=== PATIENT | female | born 1955 | race American Indian/Alaskan Native ===

== ENCOUNTER 2019-10-25 08:40 | Inpatient (IN) | payer OTHER ==
[2019-10-25] MEDS ORDERED: SODIUM CHLORIDE 0.9% 500 ML 500 ML IV ONE (09:06)
[2019-10-25] MEDS ORDERED: CEFEPIME/NS 1 GM/100 ML 1 GM/100 ML BAG IV ONE (09:08)
[2019-10-25 09:40] LABS: Bilirubin,Urine NEG (Negative); Blood,Urine NEG (Negative); Color,Urine Amber (Yellow); Mucus,Urine FEW /HPF; Protein,Urine <15 mg/dL mg/dL (Negative); Urobilinogen,Urine < 2.0 mg/dL (<2.0)
--- NOTE | 2019-10-25 09:47 | XRay Report ---
CHEST 1 VIEW 0924 INDICATION / CLINICAL INFORMATION: possible Sepsis. COMPARISON: 08/28/2015 FINDINGS: SUPPORT DEVICES: None HEART / MEDIASTINUM: No significant abnormality LUNGS / PLEURA: Lung yeh are clear of infiltrates. No pneumothorax. ADDITIONAL FINDINGS: No significant additional findings. IMPRESSION: No significant acute abnormality Signer Name: Quinten Anand MD Signed: 10/25/2019 9:43 AM Workstation Name: [id number]
[2019-10-25] MEDS ORDERED: VANCOMYCIN PHARMACY TO DOSE IV SCH (10:00)
[2019-10-25] MEDS ORDERED: VANCOMYCIN 1,500 MG in SODIUM CHLORIDE 0.9% 500 ML 500 ML IV ONE (10:00)
[2019-10-25 10:14] LABS: Hematocrit 41.7 % (30.3-42.9); Hemoglobin 13.4 gm/dl (10.1-14.3); Mean Corpuscular HGB Conc 32 % (30-34); Mean Corpuscular Volume 103 fl (79-97); Platelet Count 136 K/mm3 (140-440); Red Blood Count 4.03 M/mm3 (3.65-5.03); Red Cell Distribution Width 19.4 % (13.2-15.2)
[2019-10-25 10:28] LABS: INR 1.07 (0.87-1.13); Partial Thromboplastin Time 30.4 Sec. (24.2-36.6)
[2019-10-25 10:30] LABS: Creatine Kinase MB 5.5 ng/mL (0.0-4.0)
[2019-10-25 10:31] LABS: Albumin 3.2 g/dL (3.9-5); BUN/Creatinine Ratio 37; Blood Urea Nitrogen 88 mg/dL (7-17); Calcium 9.4 mg/dL (8.4-10.2); Hemolysis Index 110
[2019-10-25 10:32] LABS: Bilirubin,Direct < 0.2 mg/dL (0-0.2)
--- NOTE | 2019-10-25 10:59 | Emergency Department Report ---
ED General Adult HPI - General Chief complaint: Altered Mental Status Stated complaint: POSS STROKE Time Seen by Provider: 10/25/19 09:05 Source: EMS Mode of arrival: Stretcher Limitations: Other - History of Present Illness Initial comments: This is a 64-year-old female who arrives in the emergency department stuporous. She was found in a hotel room. No further information is available regarding her present illness. Upon review of her 2016 discharge summary. Apparently she was here for sepsis at that time. The source was urinary. Apparently she had an obstructive uropathy requiring nephrostomy. She was treated for E. coli sepsis successfull y.: 08/28/15 05:53 PICC Line Placement [Consult to PICC Line RN] [CONS] Urgent Reason For Exam: septic shock Type Line:: PICC 08/28/15 10:18 Consult to Physician [CONS] Routine Consulting Provider: DIONNA COOPER Reason For Exam: urosepsis, worsening leukocytosis Place consult to:: [facility] Notified:: Phone number called:: [phone] Was contact made?: Yes If yes, spoke with:: YOLANDA Time called:: 10:59 08/29/15 12:40 Consult to Physician [CONS] Routine Consulting Provider: BOBBY MUELLER Reason For Exam: left obstructing stone Place consult to:: Dr. Mueller Notified:: OFFICE Phone number called:: [phone] Was contact made?: Yes If yes, spoke with:: JULIA Time called:: 15:34 09/01/15 09:59 Physical Therapy Evaluation and Treat [CONS] Routine Comment: Reason For Exam: debility Primary care physician: DRY CHAIN PULLER Hospitalization Reason for admission: septic shock Condition: Serious Pertinent studies: Chest x-ray on admission-no acute abnormalities CT abdomen and pelvis-3 mm stone in the left mid left ureter causing mild left hydronephrosis Procedures: 08/27-left sided nephrostomy tube placement 09/07/15-cystoscopy and ureteroscopy with laser of the stone and removal of the nephrostomy tube and placement of double J stent Hospital course: This is a 60 yr old female with PMH sx for hypertension admitted on 08/27 for septic shock due to Escherichia coli pyelonephritis with obstructive uropathy and had Escherichia coli bacteremia. CT abdomen pelvis revealed 3 mm stone in the left ureter with mild left-sided hydronephrosis Patient was initially admitted to the intensive care unit and was placed on pressors. Patient was seen in consultation by interventional radiology and had left-sided percutaneous nephrostomy tube placed on 08/27 with findings of gross pus at the time of placement. Urine and blood cultures grew Escherichia coli. Patient was seen in consultation by urology and once the bacteremia was cleared patient had cystoscopy and ureteroscopy with double-J stent placement. Patient was also seen in consultation by ID. She completed treatment with ceftriaxone. Also during hospital stay patient developed acute renal failure and thrombocytopenia which resolved. I have seen and examined the patient today. No complaints verbalized Vitals reviewed and stable Patient is stable at this time to be discharged from the hospital. Patient was evaluated by physical therapy and will request reevaluation prior to discharge for home needs. Patient will be discharged home and she has completed her antibiotics Final diagnoses 1. Septic shock secondary to Escherichia coli pyelonephritis with obstructive uropathy and Escherichia coli bacteremia 2. Acute renal failure resolving 3. Thrombocytopenia resolved 4. Anemia of chronic disease 5. ETOH abuse Total time spent on discharge is about 32 minutes Disposition: DISCHARGED TO HOME OR SELFCARE Severity scale (0 -10): 0 - Related Data Home Medications Medication Instructions Recorded Confirmed Last Taken Citalopram [celeXA] 10 mg PO QDAY 08/27/15 08/27/15 08/24/15 Previous Rx's Medication Instructions Recorded Last Taken Type Folic Acid [Folvite] 1 mg PO QDAY #30 tablet 09/08/15 Unknown Rx Thiamine [Vitamin B-1] 100 mg PO QDAY #30 tablet 09/08/15 Unknown Rx Triamter/Hctz 37.5-25 mg 1 tab PO QDAY #30 tablet 09/08/15 Unknown Rx [Maxzide-25] Cyclobenzaprine [Flexeril] 10 mg PO TID PRN #14 tablet 08/22/16 Unknown Rx HYDROcodone/APAP 5-325 [[place] 1 - 2 each PO Q6HR PRN #14 tablet 08/22/16 Unknown Rx 5/325] Ibuprofen [Motrin 800 MG tab] 800 mg PO Q8HR PRN #20 tablet 08/22/16 Unknown Rx Allergies Allergy/AdvReac Type Severity Reaction Status Date / Time No Known Allergies Allergy Verified 10/25/19 09:17 ED Review of Systems ROS: Stated complaint: POSS STROKE Other details as noted in HPI Comment: Unobtainable due to pts medical conditions ED Past Medical Hx - Past Medical History Hx Hypertension: Yes Hx Heart Attack/AMI: No Hx Congestive Heart Failure: No Hx Diabetes: No Hx Liver Disease: No Hx Renal Disease: No Hx Sickle Cell Disease: No Hx Seizures: No Hx Kidney Stones: Yes Hx Asthma: No Hx COPD: No Additional medical history: JOIE - Surgical History Hx Pacemaker: No Hx Internal Defibrillator: No Additional Surgical History: JOIE - Social History Smoking Status: Unknown if ever smoked - Medications Home Medications: Home Medications Medication Instructions Recorded Confirmed Last Taken Type Citalopram [celeXA] 10 mg PO QDAY 08/27/15 08/27/15 08/24/15 History Folic Acid [Folvite] 1 mg PO QDAY #30 tablet 09/08/15 Unknown Rx Thiamine [Vitamin B-1] 100 mg PO QDAY #30 tablet 09/08/15 Unknown Rx Triamter/Hctz 37.5-25 mg 1 tab PO QDAY #30 tablet 09/08/15 Unknown Rx [Maxzide-25] Cyclobenzaprine [Flexeril] 10 mg PO TID PRN #14 tablet 08/22/16 Unknown Rx HYDROcodone/APAP 5-325 [[place] 1 - 2 each PO Q6HR PRN #14 tablet 08/22/16 Unknown Rx 5/325] Ibuprofen [Motrin 800 MG tab] 800 mg PO Q8HR PRN #20 tablet 08/22/16 Unknown Rx ED Physical Exam - General Limitations: Altered Mental Status, Other (Patient is able to protect her airway) General appearance: lethargic (/Stuporous) - Head Head exam: Present: atraumatic - Eye Eye exam: Present: normal appearance. Absent: scleral icterus - ENT ENT exam: Present: mucous membranes dry - Neck Neck exam: Absent: tenderness, meningismus - Respiratory Respiratory exam: Present: normal lung sounds bilaterally. Absent: respiratory distress - Cardiovascular Cardiovascular Exam: Present: regular rate, normal rhythm. Absent: systolic murmur, diastolic murmur, rubs, gallop - GI/Abdominal GI/Abdominal exam: Present: soft. Absent: distended, tenderness, guarding, rebound - Extremities Exam Extremities exam: Present: normal inspection. Absent: calf tenderness - Back Exam Back exam: Present: other (Limited inspection nothing abnormal seen yet) - Neurological Exam Neurological exam: Present: altered (No gross focality generalized weakness. Minimally verbal.), other (No gross focality generalized weakness. Minimally verbal. Minimal ability to follow command.) - Psychiatric Psychiatric exam: Present: flat affect (And altered) ED Course Vital Signs 10/25/19 10/25/19 09:09 09:11 Temperature 94.3 F L 94.3 F L Pulse Rate 92 H 76 Respiratory 16 13 Rate Blood Pressure 123/72 Blood Pressure 123/72 [Left] O2 Sat by Pulse 100 100 Oximetry - Reevaluation(s) Reevaluation #1: Patient was placed on hypothermia blanket. She was given a fluid bolus. She was presumptively treated for sepsis. Chest x-ray showed nothing acute. CT shows diffuse cerebral calcifications which I think are chronic. Radiologist interpretation is pending. I have ordered a CT of the patient's abdomen and pelvis. I would like to exclude obstructive nephropathy as the patient has experienced this and an E. coli sepsis in the past. I spoke to the hospitalist service. They have accepted this patient further care and evaluation. 10/25/19 11:04 ED Medical Decision Making - Lab Data Result diagrams: 10/25/19 09:15 10/25/19 09:15 Laboratory Results - last 24 hr 10/25/19 10/25/19 10/25/19 09:03 09:15 09:15 WBC 27.7 H RBC 4.03 Hgb 13.4 Hct 41.7 MCV 103 H MCH 33 H MCHC 32 RDW 19.4 H Plt Count 136 L Seg Neutrophils % Back Up Scan Coordinator PT 14.0 INR 1.07 APTT 30.4 VBG pH Sodium Chloride Carbon Dioxide BUN Creatinine Estimated GFR BUN/Creatinine Ratio Glucose Lactic Acid Calcium Magnesium Total Bilirubin Direct Bilirubin Alkaline Phosphatase Ammonia CK-MB (CK-2) Troponin T NT-Pro-B Natriuret Pep Total Protein Albumin Albumin/Globulin Ratio Lipase Urine Color [place] Urine Turbidity Clear Urine pH 5.0 Ur Specific [place] 1.017 Urine Protein <15 mg/dl Urine Glucose (UA) Neg Urine Ketones Neg Urine Blood Neg Urine Nitrite Neg Urine Bilirubin Neg Urine Urobilinogen < 2.0 Ur Leukocyte Esterase Neg Urine WBC (Auto) 3.0 Urine RBC (Auto) 1.0 Urine Mucus Few 10/25/19 10/25/19 10/25/19 09:15 09:15 09:15 WBC RBC Hgb Hct MCV MCH MCHC RDW Plt Count Seg Neutrophils % PT INR APTT VBG pH 7.370 Sodium 143 Chloride 103.5 Carbon Dioxide 13 L BUN 88 H Creatinine 2.4 H Estimated GFR 25 BUN/Creatinine Ratio 37 Glucose 140 H Lactic Acid 3.40 H* Calcium 9.4 Magnesium 3.00 H Total Bilirubin 0.40 Direct Bilirubin < 0.2 Alkaline Phosphatase 121 Ammonia CK-MB (CK-2) 5.5 H Troponin T < 0.010 NT-Pro-B Natriuret Pep 806.3 Total Protein 6.9 Albumin 3.2 L Albumin/Globulin Ratio 0.9 Lipase 194 H Urine Color Urine Turbidity Urine pH Ur Specific [place] Urine Protein Urine Glucose (UA) Urine Ketones Urine Blood Urine Nitrite Urine Bilirubin Urine Urobilinogen Ur Leukocyte Esterase Urine WBC (Auto) Urine RBC (Auto) Urine Mucus 10/25/19 09:15 WBC RBC Hgb Hct MCV MCH MCHC RDW Plt Count Seg Neutrophils % PT INR APTT VBG pH Sodium Chloride Carbon Dioxide BUN Creatinine Estimated GFR BUN/Creatinine Ratio Glucose Lactic Acid Calcium Magnesium Total Bilirubin Direct Bilirubin Alkaline Phosphatase Ammonia 48.0 CK-MB (CK-2) Troponin T NT-Pro-B Natriuret Pep Total Protein Albumin Albumin/Globulin Ratio Lipase Urine Color Urine Turbidity Urine pH Ur Specific [place] Urine Protein Urine Glucose (UA) Urine Ketones Urine Blood Urine Nitrite Urine Bilirubin Urine Urobilinogen Ur Leukocyte Esterase Urine WBC (Auto) Urine RBC (Auto) Urine Mucus Laboratory Results - last 24 hr 10/25/19 10/25/19 10/25/19 09:03 09:15 09:15 WBC 27.7 H RBC 4.03 Hgb 13.4 Hct 41.7 MCV 103 H MCH 33 H MCHC 32 RDW 19.4 H Plt Count 136 L Seg Neutrophils % Back Up Scan Coordinator PT 14.0 INR 1.07 APTT 30.4 VBG pH Sodium Chloride Carbon Dioxide BUN Creatinine Estimated GFR BUN/Creatinine Ratio Glucose Lactic Acid Calcium Magnesium Total Bilirubin Direct Bilirubin Alkaline Phosphatase Ammonia CK-MB (CK-2) Troponin T NT-Pro-B Natriuret Pep Total Protein Albumin Albumin/Globulin Ratio Lipase Urine Color [place] Urine Turbidity Clear Urine pH 5.0 Ur Specific [place] 1.017 Urine Protein <15 mg/dl Urine Glucose (UA) Neg Urine Ketones Neg Urine Blood Neg Urine Nitrite Neg Urine Bilirubin Neg Urine Urobilinogen < 2.0 Ur Leukocyte Esterase Neg Urine WBC (Auto) 3.0 Urine RBC (Auto) 1.0 Urine Mucus Few 10/25/19 10/25/19 10/25/19 09:15 09:15 09:15 WBC RBC Hgb Hct MCV MCH MCHC RDW Plt Count Seg Neutrophils % PT INR APTT VBG pH 7.370 Sodium 143 Chloride 103.5 Carbon Dioxide 13 L BUN 88 H Creatinine 2.4 H Estimated GFR 25 BUN/Creatinine Ratio 37 Glucose 140 H Lactic Acid 3.40 H* Calcium 9.4 Magnesium 3.00 H Total Bilirubin 0.40 Direct Bilirubin < 0.2 Alkaline Phosphatase 121 Ammonia CK-MB (CK-2) 5.5 H Troponin T < 0.010 NT-Pro-B Natriuret Pep 806.3 Total Protein 6.9 Albumin 3.2 L Albumin/Globulin Ratio 0.9 Lipase 194 H Urine Color Urine Turbidity Urine pH Ur Specific [place] Urine Protein Urine Glucose (UA) Urine Ketones Urine Blood Urine Nitrite Urine Bilirubin Urine Urobilinogen Ur Leukocyte Esterase Urine WBC (Auto) Urine RBC (Auto) Urine Mucus 10/25/19 09:15 WBC RBC Hgb Hct MCV MCH MCHC RDW Plt Count Seg Neutrophils % PT INR APTT VBG pH Sodium Chloride Carbon Dioxide BUN Creatinine Estimated GFR BUN/Creatinine Ratio Glucose Lactic Acid Calcium Magnesium Total Bilirubin Direct Bilirubin Alkaline Phosphatase Ammonia 48.0 CK-MB (CK-2) Troponin T NT-Pro-B Natriuret Pep Total Protein Albumin Albumin/Globulin Ratio Lipase Urine Color Urine Turbidity Urine pH Ur Specific [place] Urine Protein Urine Glucose (UA) Urine Ketones Urine Blood Urine Nitrite Urine Bilirubin Urine Urobilinogen Ur Leukocyte Esterase Urine WBC (Auto) Urine RBC (Auto) Urine Mucus K is 4.64 sl ("very very slight") hemolysis per lab. - EKG Data -: EKG Interpreted by Me EKG shows normal: sinus rhythm, axis, intervals, QRS complexes, ST-T waves Rate: normal - EKG Data Interpretation: LVH (LVH likely with associated repolarization abnormality cannot exclude ischemia anteriorly) - Radiology Data Radiology results: report reviewed (CT head yet pending radiologist report), image reviewed Critical Care Time: Yes Critical care time in (mins) excluding proc time.: 60 Critical care attestation.: If time is entered above; I have spent that time in minutes in the direct care of this critically ill patient, excluding procedure time. ED Disposition Clinical Impression: Prerenal azotemia Hypothermia Qualifiers: Encounter type: initial encounter Qualified Code(s): T68.XXXA - Hypothermia, initial encounter Sepsis Qualifiers: Sepsis type: sepsis due to unspecified organism Sepsis acute organ dysfunction status: with acute organ dysfunction Severe sepsis acute organ dysfunction type: acute renal failure Acute renal failure type: unspecified Severe sepsis shock status: without septic shock Qualified Code(s): A41.9 - Sepsis, unspecified organism; R65.20 - Severe sepsis without septic shock; N17.9 - Acute kidney failure, unspecified Acute renal failure Qualifiers: Acute renal failure type: unspecified Qualified Code(s): N17.9 - Acute kidney failure, unspecified Disposition: 09 OP ADMIT IP TO THIS HOSP Is pt being admited?: Yes Does the pt Need Aspirin: Yes Condition: Stable Time of Disposition: 11:13
[2019-10-25] MEDS ORDERED: SODIUM CHLORIDE 0.9% 1000 ML 1,000 ML IV ONE (11:00)
[2019-10-25 11:11] LABS: Alanine Aminotransferase 85 units/L (7-56)
[2019-10-25] MEDS ORDERED: ASPIRIN 300 MG RECT SUPP PR ONE (11:13)
--- NOTE | 2019-10-25 11:16 | Cat Scan Report ---
CT HEAD WITHOUT CONTRAST INDICATION / CLINICAL INFORMATION: AMS. TECHNIQUE: All CT scans at this location are performed using CT dose reduction for ALARA by means of automated e xposure control. COMPARISON: Head CT 08/18/2016. FINDINGS: HEMORRHAGE: No evidence of intracranial hemorrhage or extra-axial fluid collection. EXTRA-AXIAL SPACES: Cortical sulci, sylvian fissures and basilar cisterns have an unremarkable appear ance. VENTRICULAR SYSTEM: The ventricular system is of normal size and configuration. CEREBRAL PARENCHYMA: Dense bilateral calcifications are noted laterally symmetrical basal ganglia dis tribution. Similar findings are seen in the dentate nuclei of the cerebellum bilaterally. In addition there is evidence of mineralization along the medial aspect of both temporal lobes and in the engineering drafter ior aspect of the thalamic bilaterally. Calcifications are also demonstrated in the fontanez radiata an d centrum semiovale bilaterally. These findings are all stable in comparison to 08/18/2016. Possibili ty of endocrinopathy such as hyperthyroidism, hypothyroidism, pseudohyperparathyroidism and its varia tions should be considered. Fahr disease and [place] Spatz disease could be considered. Similar findings can be seen in patients status post radiation therapy and chemotherapy. Correlation with juany atment history is advised. In any event these findings are stable. MIDLINE SHIFT OR HERNIATION: There is no mass effect. CEREBELLUM / BRAINSTEM: Brainstem and cerebellum have an unremarkable appearance. INTRACRANIAL VESSELS:No abnormalities are identified on this noncontrast head CT. ORBITS: visualized portions of the orbits have an unremarkable appearance. SOFT TISSUES of HEAD: No significant abnormality. CALVARIUM: Evaluation of bone windows reveals no abnormalities. PARANASAL SINUSES / MASTOID AIR CELLS: Paranasal sinuses are free from inflammatory mucosal disease. Mastoid air cells are normally pneumatized. ADDITIONAL FINDINGS: None. IMPRESSION: 1. Fairly extensive bilaterally symmetrical intracranial calcifications are stable since 08/18/2016. These findings likely reflect the result of intercranial but the. Differential diagnosis is considere d above. 2. No acute intracranial abnormalities are identified. Signer Name: Bhavesh Zapien MD Signed: 10/25/2019 11:12 AM Workstation Name: [id number]
[2019-10-25] MEDS ORDERED: ACETAMINOPHEN 325 MG TAB PO PRN (11:55)
[2019-10-25] MEDS ORDERED: ONDANSETRON 4 MG/2 ML INJ IV PRN (11:55)
[2019-10-25 11:58] LABS: Basophils % (Manual) 0 % (0.0-1.8); Eosinophils % (Manual) 0 % (0.0-4.3); Total Cells Counted 100
[2019-10-25 11:59] LABS: Target Cells Few
[2019-10-25 12:00] LABS: Platelet Estimate Consistent w Auto
[2019-10-25] MEDS ORDERED: SODIUM CHLORIDE 0.45% 1000 ML 1,000 ML IV SCH (12:00)
[2019-10-25] MEDS ORDERED: SODIUM CHLORIDE 0.9% 1000 ML 1,000 ML ONE (12:05)
[2019-10-25] MEDS ORDERED: SODIUM BICARBONATE 150 MEQ in DEXTROSE 5% IN WATER 1,000 ML IV SCH (12:30)
--- NOTE | 2019-10-25 13:18 | Cat Scan Report ---
CT ABDOMEN AND PELVIS WITHOUT CONTRAST INDICATION: Sepsis, history of kidney stone CONTRAST: Without IV COMPARISON: 08/27/2015, report unavailable All CT scans at this location are performed using CT dose reduction for ALARA by means of automated e xposure control. FINDINGS: Chronic changes are seen in the lung bases. In the anterior aspect of the lateral segment o f the right middle lobe peripherally a small solid appearing nodule is seen measuring just under 4 mm which is an area not well seen on prior study. No pneumoperitoneum is seen. No significant abdominal wall herniation is noted. No free fluid is seen . No lymphadenopathy is noted. Gallbladder is mildly distended and diffusely shows moderate increase in density though I do not definitely see wall thickening or calculi. No biliary dilatation is seen. I see no significant abnormalities of the adrenals, pancreas, kidneys, liver, or spleen. Mild colonic diverticulosis is seen without evidence of diverticulitis. Appendix appears within normal limits. Po rtions of the right and transverse colon possibly the descending colon show possible wall thickening suggesting colitis. No small bowel abnormalities are seen. I do not see evidence of bowel obstruction . No evidence of perforation or abscess is seen. Multiple uterine leiomyomata are noted, some calcifi ed. No other pelvic masses are seen. No urinary tract calculi or evidence of obstruction are noted. U rinary bladder is mildly distended. IMPRESSION: 1. Possible mild colonic wall thickening suggesting colitis without obvious complication 2. Distended gallbladder with general increased density no definite acute abnormality and no definite calculi seen 3. Tiny right middle lobe nodule. See below. Signer Name: Quinten Anand MD Signed: 10/25/2019 1:14 PM Workstation Name: [id number]
[2019-10-25] MEDS ORDERED: ASPIRIN 600 MG RECT SUPP PR ONE (13:28)
--- NOTE | 2019-10-25 14:57 | History and Physical Report ---
History of Present Illness Date of admission: 10/25/19 11:14 Chief complaint: Brought by friend when she was found stuporous and confused History of present illness: 64-year-old woman who was found stuporous in her hotel room. Apparently her friend could not reach her by phone and then she went to check on her in a hotel room and found her to be stuporous and confused, then they checked on her in the hotelpatient is altered and unable to provide any history. In the ER patient was hypothermic, confused and appeared very dehydrated. Past medical history; history of nephrolithiasis, history of previous nephrostomy tube in the past, hypertension Past surgical history; , nephrostomy Social history; unknown, the patient was brought from a hotel room, questionable history of alcohol abuse, unclear Family history; hypertension Medications and Allergies Allergies Allergy/AdvReac Type Severity Reaction Status Date / Time No Known Allergies Allergy Verified 10/25/19 09:17 Home Medications Medication Instructions Recorded Confirmed Last Taken Type Citalopram [celeXA] 10 mg PO QDAY 08/27/15 08/27/15 08/24/15 History Folic Acid [Folvite] 1 mg PO QDAY #30 tablet 09/08/15 Unknown Rx Thiamine [Vitamin B-1] 100 mg PO QDAY #30 tablet 09/08/15 Unknown Rx Triamter/Hctz 37.5-25 mg 1 tab PO QDAY #30 tablet 09/08/15 Unknown Rx [Maxzide-25] Cyclobenzaprine [Flexeril] 10 mg PO TID PRN #14 tablet 08/22/16 Unknown Rx HYDROcodone/APAP 5-325 [[place] 1 - 2 each PO Q6HR PRN #14 tablet 08/22/16 Unknown Rx 5/325] Ibuprofen [Motrin 800 MG tab] 800 mg PO Q8HR PRN #20 tablet 08/22/16 Unknown Rx Active Meds: Active Medications Acetaminophen (Tylenol) 650 mg PO Q4H PRN PRN Reason: Pain MILD(1-3)/Fever >100.5/SANTANA Citalopram Hydrobromide (Celexa) 10 mg PO QDAY [facility] Folic Acid (Folvite) 1 mg PO QDAY [facility] Sodium Chloride (Nacl 0.45% 1000 Ml) 1,000 mls @ 150 mls/hr IV DIRECT [facility] Sodium Bicarbonate 150 meq/ (Dextrose) 1,150 mls @ 75 mls/hr IV DIRECT [facility] Vancomycin HCl (Vancomycin/Ns 1 Gm/250 Ml) 1 gm in 250 mls @ 166.667 mls/hr IV Q24H [facility] Ondansetron HCl (Zofran) 4 mg IV Q8H PRN PRN Reason: Nausea And Vomiting Thiamine HCl (Vitamin B-1) 100 mg PO QDAY [facility] Review of Systems ROS unobtainable: due to mental status Exam - Constitutional Vitals: Temp Pulse Resp BP Pulse Ox 93.4 F L 78 21 133/82 100 10/25/19 13:42 10/25/19 13:42 10/25/19 13:42 10/25/19 13:42 10/25/19 13:42 General appearance: Present: mild distress - EENT Eyes: Present: PERRL ENT: hearing intact, clear oral mucosa (Dry mucous membranes) - Neck Neck: Present: supple, normal ROM - Respiratory Respiratory effort: normal Respiratory: bilateral: CTA - Cardiovascular Heart Sounds: Present: S1 & S2. Absent: rub, click - Extremities Extremities: pulses symmetrical, No edema Peripheral Pulses: within normal limits - Abdominal General gastrointestinal: Present: soft, non-tender, non-distended, normal bowel sounds Female genitourinary: Present: normal - Integumentary Integumentary: Present: clear, warm, dry - Musculoskeletal Musculoskeletal: gait normal, strength equal bilaterally - Psychiatric Psychiatric: no appropriate mood/affect, no intact judgment & insight, no memory intact (Patient is extremely confused, only oriented to person, is not answering questions appropriately, appears stuporous) - Neurologic Neurologic: CNII-XII intact, moves all extremities Results - Labs CBC & Chem 7: 10/26/19 05:21 10/26/19 05:21 Labs: Laboratory Last Values WBC 27.7 K/mm3 (4.5-11.0) H 10/25/19 09:15 RBC 4.03 M/mm3 (3.65-5.03) 10/25/19 09:15 Hgb 13.4 gm/dl (10.1-14.3) 10/25/19 09:15 Hct 41.7 % (30.3-42.9) 10/25/19 09:15 MCV 103 fl (79-97) H 10/25/19 09:15 MCH 33 pg (28-32) H 10/25/19 09:15 MCHC 32 % (30-34) 10/25/19 09:15 RDW 19.4 % (13.2-15.2) H 10/25/19 09:15 Plt Count 136 K/mm3 (140-440) L 10/25/19 09:15 Add Manual Diff Complete 10/25/19 09:15 Total Counted 100 10/25/19 09:15 Seg Neutrophils % Size Painter 10/25/19 09:15 Seg Neuts % (Manual) 98.0 % (40.0-70.0) H 10/25/19 09:15 Band Neutrophils % 0 % 10/25/19 09:15 Lymphocytes % (Manual) 0 % (13.4-35.0) L 10/25/19 09:15 Reactive Lymphs % (Man) 0 % 10/25/19 09:15 Monocytes % (Manual) 2.0 % (0.0-7.3) 10/25/19 09:15 Eosinophils % (Manual) 0 % (0.0-4.3) 10/25/19 09:15 Basophils % (Manual) 0 % (0.0-1.8) 10/25/19 09:15 Metamyelocytes % 0 % 10/25/19 09:15 Myelocytes % 0 % 10/25/19 09:15 Promyelocytes % 0 % 10/25/19 09:15 Blast Cells % 0 % 10/25/19 09:15 Nucleated RBC % Not Reportable 10/25/19 09:15 Seg Neutrophils # Man 27.1 K/mm3 (1.8-7.7) H 10/25/19 09:15 Band Neutrophils # 0.0 K/mm3 10/25/19 09:15 Lymphocytes # (Manual) 0.0 K/mm3 (1.2-5.4) L 10/25/19 09:15 Abs React Lymphs (Man) 0.0 K/mm3 10/25/19 09:15 Monocytes # (Manual) 0.6 K/mm3 (0.0-0.8) 10/25/19 09:15 Eosinophils # (Manual) 0.0 K/mm3 (0.0-0.4) 10/25/19 09:15 Basophils # (Manual) 0.0 K/mm3 (0.0-0.1) 10/25/19 09:15 Metamyelocytes # 0.0 K/mm3 10/25/19 09:15 Myelocytes # 0.0 K/mm3 10/25/19 09:15 Promyelocytes # 0.0 K/mm3 10/25/19 09:15 Blast Cells # 0.0 K/mm3 10/25/19 09:15 WBC Morphology Not Reportable 10/25/19 09:15 Hypersegmented Neuts Not Reportable 10/25/19 09:15 Hyposegmented Neuts Not Reportable 10/25/19 09:15 Hypogranular Neuts Not Reportable 10/25/19 09:15 Smudge Cells Not Reportable 10/25/19 09:15 Toxic Granulation Not Reportable 10/25/19 09:15 Toxic Vacuolation Not Reportable 10/25/19 09:15 Dohle Bodies Not Reportable 10/25/19 09:15 Pelger-Huet Anomaly Not Reportable 10/25/19 09:15 Boogie Rods Not Reportable 10/25/19 09:15 Platelet Estimate Consistent w auto 10/25/19 09:15 Clumped Platelets Not Reportable 10/25/19 09:15 Plt Clumps, EDTA Not Reportable 10/25/19 09:15 Large Platelets Not Reportable 10/25/19 09:15 Giant Platelets Not Reportable 10/25/19 09:15 Platelet Satelliting Not Reportable 10/25/19 09:15 Plt Morphology Comment Not Reportable 10/25/19 09:15 RBC Morphology Not Reportable 10/25/19 09:15 Dimorphic RBCs Not Reportable 10/25/19 09:15 Polychromasia Not Reportable 10/25/19 09:15 Hypochromasia Not Reportable 10/25/19 09:15 Poikilocytosis Not Reportable 10/25/19 09:15 Anisocytosis Not Reportable 10/25/19 09:15 Microcytosis Not Reportable 10/25/19 09:15 Macrocytosis Not Reportable 10/25/19 09:15 Spherocytes Not Reportable 10/25/19 09:15 Pappenheimer Bodies Not Reportable 10/25/19 09:15 Sickle Cells Not Reportable 10/25/19 09:15 Target Cells Few 10/25/19 09:15 Tear Drop Cells Not Reportable 10/25/19 09:15 Ovalocytes Not Reportable 10/25/19 09:15 Helmet Cells Not Reportable 10/25/19 09:15 [place] Bodies Not Reportable 10/25/19 09:15 [place] Rings Not Reportable 10/25/19 09:15 [place] Cells Not Reportable 10/25/19 09:15 Bite Cells Not Reportable 10/25/19 09:15 Crenated Cell Not Reportable 10/25/19 09:15 Elliptocytes Not Reportable 10/25/19 09:15 Acanthocytes (Spur) Not Reportable 10/25/19 09:15 Rouleaux Not Reportable 10/25/19 09:15 Hemoglobin C Crystals Not Reportable 10/25/19 09:15 Schistocytes Not Reportable 10/25/19 09:15 Malaria parasites Not Reportable 10/25/19 09:15 Albert Bodies Not Reportable 10/25/19 09:15 Hem Pathologist Commnt No 10/25/19 09:15 PT 14.0 Sec. (12.2-14.9) 10/25/19 09:15 INR 1.07 (0.87-1.13) 10/25/19 09:15 APTT 30.4 Sec. (24.2-36.6) 10/25/19 09:15 VBG pH 7.370 (7.320-7.420) 10/25/19 09:15 Sodium 143 mmol/L (137-145) 10/25/19 09:15 Potassium 4.6 mmol/L (3.6-5.0) 10/25/19 09:15 Chloride 103.5 mmol/L (98-107) 10/25/19 09:15 Carbon Dioxide 13 mmol/L (22-30) L 10/25/19 09:15 Anion Gap 31 mmol/L 10/25/19 09:15 BUN 88 mg/dL (7-17) H 10/25/19 09:15 Creatinine 2.4 mg/dL (0.7-1.2) H 10/25/19 09:15 Estimated GFR 25 ml/min 10/25/19 09:15 BUN/Creatinine Ratio 37 % 10/25/19 09:15 Glucose 140 mg/dL (65-100) H 10/25/19 09:15 Lactic Acid 2.00 mmol/L (0.7-2.0) 10/25/19 13:30 Calcium 9.4 mg/dL (8.4-10.2) 10/25/19 09:15 Magnesium 3.00 mg/dL (1.7-2.3) H 10/25/19 09:15 Total Bilirubin 0.40 mg/dL (0.1-1.2) 10/25/19 09:15 Direct Bilirubin < 0.2 mg/dL (0-0.2) 10/25/19 09:15 AST 98 units/L (5-40) H 10/25/19 09:15 ALT 85 units/L (7-56) H 10/25/19 09:15 Alkaline Phosphatase 121 units/L (35-129) 10/25/19 09:15 Ammonia 48.0 umol/L (25-60) 10/25/19 09:15 Total Creatine Kinase 297 units/L (30-135) H 10/25/19 09:15 CK-MB (CK-2) 5.5 ng/mL (0.0-4.0) H 10/25/19 09:15 CK-MB (CK-2) Rel Index 1.8 (0-4) 10/25/19 09:15 Troponin T < 0.010 ng/mL (0.00-0.029) 10/25/19 09:15 NT-Pro-B Natriuret Pep 806.3 pg/mL (0-900) 10/25/19 09:15 Total Protein 6.9 g/dL (6.3-8.2) 10/25/19 09:15 Albumin 3.2 g/dL (3.9-5) L 10/25/19 09:15 Albumin/Globulin Ratio 0.9 % 10/25/19 09:15 Lipase 194 units/L (13-60) H 10/25/19 09:15 TSH 3.640 mlU/mL (0.270-4.200) 10/25/19 13:30 Free T4 0.98 ng/dL (0.76-1.46) 10/25/19 13:30 Thyroxine (T4) 5.8 ug/dL (4.0-12.0) 10/25/19 13:30 Urine Color [place] (Yellow) 10/25/19 09:03 Urine Turbidity Clear (Clear) 10/25/19 09:03 Urine pH 5.0 (5.0-7.0) 10/25/19 09:03 Ur Specific [place] 1.017 (1.003-1.030) 10/25/19 09:03 Urine Protein <15 mg/dl mg/dL (Negative) 10/25/19 09:03 Urine Glucose (UA) Neg mg/dL (Negative) 10/25/19 09:03 Urine Ketones Neg mg/dL (Negative) 10/25/19 09:03 Urine Blood Neg (Negative) 10/25/19 09:03 Urine Nitrite Neg (Negative) 10/25/19 09:03 Urine Bilirubin Neg (Negative) 10/25/19 09:03 Urine Urobilinogen < 2.0 mg/dL (<2.0) 10/25/19 09:03 Ur Leukocyte Esterase Neg (Negative) 10/25/19 09:03 Urine WBC (Auto) 3.0 /HPF (0.0-6.0) 10/25/19 09:03 Urine RBC (Auto) 1.0 /HPF (0.0-6.0) 10/25/19 09:03 Urine Mucus Few /HPF 10/25/19 09:03 Assessment and Plan Assessment and plan: 64f w hx of etoh abuse found stuporous and confused Imaging reviewed, chest x-ray and CT head no acute findings. Labs show severe metabolic acidosis and acute kidney failure with a BUN of 88 and creatinine of 2.4. SIRS; received empiric abx in ER, IVF, UA, Cxr neg, fup blood cx Hypothermia; jason roxannegger, tsh wnl Metabolic acidosis and lactic acidosis; bicarb drip Acute metabolic encephalopathy; likely due to kidney failure ISMAEL, uremia due to vasomotor nephropathy ; IVF, bicarb drip, CT abdomen pelvis does not show any obstruction hx of etoh?, monitor for signs of withdrawal, thiamine and folate, thrombocytopenia is likely due to alcohol abuse, platelet counts 136 Moderate malnutrition, albumin of 3.2., CK 297 Critical care time 35 minutes
--- NOTE | 2019-10-25 15:34 | Consultation ---
History of Present Illness - Reason for Consult Consult date: 10/25/19 acute renal failure Requesting physician: JAMEEL MEADE - History of Present Illness 64-year-old lady brought from the hotel room where she was found stuporous she has a history of alcohol abuse. Patient not able to give a history. She has a prior admission in 2016 with obstructive uropathy and E. coli sepsis. Patient hypothermic on presentation. BUN/creatinine found to be elevated at 88/2.4 mg/dL. Lactic acid high at 2.4 mg/dL. She has been admitted to the intensive care unit for further management. I am consulted to assist in managing renal failure. Past History Past Medical History: hypertension, other (History of nephrolithiasis, history of obstructive uropathy with E. coli sepsis) Past Surgical History: , Other (Nephrostomy tube placement ) Social history: other (Unable to obtain due to mental status) Family history: other (Unable to obtain due to mental status) Medications and Allergies Allergies Allergy/AdvReac Type Severity Reaction Status Date / Time No Known Allergies Allergy Verified 10/25/19 09:17 Home Medications Medication Instructions Recorded Confirmed Last Taken Type Citalopram [celeXA] 10 mg PO QDAY 08/27/15 08/27/15 08/24/15 History Folic Acid [Folvite] 1 mg PO QDAY #30 tablet 09/08/15 Unknown Rx Thiamine [Vitamin B-1] 100 mg PO QDAY #30 tablet 09/08/15 Unknown Rx Triamter/Hctz 37.5-25 mg 1 tab PO QDAY #30 tablet 09/08/15 Unknown Rx [Maxzide-25] Cyclobenzaprine [Flexeril] 10 mg PO TID PRN #14 tablet 08/22/16 Unknown Rx HYDROcodone/APAP 5-325 [[place] 1 - 2 each PO Q6HR PRN #14 tablet 08/22/16 Unknown Rx 5/325] Ibuprofen [Motrin 800 MG tab] 800 mg PO Q8HR PRN #20 tablet 08/22/16 Unknown Rx Active Meds: Active Medications Acetaminophen (Tylenol) 650 mg PO Q4H PRN PRN Reason: Pain MILD(1-3)/Fever >100.5/SANTANA Citalopram Hydrobromide (Celexa) 10 mg PO QDAY [facility] Folic Acid (Folvite) 1 mg PO QDAY [facility] Sodium Chloride (Nacl 0.45% 1000 Ml) 1,000 mls @ 150 mls/hr IV DIRECT [facility] Sodium Bicarbonate 150 meq/ (Dextrose) 1,150 mls @ 75 mls/hr IV DIRECT [facility] Vancomycin HCl (Vancomycin/Ns 1 Gm/250 Ml) 1 gm in 250 mls @ 166.667 mls/hr IV Q24H [facility] Ondansetron HCl (Zofran) 4 mg IV Q8H PRN PRN Reason: Nausea And Vomiting Thiamine HCl (Vitamin B-1) 100 mg PO QDAY [facility] Review of Systems ROS unobtainable: due to mental status Exam - Vital Signs Vital signs: Vital Signs Pulse Resp BP Pulse Ox 79 20 123/72 100 10/25/19 09:00 10/25/19 09:00 10/25/19 09:00 10/25/19 09:00 - Physical Exam Narrative exam: Middle-aged -[place] female lying in bed in no acute distress HEENT: NCAT, missing lower teeth, [place] oral mucous membrane Neck: Supple, no venous distention CVS: S1S2 RRR with no murmur, rub or gallop Chest: Clear to auscultation Abdomen: Protuberant, soft, nontender, no organomegaly, bowel sounds are present Extremities: No edema Genitourinary deferred, Skin warm and dry, dry and scaly skin Neuro: Lethargic, nonverbal, opens eyes to stimulus, not following commands Results - Lab Results 10/25/19 09:15 10/25/19 09:15 Most recent lab results Calcium 9.4 mg/dL (8.4-10.2) 10/25/19 09:15 Magnesium 3.00 mg/dL (1.7-2.3) H 10/25/19 09:15 Assessment and Plan - Patient Problems (1) Acute kidney injury Current Visit: Yes Status: Acute Plan to address problem: Prerenal azotemia versus acute tubular necrosis secondary to sepsis. Elevated BUN/creatinine ratio suggests prerenal azotemia. Urinalysis was bland. Get fractional excretion of sodium. Continue volume resuscitation. Continue empiric antibiotics. Follow-up electrolytes and renal function. Avoid potential nephrotoxins. (2) Systemic inflammatory response syndrome Current Visit: Yes Status: Acute Plan to address problem: Patient with hypothermia, leukocytosis and lactic acidosis. Presumed sepsis source unclear. Cultures obtained. Continue empiric antibiotics. (3) Encephalopathy Current Visit: Yes Status: Acute Plan to address problem: Toxic/metabolic encephalopathy. Continue antibiotics. Follow-up electrolytes and renal function. Monitor mental status closely in the ICU (4) Hypertension Current Visit: Yes Status: Acute Plan to address problem: Blood pressure is normal. Continue to monitor (5) High anion gap metabolic acidosis Current Visit: No Status: Acute Plan to address problem: Lactic acidosis and uremic acidosis. Unclear if patient was also having diarrhea given the colitis on CT scan. Unable to obtain history from the patient. Follow-up lactic acid level (6) History of nephrolithiasis Current Visit: Yes Status: Acute Plan to address problem: No stones on CT scan. (7) History of alcohol abuse Current Visit: Yes Status: Acute
[2019-10-26 06:23] LABS: Hematocrit 34.6 % (30.3-42.9); Hemoglobin 11.4 gm/dl (10.1-14.3); Mean Corpuscular HGB Conc 33 % (30-34); Mean Corpuscular Volume 102 fl (79-97); Platelet Count 131 K/mm3 (140-440); Red Cell Distribution Width 19.4 % (13.2-15.2)
[2019-10-26 06:33] LABS: Calcium 8.3 mg/dL (8.4-10.2)
[2019-10-26 07:04] LABS: Basophils % (Manual) 0 % (0.0-1.8); Eosinophils % (Manual) 0 % (0.0-4.3); Total Cells Counted 100
[2019-10-26 07:06] LABS: Anisocytosis Few
[2019-10-26 07:08] LABS: Platelet Estimate Consistent w Auto
[2019-10-26] MEDS: DEXTROSE 5% IN WATER 1,000 ML IV SCH ×2 (09:19→23:46)
[2019-10-26] MEDS ORDERED: POTASSIUM CHLORIDE 40 MEQ in SODIUM CHLORIDE 0.45% 500 ML IV SCH (10:00)
[2019-10-26] MEDS: THIAMINE 100 MG TAB PO SCH (10:28)
[2019-10-26] MEDS: CITALOPRAM 10 MG TAB PO SCH (10:29)
[2019-10-26] MEDS: FOLIC ACID 1 MG TAB PO SCH (10:30)
--- NOTE | 2019-10-26 10:55 | Progress Note ---
Assessment and Plan - Patient Problems (1) Acute kidney injury Current Visit: Yes Status: Acute Plan to address problem: Elevated BUN/creatinine ratio suggests prerenal azotemia. Urinalysis was bland. Continue volume resuscitation. Continue empiric antibiotics. Follow-up electrolytes and renal function. Avoid potential nephrotoxins. (2) Systemic inflammatory response syndrome Current Visit: Yes Status: Acute Plan to address problem: s/p hypothermia, leukocytosis and lactic acidosis. Presumed sepsis source unclear. Cultures obtained. Continue empiric antibiotics. (3) Hypernatremia Current Visit: Yes Status: Acute Plan to address problem: IVF changed to D5 (4) Encephalopathy Current Visit: Yes Status: Acute Plan to address problem: Toxic/metabolic encephalopathy. Continue antibiotics. Follow-up electrolytes and renal function. (5) Hypertension Current Visit: Yes Status: Acute Plan to address problem: Blood pressure is normal. Continue to monitor (6) History of nephrolithiasis Current Visit: Yes Status: Acute Plan to address problem: No stones on CT scan. (7) History of alcohol abuse Current Visit: Yes Status: Acute Subjective Date of service: 10/26/19 Principal diagnosis: ISMAEL Interval history: Pt awake, but confused, disoriented Objective - Vital Signs Vital signs: Vital Signs - 12hr 10/25/19 10/25/19 10/25/19 23:30 23:40 23:50 Temperature Pulse Rate 101 H 105 H 100 H Pulse Rate [ From Monitor] Respiratory 25 H 25 H 20 Rate Blood Pressure 120/78 120/78 120/78 O2 Sat by Pulse 100 100 100 Oximetry 10/26/19 10/26/19 10/26/19 00:00 00:10 00:20 Temperature 97.8 F Pulse Rate 105 H 102 H 102 H Pulse Rate [ 105 H From Monitor] Respiratory 26 H 28 H 24 Rate Blood Pressure 115/75 115/75 115/75 O2 Sat by Pulse 100 100 100 Oximetry 10/26/19 10/26/19 10/26/19 00:30 00:40 00:50 Temperature Pulse Rate 101 H 105 H 97 H Pulse Rate [ From Monitor] Respiratory 13 19 18 Rate Blood Pressure 115/75 115/75 115/75 O2 Sat by Pulse 100 100 100 Oximetry 10/26/19 10/26/19 10/26/19 01:00 01:10 01:20 Temperature Pulse Rate 100 H 101 H 93 H Pulse Rate [ From Monitor] Respiratory 34 H 23 30 H Rate Blood Pressure 103/67 103/67 103/67 O2 Sat by Pulse 100 100 Oximetry 10/26/19 10/26/19 10/26/19 01:30 01:40 01:50 Temperature Pulse Rate 104 H 107 H 107 H Pulse Rate [ From Monitor] Respiratory 24 42 H 38 H Rate Blood Pressure 103/67 103/67 103/67 O2 Sat by Pulse 100 100 100 Oximetry 10/26/19 10/26/19 10/26/19 02:00 02:10 02:20 Temperature Pulse Rate 107 H 107 H 108 H Pulse Rate [ From Monitor] Respiratory 31 H 25 H 24 Rate Blood Pressure 107/71 107/71 107/71 O2 Sat by Pulse 100 100 100 Oximetry 10/26/19 10/26/19 10/26/19 02:30 02:40 02:50 Temperature Pulse Rate 107 H 110 H 109 H Pulse Rate [ From Monitor] Respiratory 40 H 32 H 20 Rate Blood Pressure 107/71 107/71 107/71 O2 Sat by Pulse 100 100 100 Oximetry 10/26/19 10/26/19 10/26/19 03:00 03:10 03:20 Temperature Pulse Rate 103 H 106 H 110 H Pulse Rate [ From Monitor] Respiratory 25 H 41 H 20 Rate Blood Pressure 102/68 102/68 102/68 O2 Sat by Pulse 100 100 100 Oximetry 10/26/19 10/26/19 10/26/19 03:30 03:40 03:50 Temperature Pulse Rate 110 H 109 H 108 H Pulse Rate [ From Monitor] Respiratory 30 H 26 H 21 Rate Blood Pressure 102/68 102/68 102/68 O2 Sat by Pulse 100 100 100 Oximetry 10/26/19 10/26/19 10/26/19 04:00 04:10 04:20 Temperature 98.0 F Pulse Rate 109 H 94 H 114 H Pulse Rate [ 110 H From Monitor] Respiratory 33 H 31 H 28 H Rate Blood Pressure 94/68 94/68 94/68 O2 Sat by Pulse 100 100 100 Oximetry 10/26/19 10/26/19 10/26/19 04:30 04:40 04:50 Temperature Pulse Rate 114 H 113 H 105 H Pulse Rate [ From Monitor] Respiratory 18 24 39 H Rate Blood Pressure 94/68 94/68 94/68 O2 Sat by Pulse 100 100 100 Oximetry 0210/26/19 10/26/19 05:00 05:10 05:20 Temperature Pulse Rate 103 H 105 H 101 H Pulse Rate [ From Monitor] Respiratory 20 42 H 38 H Rate Blood Pressure 112/82 112/82 112/82 O2 Sat by Pulse 99 100 100 Oximetry 10/26/19 10/26/19 10/26/19 05:30 05:40 05:50 Temperature Pulse Rate 101 H 97 H 104 H Pulse Rate [ From Monitor] Respiratory 39 H 25 H 41 H Rate Blood Pressure 112/82 112/82 112/82 O2 Sat by Pulse 100 100 100 Oximetry 10/26/19 10/26/19 10/26/19 06:00 06:10 06:20 Temperature Pulse Rate 104 H 104 H 107 H Pulse Rate [ From Monitor] Respiratory 39 H 38 H 37 H Rate Blood Pressure 107/69 107/69 107/69 O2 Sat by Pulse 100 100 Oximetry 10/26/19 10/26/19 10/26/19 06:30 06:40 06:50 Temperature Pulse Rate 102 H 106 H 101 H Pulse Rate [ From Monitor] Respiratory 36 H 39 H 33 H Rate Blood Pressure 107/69 107/69 107/69 O2 Sat by Pulse 100 100 100 Oximetry 10/26/19 10/26/19 10/26/19 07:00 07:10 07:20 Temperature Pulse Rate 99 H 92 H 99 H Pulse Rate [ From Monitor] Respiratory 37 H 33 H 31 H Rate Blood Pressure 109/69 109/69 109/69 O2 Sat by Pulse 100 100 100 Oximetry 10/26/19 10/26/19 10/26/19 07:30 07:40 08:00 Temperature 98.8 F Pulse Rate 100 H 96 H Pulse Rate [ From Monitor] Respiratory 37 H 33 H Rate Blood Pressure 109/69 109/69 O2 Sat by Pulse 100 100 Oximetry - General Appearance General appearance: well-developed, well-nourished, appears stated age EENT: ATNC, PERRL, mucous membranes dry Neck: no JVD Respiratory: Present: Clear to Ascultation Cardiology: regular, S1S2 Gastrointestinal: normoactive bowel sounds Integumentary: no rash, other (no edema ) Neurologic: no focal deficit, alert and oriented x3, strength 5/5, CN 3-12 in tact Psychiatric: mood/affect appropriate, cooperative - Lab 10/26/19 05:21 10/26/19 05:21 Most recent lab results Calcium 8.3 mg/dL (8.4-10.2) L 10/26/19 05:21 Phosphorus 3.00 mg/dL (2.5-4.5) 10/26/19 05:21 Magnesium 2.50 mg/dL (1.7-2.3) H 10/26/19 05:21 Medications & Allergies - Medications Allergies/Adverse Reactions: Allergies No Known Allergies Allergy (Verified 10/25/19 09:17) Home Medications: Home Medications Medication Instructions Recorded Confirmed Last Taken Type Citalopram [celeXA] 10 mg PO QDAY 08/27/15 08/27/15 08/24/15 History Folic Acid [Folvite] 1 mg PO QDAY #30 tablet 09/08/15 Unknown Rx Thiamine [Vitamin B-1] 100 mg PO QDAY #30 tablet 09/08/15 Unknown Rx Triamter/Hctz 37.5-25 mg 1 tab PO QDAY #30 tablet 09/08/15 Unknown Rx [Maxzide-25] Cyclobenzaprine [Flexeril] 10 mg PO TID PRN #14 tablet 08/22/16 Unknown Rx HYDROcodone/APAP 5-325 [[place] 1 - 2 each PO Q6HR PRN #14 tablet 08/22/16 Unknown Rx 5/325] Ibuprofen [Motrin 800 MG tab] 800 mg PO Q8HR PRN #20 tablet 08/22/16 Unknown Rx Active Medications: Generic Name Dose Route Start Last Admin Trade Name Freq PRN Reason Stop Dose Admin Acetaminophen 650 mg 10/25/19 11:55 Tylenol PO Q4H PRN Pain MILD(1-3)/Fever >100.5/SANTANA Citalopram Hydrobromide 10 mg 10/26/19 10:00 10/26/19 10:29 Celexa PO Not Given QDAY [facility] Folic Acid 1 mg 10/26/19 10:00 10/26/19 10:30 Folvite PO Not Given QDAY [facility] Sodium Bicarbonate 150 meq/ 1,150 mls @ 75 mls/hr 10/25/19 12:30 10/25/19 21:45 Dextrose IV 75 mls/hr DIRECT [facility] Administration Dextrose 1,000 mls @ 150 mls/hr 10/26/19 10:00 10/26/19 09:19 D5w IV 150 mls/hr DIRECT B[facility] Administration Potassium Chloride 40 meq/ 520 mls @ 125 mls/hr 10/26/19 10:00 10/26/19 10:28 Sodium Chloride IV 10/26/19 14:10 125 mls/hr DIRECT BRAX[facility] Administration Ondansetron HCl 4 mg 10/25/19 11:55 Zofran IV Q8H PRN Nausea And Vomiting Thiamine HCl 100 mg 10/26/19 10:00 10/26/19 10:28 Vitamin B-1 PO Not Given QDAY [facility]
[2019-10-26] MEDS ORDERED: VANCOMYCIN/NS 1 GM/250 ML 1 GM/250 ML BAG IV SCH (13:00)
--- NOTE | 2019-10-26 19:49 | Progress Note ---
Assessment and Plan Assessment and plan: 64f w hx of etoh abuse found stuporous and confused Imaging reviewed, chest x-ray and CT head no acute findings. Labs show severe metabolic acidosis and acute kidney failure with a BUN of 88 and creatinine of 2.4. SIRS; received empiric abx in ER, IVF, UA, Cxr neg, fup blood cx Hypothermia; now resolved, TSH within normal limits Metabolic acidosis and lactic acidosis; bicarb drip Acute metabolic encephalopathy; likely due to kidney failure, MRI brain ordered, ammonia levels within normal limits ISMAEL, uremia due to vasomotor nephropathy ; IVF, bicarb drip, CT abdomen pelvis does not show any obstruction hx of etoh?, monitor for signs of withdrawal, thiamine and folate, thrombocytopenia is likely due to alcohol abuse, platelet counts 136 Moderate malnutrition, albumin of 3.2., CK 297, dietitian consulted -Hypernatremia; hypotonic IV fluid -Dysphasia; speech therapy eval, For some unclear reason even though IV fluids were ordered for the patient namely half-normal saline at 150 cc an hour which was ordered on 10/25/2019 at noon. For some reason the nurses never hung these IV fluids, the patient has worsening dehydration at this time. This was communicated to the medical director of hospice Freida Angel, and to administration, the assured me that the patient's IV fluids to be started promptly. Fluids now changed to D5 [facility] Critical care time 35 minutes History Interval history: No fevers No vomiting No diarrhea No agitation No seizures No evidence of discomfort or pain Hospitalist Physical - Physical exam Narrative exam: General.: Appears ill HEENT: Dry mucous membranes Neck: supple Cardiac: S1-S2 heard Lungs: clear to auscultation bilaterally Abdomen: soft , nontender, nondistended, bowel sounds positive Extremities: no edema clubbing or cyanosis Skin: no rash or lesions Neurologic: Oriented to person only, confused, does not answer questions appropriately, moves all extremities. Psych: calm, and cooperative - Constitutional Vitals: Temp Pulse Resp BP Pulse Ox 97.3 F L 68 22 114/73 100 10/26/19 16:00 10/26/19 17:50 10/26/19 17:50 10/26/19 17:50 10/26/19 17:50 General appearance: Present: mild distress Results - Labs CBC & Chem 7: 10/26/19 05:21 10/26/19 05:21 Labs: Laboratory Last Values WBC 19.7 K/mm3 (4.5-11.0) H 10/26/19 05:21 RBC 3.40 M/mm3 (3.65-5.03) L 10/26/19 05:21 Hgb 11.4 gm/dl (10.1-14.3) 10/26/19 05:21 Hct 34.6 % (30.3-42.9) D 10/26/19 05:21 MCV 102 fl (79-97) H 10/26/19 05:21 MCH 34 pg (28-32) H 10/26/19 05:21 MCHC 33 % (30-34) 10/26/19 05:21 RDW 19.4 % (13.2-15.2) H 10/26/19 05:21 Plt Count 131 K/mm3 (140-440) L 10/26/19 05:21 Add Manual Diff Complete 10/26/19 05:21 Total Counted 100 10/26/19 05:21 Seg Neutrophils % Pipe Fitter 10/26/19 05:21 Seg Neuts % (Manual) 92.0 % (40.0-70.0) H 10/26/19 05:21 Band Neutrophils % 0 % 10/26/19 05:21 Lymphocytes % (Manual) 3.0 % (13.4-35.0) L 10/26/19 05:21 Reactive Lymphs % (Man) 0 % 10/26/19 05:21 Monocytes % (Manual) 4.0 % (0.0-7.3) 10/26/19 05:21 Eosinophils % (Manual) 0 % (0.0-4.3) 10/26/19 05:21 Basophils % (Manual) 0 % (0.0-1.8) 10/26/19 05:21 Metamyelocytes % 1.0 % 10/26/19 05:21 Myelocytes % 0 % 10/26/19 05:21 Promyelocytes % 0 % 10/26/19 05:21 Blast Cells % 0 % 10/26/19 05:21 Nucleated RBC % Not Reportable 10/26/19 05:21 Seg Neutrophils # Man 18.1 K/mm3 (1.8-7.7) H 10/26/19 05:21 Band Neutrophils # 0.0 K/mm3 10/26/19 05:21 Lymphocytes # (Manual) 0.6 K/mm3 (1.2-5.4) L 10/26/19 05:21 Abs React Lymphs (Man) 0.0 K/mm3 10/26/19 05:21 Monocytes # (Manual) 0.8 K/mm3 (0.0-0.8) 10/26/19 05:21 Eosinophils # (Manual) 0.0 K/mm3 (0.0-0.4) 10/26/19 05:21 Basophils # (Manual) 0.0 K/mm3 (0.0-0.1) 10/26/19 05:21 Metamyelocytes # 0.2 K/mm3 10/26/19 05:21 Myelocytes # 0.0 K/mm3 10/26/19 05:21 Promyelocytes # 0.0 K/mm3 10/26/19 05:21 Blast Cells # 0.0 K/mm3 10/26/19 05:21 WBC Morphology Not Reportable 10/26/19 05:21 Hypersegmented Neuts Not Reportable 10/26/19 05:21 Hyposegmented Neuts Not Reportable 10/26/19 05:21 Hypogranular Neuts Not Reportable 10/26/19 05:21 Smudge Cells Not Reportable 10/26/19 05:21 Toxic Granulation Not Reportable 10/26/19 05:21 Toxic Vacuolation Not Reportable 10/26/19 05:21 Dohle Bodies Not Reportable 10/26/19 05:21 Pelger-Huet Anomaly Not Reportable 10/26/19 05:21 Boogie Rods Not Reportable 10/26/19 05:21 Platelet Estimate Consistent w auto 10/26/19 05:21 Clumped Platelets Not Reportable 10/26/19 05:21 Plt Clumps, EDTA Not Reportable 10/26/19 05:21 Large Platelets Not Reportable 10/26/19 05:21 Giant Platelets Not Reportable 10/26/19 05:21 Platelet Satelliting Not Reportable 10/26/19 05:21 Plt Morphology Comment Not Reportable 10/26/19 05:21 RBC Morphology Not Reportable 10/26/19 05:21 Dimorphic RBCs Not Reportable 10/26/19 05:21 Polychromasia Not Reportable 10/26/19 05:21 Hypochromasia Not Reportable 10/26/19 05:21 Poikilocytosis Not Reportable 10/26/19 05:21 Anisocytosis Few 10/26/19 05:21 Microcytosis Rare 10/26/19 05:21 Macrocytosis Not Reportable 10/26/19 05:21 Spherocytes Not Reportable 10/26/19 05:21 Pappenheimer Bodies Not Reportable 10/26/19 05:21 Sickle Cells Not Reportable 10/26/19 05:21 Target Cells Not Reportable 10/26/19 05:21 Tear Drop Cells Not Reportable 10/26/19 05:21 Ovalocytes Not Reportable 10/26/19 05:21 Helmet Cells Not Reportable 10/26/19 05:21 Walker-Blackgum Bodies Not Reportable 10/26/19 05:21 [place] Rings Not Reportable 10/26/19 05:21 [place] Cells Not Reportable 10/26/19 05:21 Bite Cells Not Reportable 10/26/19 05:21 Crenated Cell Not Reportable 10/26/19 05:21 Elliptocytes Rare 10/26/19 05:21 Acanthocytes (Spur) Not Reportable 10/26/19 05:21 Rouleaux Not Reportable 10/26/19 05:21 Hemoglobin C Crystals Not Reportable 10/26/19 05:21 Schistocytes Not Reportable 10/26/19 05:21 Malaria parasites Not Reportable 10/26/19 05:21 Albert Bodies Not Reportable 10/26/19 05:21 Hem Pathologist Commnt No 10/26/19 05:21 PT 14.0 Sec. (12.2-14.9) 10/25/19 09:15 INR 1.07 (0.87-1.13) 10/25/19 09:15 APTT 30.4 Sec. (24.2-36.6) 10/25/19 09:15 VBG pH 7.370 (7.320-7.420) 10/25/19 09:15 Sodium 150 mmol/L (137-145) H 10/26/19 05:21 Potassium 3.1 mmol/L (3.6-5.0) L D 10/26/19 05:21 Chloride 113.2 mmol/L (98-107) H 10/26/19 05:21 Carbon Dioxide 17 mmol/L (22-30) L 10/26/19 05:21 Anion Gap 23 mmol/L 10/26/19 05:21 BUN 82 mg/dL (7-17) H 10/26/19 05:21 Creatinine 2.0 mg/dL (0.7-1.2) H 10/26/19 05:21 Estimated GFR 30 ml/min 10/26/19 05:21 BUN/Creatinine Ratio 41 % 10/26/19 05:21 Glucose 133 mg/dL (65-100) H 10/26/19 05:21 Lactic Acid 1.60 mmol/L (0.7-2.0) 10/25/19 16:02 Calcium 8.3 mg/dL (8.4-10.2) L 10/26/19 05:21 Phosphorus 3.00 mg/dL (2.5-4.5) 10/26/19 05:21 Magnesium 2.50 mg/dL (1.7-2.3) H 10/26/19 05:21 Total Bilirubin 0.40 mg/dL (0.1-1.2) 10/25/19 09:15 Direct Bilirubin < 0.2 mg/dL (0-0.2) 10/25/19 09:15 AST 98 units/L (5-40) H 10/25/19 09:15 ALT 85 units/L (7-56) H 10/25/19 09:15 Alkaline Phosphatase 121 units/L (35-129) 10/25/19 09:15 Ammonia 33.0 umol/L (25-60) 10/26/19 11:20 Total Creatine Kinase 297 units/L (30-135) H 10/25/19 09:15 CK-MB (CK-2) 5.5 ng/mL (0.0-4.0) H 10/25/19 09:15 CK-MB (CK-2) Rel Index 1.8 (0-4) 10/25/19 09:15 Troponin T < 0.010 ng/mL (0.00-0.029) 10/25/19 09:15 NT-Pro-B Natriuret Pep 806.3 pg/mL (0-900) 10/25/19 09:15 Total Protein 6.9 g/dL (6.3-8.2) 10/25/19 09:15 Albumin 3.2 g/dL (3.9-5) L 10/25/19 09:15 Albumin/Globulin Ratio 0.9 % 10/25/19 09:15 Lipase 194 units/L (13-60) H 10/25/19 09:15 TSH 3.640 mlU/mL (0.270-4.200) 10/25/19 13:30 Free T4 0.98 ng/dL (0.76-1.46) 10/25/19 13:30 Thyroxine (T4) 5.8 ug/dL (4.0-12.0) 10/25/19 13:30 Urine Color Meagan (Yellow) 10/25/19 09:03 Urine Turbidity Clear (Clear) 10/25/19 09:03 Urine pH 5.0 (5.0-7.0) 10/25/19 09:03 Ur Specific [place] 1.017 (1.003-1.030) 10/25/19 09:03 Urine Protein <15 mg/dl mg/dL (Negative) 10/25/19 09:03 Urine Glucose (UA) Neg mg/dL (Negative) 10/25/19 09:03 Urine Ketones Neg mg/dL (Negative) 10/25/19 09:03 Urine Blood Neg (Negative) 10/25/19 09:03 Urine Nitrite Neg (Negative) 10/25/19 09:03 Urine Bilirubin Neg (Negative) 10/25/19 09:03 Urine Urobilinogen < 2.0 mg/dL (<2.0) 10/25/19 09:03 Ur Leukocyte Esterase Neg (Negative) 10/25/19 09:03 Urine WBC (Auto) 3.0 /HPF (0.0-6.0) 10/25/19 09:03 Urine RBC (Auto) 1.0 /HPF (0.0-6.0) 10/25/19 09:03 Urine Mucus Few /HPF 10/25/19 09:03 Active Medications - Current Medications Current Medications: Generic Name Dose Route Start Last Admin Trade Name Freq PRN Reason Stop Dose Admin Acetaminophen 650 mg 10/25/19 11:55 Tylenol PO Q4H PRN Pain MILD(1-3)/Fever >100.5/SANTANA Citalopram Hydrobromide 10 mg 10/26/19 10:00 10/26/19 10:29 Celexa PO Not Given QDAY [facility] Enoxaparin Sodium 40 mg 10/26/19 22:00 Enoxaparin SUB-Q QDAY@2200 B[facility] Folic Acid 1 mg 10/26/19 10:00 10/26/19 10:30 Folvite PO Not Given QDAY [facility] Sodium Bicarbonate 150 meq/ 1,150 mls @ 75 mls/hr 10/25/19 12:30 10/25/19 21:45 Dextrose IV 75 mls/hr DIRECT BRAXTON Administration Dextrose 1,000 mls @ 150 mls/hr 10/26/19 10:00 10/26/19 09:19 D5w IV 150 mls/hr DIRECT BRAXTON Administration Folic Acid 1 mg/ Sodium 50.2 mls @ 200.8 mls/hr 10/26/19 14:00 Chloride IV QDAY [facility] Thiamine HCl 100 mg/ Sodium 51 mls @ 100 mls/hr 10/26/19 14:00 Chloride IV QDAY [facility] Ondansetron HCl 4 mg 10/25/19 11:55 Zofran IV Q8H PRN Nausea And Vomiting Thiamine HCl 100 mg 10/26/19 10:00 10/26/19 10:28 Vitamin B-1 PO Not Given QDAY [facility] Nutrition/Malnutrition Assess - Dietary Evaluation Nutrition/Malnutrition Findings: Nutrition Notes Start: 10/26/19 13:22 Freq: Status: Active Protocol: Document 10/26/19 13:23 LM (Rec: 10/26/19 13:48 LM [id number]) Nutrition Notes Need for Assessment generated from: MD Order,MST Initial or Follow up Assessment Current Diagnosis Acute Kidney Injury,Sepsis, Hypertension Other Pertinent Diagnosis SIRS, hypothermia, encephalopathy, ETOH dependence Current Diet Regular diet Labs/Tests K 3.1 Na 150 BUN 82 Cr 2.0 Mg 2.5 Pertinent Medications KCl at 125 ml/hr D5w at 150 ml/hr Height 5 ft 6 in Weight 74.843 kg [place] Body Weight (kg) 59.09 BMI 26.6 Weight change and time frame 17% wt loss in 3 years ( per chart from 2016) Weight Status Appropriate Subjective/Other Information MD consult for malnutrition. Pt lethargic and difficult to understand at time of visit. Unable to get accurate diet and weight history from pt. Per chart from 2105, pt weighed 89.7 kg. Lunch tray untouched at time of visit. Noticed pt to be missing teeth . Pt denied difficulty chewing or swallowing. Burn Absent Trauma Absent Current % PO Negligible Minimum of two criteria No Reduced Real Estate Assistant Strength Measurably Reduced (severe) #1 Nutrition Diagnosis Inadequate oral intake Etiology encephalopathy As Evidenced by Signs and Symptoms pt not eating lunch Is patient on ventilator? No Is Patient Ambulatory and/or Out of Bed No REE-([facility]-confined to bed) [phone] Calculation Used for Recommendations [facility] Additional Notes Protein: 75-90g (1-1.2g/kg) Fluid: 1 ml/kcal Nutrition Intervention Change Diet Order: Continue current Goal #1 Meet at least 75% of energy and protein needs Anticipated Discharge Needs: Cardiac Follow-Up By: 10/28/19 Additional Comments F/U for intakes, full assessment
[2019-10-26] MEDS: THIAMINE 100 MG in SODIUM CHLORIDE 0.9% 50 ML IV SCH (20:48)
[2019-10-26] MEDS: FOLIC ACID 1 MG in SODIUM CHLORIDE 0.9% 50 ML IV SCH (20:55)
[2019-10-26] MEDS ORDERED: ENOXAPARIN 40 MG/0.4 ML INJ SUB-Q SCH (22:00)
[2019-10-26] MEDS ORDERED: ENOXAPARIN 30 MG/0.3 ML INJ SUB-Q SCH (22:00)
[2019-10-27 05:52] LABS: BUN/Creatinine Ratio 48; Blood Urea Nitrogen 53 mg/dL (7-17); Calcium 8.2 mg/dL (8.4-10.2); Hemolysis Index 10
[2019-10-27] MEDS: DEXTROSE 5% IN WATER 1,000 ML IV SCH (06:03)
[2019-10-27] MEDS ORDERED: ENOXAPARIN 30 MG/0.3 ML INJ SUB-Q SCH (07:50)
[2019-10-27 08:29] LABS: Hematocrit 32.1 % (30.3-42.9); Hemoglobin 10.6 gm/dl (10.1-14.3); Mean Corpuscular HGB Conc 33 % (30-34); Mean Corpuscular Volume 103 fl (79-97); Platelet Count 105 K/mm3 (140-440); Red Blood Count 3.13 M/mm3 (3.65-5.03); Red Cell Distribution Width 19.3 % (13.2-15.2)
[2019-10-27] MEDS ORDERED: DEXTROSE 5% IN WATER 1,000 ML with POTASSIUM CHLORIDE 40 MEQ IV SCH (09:00)
[2019-10-27 09:22] LABS: Basophils % (Manual) 0 % (0.0-1.8); Eosinophils % (Manual) 0 % (0.0-4.3); Total Cells Counted 100
[2019-10-27 09:23] LABS: Anisocytosis Few; Platelet Estimate Consistent w Auto
[2019-10-27] MEDS: FOLIC ACID 1 MG in SODIUM CHLORIDE 0.9% 50 ML IV SCH (10:05)
[2019-10-27] MEDS: THIAMINE 100 MG TAB PO SCH (10:05)
[2019-10-27] MEDS: CITALOPRAM 10 MG TAB PO SCH (10:06)
[2019-10-27] MEDS: FOLIC ACID 1 MG TAB PO SCH (10:06)
[2019-10-27] MEDS: THIAMINE 100 MG in SODIUM CHLORIDE 0.9% 50 ML IV SCH (10:34)
--- NOTE | 2019-10-27 12:14 | Progress Note ---
Assessment and Plan - Patient Problems (1) Acute kidney injury Current Visit: Yes Status: Acute Plan to address problem: Elevated BUN/creatinine ratio suggests prerenal azotemia, improving with IVF. Continue empiric antibiotics. Follow-up electrolytes and renal function. Avoid potential nephrotoxins. (2) Systemic inflammatory response syndrome Current Visit: Yes Status: Acute Plan to address problem: s/p hypothermia, leukocytosis and lactic acidosis. Presumed sepsis source unclear. Cultures obtained. Continue empiric antibiotics. (3) Hypernatremia Current Visit: Yes Status: Acute Plan to address problem: Improving on D5 (4) Encephalopathy Current Visit: Yes Status: Acute Plan to address problem: Toxic/metabolic encephalopathy. Continue antibiotics. Follow-up electrolytes and renal function. (5) Hypertension Current Visit: Yes Status: Acute Plan to address problem: Blood pressure is normal. Continue to monitor (6) History of nephrolithiasis Current Visit: Yes Status: Acute Plan to address problem: No stones on CT scan. (7) History of alcohol abuse Current Visit: Yes Status: Acute Subjective Date of service: 10/27/19 Principal diagnosis: ISMAEL Interval history: Pt awake, more alert, oriented to person, place, but not time. Objective - Vital Signs Vital signs: Vital Signs - 12hr 10/27/19 10/27/19 10/27/19 00:20 00:30 00:40 Temperature Pulse Rate 65 63 61 Pulse Rate [ From Monitor] Respiratory 16 16 16 Rate Blood Pressure 109/69 109/69 109/69 O2 Sat by Pulse 99 99 99 Oximetry 10/27/19 10/27/19 10/27/19 00:50 01:00 01:10 Temperature Pulse Rate 59 L 63 70 Pulse Rate [ From Monitor] Respiratory 17 17 13 Rate Blood Pressure 109/69 109/69 97/55 O2 Sat by Pulse 100 100 100 Oximetry 10/27/19 10/27/19 10/27/19 01:20 01:30 01:40 Temperature Pulse Rate 76 77 69 Pulse Rate [ From Monitor] Respiratory 19 14 14 Rate Blood Pressure 97/55 97/55 O2 Sat by Pulse 100 100 100 Oximetry 10/27/19 10/27/19 10/27/19 01:50 02:00 02:10 Temperature Pulse Rate 68 68 67 Pulse Rate [ From Monitor] Respiratory 14 11 L 15 Rate Blood Pressure 97/55 97/55 109/58 O2 Sat by Pulse 100 100 99 Oximetry 10/27/19 10/27/19 10/27/19 02:20 02:30 02:40 Temperature Pulse Rate 65 57 L 65 Pulse Rate [ From Monitor] Respiratory 14 13 10 L Rate Blood Pressure 109/58 109/58 109/58 O2 Sat by Pulse 100 100 100 Oximetry 10/27/19 10/27/19 10/27/19 02:50 03:00 03:10 Temperature Pulse Rate 66 65 69 Pulse Rate [ From Monitor] Respiratory 12 16 14 Rate Blood Pressure 109/58 105/61 105/61 O2 Sat by Pulse 100 100 100 Oximetry 10/27/19 10/27/19 10/27/19 03:20 03:30 03:40 Temperature Pulse Rate 72 59 L 67 Pulse Rate [ From Monitor] Respiratory 10 L 14 12 Rate Blood Pressure 105/61 105/61 105/61 O2 Sat by Pulse 100 100 100 Oximetry 10/27/19 10/27/19 10/27/19 03:50 04:00 04:10 Temperature 97.5 F L Pulse Rate 70 67 69 Pulse Rate [ 68 From Monitor] Respiratory 12 12 14 Rate Blood Pressure 105/61 110/63 110/63 O2 Sat by Pulse 100 100 100 Oximetry 10/27/19 10/27/19 10/27/19 04:20 04:30 04:40 Temperature Pulse Rate 70 67 70 Pulse Rate [ From Monitor] Respiratory 13 9 L 11 L Rate Blood Pressure 110/63 110/63 110/63 O2 Sat by Pulse 100 100 100 Oximetry 10/27/19 10/27/19 10/27/19 04:50 05:00 05:10 Temperature Pulse Rate 67 63 69 Pulse Rate [ From Monitor] Respiratory 11 L 12 9 L Rate Blood Pressure 110/63 105/63 105/63 O2 Sat by Pulse 100 100 100 Oximetry 10/27/19 10/27/19 10/27/19 05:20 05:30 05:40 Temperature Pulse Rate 67 66 71 Pulse Rate [ From Monitor] Respiratory 14 12 8 L Rate Blood Pressure 105/63 105/63 105/63 O2 Sat by Pulse 100 100 100 Oximetry 10/27/19 10/27/19 10/27/19 05:50 06:00 06:10 Temperature Pulse Rate 68 64 70 Pulse Rate [ From Monitor] Respiratory 11 L 10 L 13 Rate Blood Pressure 105/63 105/63 112/58 O2 Sat by Pulse 100 100 100 Oximetry 10/27/19 10/27/19 10/27/19 06:20 06:30 06:40 Temperature Pulse Rate 71 74 70 Pulse Rate [ From Monitor] Respiratory 11 L 11 L 15 Rate Blood Pressure 112/58 112/58 112/58 O2 Sat by Pulse 100 100 100 Oximetry 10/27/19 10/27/19 10/27/19 06:50 07:00 07:10 Temperature Pulse Rate 65 65 68 Pulse Rate [ From Monitor] Respiratory 11 L 12 8 L Rate Blood Pressure 112/58 109/56 109/56 O2 Sat by Pulse 100 99 100 Oximetry 10/27/19 10/27/19 10/27/19 07:20 07:30 07:40 Temperature Pulse Rate 68 64 73 Pulse Rate [ From Monitor] Respiratory 8 L 13 16 Rate Blood Pressure 109/56 109/56 109/56 O2 Sat by Pulse 100 100 100 Oximetry 10/27/19 08:00 Temperature 97.7 F Pulse Rate Pulse Rate [ From Monitor] Respiratory Rate Blood Pressure O2 Sat by Pulse Oximetry - General Appearance General appearance: well-developed, appears stated age EENT: ATNC, PERRL, mucous membranes dry Neck: no JVD Respiratory: Present: Clear to Ascultation Cardiology: regular, S1S2 Gastrointestinal: normoactive bowel sounds Integumentary: no rash, other (no edema ) Neurologic: no focal deficit, alert and oriented x3, strength 5/5, CN 3-12 intact Psychiatric: mood/affect appropriate, cooperative - Lab 10/27/19 07:59 10/27/19 04:27 Most recent lab results Calcium 8.2 mg/dL (8.4-10.2) L 10/27/19 04:27 Phosphorus 2.20 mg/dL (2.5-4.5) L D 10/27/19 07:59 Magnesium 2.30 mg/dL (1.7-2.3) 10/27/19 07:59 Medications & Allergies - Medications Allergies/Adverse Reactions: Allergies No Known Allergies Allergy (Verified 10/25/19 09:17) Home Medications: Home Medications Medication Instructions Recorded Confirmed Last Taken Type Citalopram [celeXA] 10 mg PO QDAY 08/27/15 08/27/15 08/24/15 History Folic Acid [Folvite] 1 mg PO QDAY #30 tablet 09/08/15 Unknown Rx Thiamine [Vitamin B-1] 100 mg PO QDAY #30 tablet 09/08/15 Unknown Rx Triamter/Hctz 37.5-25 mg 1 tab PO QDAY #30 tablet 09/08/15 Unknown Rx [Maxzide-25] Cyclobenzaprine [Flexeril] 10 mg PO TID PRN #14 tablet 08/22/16 Unknown Rx HYDROcodone/APAP 5-325 [[place] 1 - 2 each PO Q6HR PRN #14 tablet 08/22/16 Unk nown Rx 5/325] Ibuprofen [Motrin 800 MG tab] 800 mg PO Q8HR PRN #20 tablet 08/22/16 Unknown Rx Active Medications: Generic Name Dose Route Start Last Admin Trade Name Freq PRN Reason Stop Dose Admin Acetaminophen 650 mg 10/25/19 11:55 Tylenol PO Q4H PRN Pain MILD(1-3)/Fever >100.5/SANTANA Citalopram Hydrobromide 10 mg 10/26/19 10:00 10/27/19 10:06 Celexa PO 10 mg QDAY [facility] Administration Enoxaparin Sodium 40 mg 10/27/19 07:50 Enoxaparin SUB-Q QHS [facility] Sodium Bicarbonate 150 meq/ 1,150 mls @ 75 mls/hr 10/25/19 12:30 10/25/19 21:45 Dextrose IV 75 mls/hr DIRECT BRAXTON Administration Folic Acid 1 mg/ Sodium 50.2 mls @ 200.8 mls/hr 10/26/19 14:00 10/27/19 10:05 Chloride IV 200.8 mls/hr QDAY [facility] Administration Thiamine HCl 100 mg/ Sodium 51 mls @ 100 mls/hr 10/26/19 14:00 10/27/19 10:34 Chloride IV 100 mls/hr QDAY [facility] Administration Potassium Chloride 40 meq/ 1,020 mls @ 150 mls/hr 10/27/19 09:00 Dextrose IV DIRECT B[facility]XTON Potassium Phosphate 15 mmol/ 255 mls @ 63 mls/hr 10/27/19 11:43 Sodium Chloride IV 10/27/19 15:45 ONCE ONE Ondansetron HCl 4 mg 10/25/19 11:55 Zofran IV Q8H PRN Nausea And Vomiting
--- NOTE | 2019-10-27 13:57 | Magnetic Resonance Report ---
MRI BRAIN 10/27/2019 INDICATION / CLINICAL INFORMATION: aphasia, dysphagia. TECHNIQUE: Multiplanar, multisequence MR images of the brain were obtained. COMPARISON: CT brain 10/25/2019 FINDINGS: BRAIN / INTRACRANIAL CONTENTS: Unenhanced MR images of the brain demonstrate no evidence of acute int racranial abnormality. Ventricles and sulci are normal in size and shape for a patient of this age. A few scattered periventricular white matter T2 weighted hyperintensities are present bilaterally, wi th additional foci of T2 weighted signal change present in the cerebellar hemispheres. CT demonstrated prominent basal ganglia calcifications. The correlate for this finding is noted on th is MR, with decreased T2-weighted signal and slightly increased T1 weighted signal present in the renee bus pallidus right and dorsal thalamus. This corresponds to the area of dystrophic calcification. EXTRACRANIAL: Unremarkable CRANIOCERVICAL JUNCTION: No significant abnormality. VASCULAR FLOW-VOIDS: No significant abnormality. IMPRESSION: No acute abnormality. Chronic white matter signal change. Correlate of basal ganglia and thalamic calcifications noted. Signer Name: Jose R Black MD Signed: 10/27/2019 1:53 PM Workstation Name: [id number]
[2019-10-27] MEDS ORDERED: POTASSIUM PHOSPHATE 15 MMOL in SODIUM CHLORIDE 0.9% 250ML 250 ML IV ONE (14:00)
--- NOTE | 2019-10-27 16:53 | Progress Note ---
Assessment and Plan Assessment and plan: Patient is a 64 yo woman with a history of ETOH abuse, Nephrolithiasis and hypertension who presented to [facility] ED for AMS. She was found stuporous in her hotel room by a friend. In the ER patient was hypothermic, confused and appeared very dehydrated. Temp 93.4F, WBC 19.7, plt 131, Na 150, K 3.1, BUN 82, Cr 2.0 Imaging reviewed, chest x-ray and CT head no acute findings. Labs show severe metabolic acidosis and acute kidney failure with a BUN of 88 and creatinine of 2.4. Brain MRI IMPRESSION: No acute abnormality. Chronic white matter signal change. Correlate of basal ganglia and thalamic calcifications noted. SIRS; received empiric abx in ER, IVF, UA, Cxr neg, fup blood cx Hypothermia; now resolved, TSH within normal limits Hypokalemia: replete, monitor closely Metabolic acidosis and lactic acidosis; bicarb drip Acute metabolic encephalopathy; likely due to kidney failure, MRI brain ordered, ammonia levels within normal limits ISMAEL, uremia due to vasomotor nephropathy ; IVF, bicarb drip, CT abdomen pelvis does not show any obstruction hx of etoh?, monitor for signs of withdrawal, thiamine and folate, thrombocytopenia is likely due to alcohol abuse, platelet counts 136 Moderate malnutrition, albumin of 3.2., CK 297, dietitian consulted Hypernatremia; hypotonic IV fluid Dysphasia; speech therapy eval, History Interval history: Patient was seen and examined. Follow-up on current diagnosis. Overnight uneventful as no events directly reported to me. Patient denies any chest pain, shortness breath, nausea/vomiting or severe headaches. Imaging, nursing note, chart, labs and old chart reviewed. Discussed with patient. Hospitalist Physical - Physical exam Narrative exam: Gen: unkempt, WDWN, NAD, Awake, Alert, Orientated HEENT: NCAT, alopecia, EOMI, PERRL, OP Clear Neck: supple, no adenopathy, no thyromegaly, no JVD CVS/Heart: RRR, normal S1S2, pulses present bilaterally Chest/Lungs: CTA B, Symmetrical chest expansion, good air entry bilaterally GI/Abdomen: soft, NTND, good bowel sounds, no guarding or rebound /Bladder: no suprapubic tenderness, no CVA or paraspinal tenderness Extermity/Skin: no c/c/e, no obvious rash MSK: FROM x 4 Neuro: CN 2-12 grossly intact, no new focal deficits Psych: calm - Constitutional Vitals: Temp Pulse Resp BP Pulse Ox 97.7 F 73 16 109/56 100 10/27/19 08:00 10/27/19 07:40 10/27/19 07:40 10/27/19 07:40 10/27/19 07:40 General appearance: Absent: mild distress Results - Labs CBC & Chem 7: 10/27/19 07:59 10/27/19 04:27 Labs: Laboratory Last Values WBC 20.6 K/mm3 (4.5-11.0) H 10/27/19 07:59 RBC 3.13 M/mm3 (3.65-5.03) L 10/27/19 07:59 Hgb 10.6 gm/dl (10.1-14.3) 10/27/19 07:59 Hct 32.1 % (30.3-42.9) 10/27/19 07:59 MCV 103 fl (79-97) H 10/27/19 07:59 MCH 34 pg (28-32) H 10/27/19 07:59 MCHC 33 % (30-34) 10/27/19 07:59 RDW 19.3 % (13.2-15.2) H 10/27/19 07:59 Plt Count 105 K/mm3 (140-440) L 10/27/19 07:59 Add Manual Diff Complete 10/27/19 07:59 Total Counted 100 10/27/19 07:59 Seg Neutrophils % Shrimper 10/26/19 05:21 Seg Neuts % (Manual) 89.0 % (40.0-70.0) H 10/27/19 07:59 Band Neutrophils % 0 % 10/27/19 07:59 Lymphocytes % (Manual) 6.0 % (13.4-35.0) L 10/27/19 07:59 Reactive Lymphs % (Man) 0 % 10/27/19 07:59 Monocytes % (Manual) 5.0 % (0.0-7.3) 10/27/19 07:59 Eosinophils % (Manual) 0 % (0.0-4.3) 10/27/19 07:59 Basophils % (Manual) 0 % (0.0-1.8) 10/27/19 07:59 Metamyelocytes % 0 % 10/27/19 07:59 Myelocytes % 0 % 10/27/19 07:59 Promyelocytes % 0 % 10/27/19 07:59 Blast Cells % 0 % 10/27/19 07:59 Nucleated RBC % Not Reportable 10/27/19 07:59 Seg Neutrophils # Man 18.3 K/mm3 (1.8-7.7) H 10/27/19 07:59 Band Neutrophils # 0.0 K/mm3 10/27/19 07:59 Lymphocytes # (Manual) 1.2 K/mm3 (1.2-5.4) 10/27/19 07:59 Abs React Lymphs (Man) 0.0 K/mm3 10/27/19 07:59 Monocytes # (Manual) 1.0 K/mm3 (0.0-0.8) H 10/27/19 07:59 Eosinophils # (Manual) 0.0 K/mm3 (0.0-0.4) 10/27/19 07:59 Basophils # (Manual) 0.0 K/mm3 (0.0-0.1) 10/27/19 07:59 Metamyelocytes # 0.0 K/mm3 10/27/19 07:59 Myelocytes # 0.0 K/mm3 10/27/19 07:59 Promyelocytes # 0.0 K/mm3 10/27/19 07:59 Blast Cells # 0.0 K/mm3 10/27/19 07:59 WBC Morphology Not Reportable 10/27/19 07:59 Hypersegmented Neuts Not Reportable 10/27/19 07:59 Hyposegmented Neuts Not Reportable 10/27/19 07:59 Hypogranular Neuts Not Reportable 10/27/19 07:59 Smudge Cells Not Reportable 10/27/19 07:59 Toxic Granulation Not Reportable 10/27/19 07:59 Toxic Vacuolation Not Reportable 10/27/19 07:59 Dohle Bodies Not Reportable 10/27/19 07:59 Pelger-Huet Anomaly Not Reportable 10/27/19 07:59 Boogie Rods Not Reportable 10/27/19 07:59 Platelet Estimate Consistent w auto 10/27/19 07:59 Clumped Platelets Not Reportable 10/27/19 07:59 Plt Clumps, EDTA Not Reportable 10/27/19 07:59 Large Platelets Not Reportable 10/27/19 07:59 Giant Platelets Not Reportable 10/27/19 07:59 Platelet Satelliting Not Reportable 10/27/19 07:59 Plt Morphology Comment Not Reportable 10/27/19 07:59 RBC Morphology Not Reportable 10/27/19 07:59 Dimorphic RBCs Not Reportable 10/27/19 07:59 Polychromasia Not Reportable 10/27/19 07:59 Hypochromasia Not Reportable 10/27/19 07:59 Poikilocytosis Not Reportable 10/27/19 07:59 Anisocytosis Few 10/27/19 07:59 Microcytosis Rare 10/27/19 07:59 Macrocytosis Not Reportable 10/27/19 07:59 Spherocytes Not Reportable 10/27/19 07:59 Pappenheimer Bodies Not Reportable 10/27/19 07:59 Sickle Cells Not Reportable 10/27/19 07:59 Target Cells Not Reportable 10/27/19 07:59 Tear Drop Cells Not Reportable 10/27/19 07:59 Ovalocytes Not Reportable 10/27/19 07:59 Helmet Cells Not Reportable 10/27/19 07:59 Walker-Reno Bodies Not Reportable 10/27/19 07:59 Concord Rings Not Reportable 10/27/19 07:59 Atlantic Cells Not Reportable 10/27/19 07:59 Bite Cells Not Reportable 10/27/19 07:59 Crenated Cell Not Reportable 10/27/19 07:59 Elliptocytes Rare 10/27/19 07:59 Acanthocytes (Spur) Not Reportable 10/27/19 07:59 Rouleaux Not Reportable 10/27/19 07:59 Hemoglobin C Crystals Not Reportable 10/27/19 07:59 Schistocytes Not Reportable 10/27/19 07:59 Malaria parasites Not Reportable 10/27/19 07:59 Albert Bodies Not Reportable 10/27/19 07:59 Hem Pathologist Commnt No 10/27/19 07:59 PT 14.0 Sec. (12.2-14.9) 10/25/19 09:15 INR 1.07 (0.87-1.13) 10/25/19 09:15 APTT 30.4 Sec. (24.2-36.6) 10/25/19 09:15 VBG pH 7.370 (7.320-7.420) 10/25/19 09:15 Sodium 148 mmol/L (137-145) H 10/27/19 04:27 Potassium 3.1 mmol/L (3.6-5.0) L 10/27/19 04:27 Chloride 111.1 mmol/L (98-107) H 10/27/19 04:27 Carbon Dioxide 22 mmol/L (22-30) 10/27/19 04:27 Anion Gap 18 mmol/L 10/27/19 04:27 BUN 53 mg/dL (7-17) H 10/27/19 04:27 Creatinine 1.1 mg/dL (0.7-1.2) 10/27/19 04:27 Estimated GFR > 60 ml/min 10/27/19 04:27 BUN/Creatinine Ratio 48 % 10/27/19 04:27 Glucose 112 mg/dL (65-100) H 10/27/19 04:27 Lactic Acid 1.60 mmol/L (0.7-2.0) 10/25/19 16:02 Calcium 8.2 mg/dL (8.4-10.2) L 10/27/19 04:27 Phosphorus 2.20 mg/dL (2.5-4.5) L D 10/27/19 07:59 Magnesium 2.30 mg/dL (1.7-2.3) 10/27/19 07:59 Total Bilirubin 0.40 mg/dL (0.1-1.2) 10/25/19 09:15 Direct Bilirubin < 0.2 mg/dL (0-0.2) 10/25/19 09:15 AST 98 units/L (5-40) H 10/25/19 09:15 ALT 85 units/L (7-56) H 10/25/19 09:15 Alkaline Phosphatase 121 units/L (35-129) 10/25/19 09:15 Ammonia 33.0 umol/L (25-60) 10/26/19 11:20 Total Creatine Kinase 297 units/L (30-135) H 10/25/19 09:15 CK-MB (CK-2) 5.5 ng/mL (0.0-4.0) H 10/25/19 09:15 CK-MB (CK-2) Rel Index 1.8 (0-4) 10/25/19 09:15 Troponin T < 0.010 ng/mL (0.00-0.029) 10/25/19 09:15 NT-Pro-B Natriuret Pep 806.3 pg/mL (0-900) 10/25/19 09:15 Total Protein 6.9 g/dL (6.3-8.2) 10/25/19 09:15 Albumin 3.2 g/dL (3.9-5) L 10/25/19 09:15 Albumin/Globulin Ratio 0.9 % 10/25/19 09:15 Lipase 194 units/L (13-60) H 10/25/19 09:15 TSH 3.640 mlU/mL (0.270-4.200) 10/25/19 13:30 Free T4 0.98 ng/dL (0.76-1.46) 10/25/19 13:30 Thyroxine (T4) 5.8 ug/dL (4.0-12.0) 10/25/19 13:30 Urine Color Meagan (Yellow) 10/25/19 09:03 Urine Turbidity Clear (Clear) 10/25/19 09:03 Urine pH 5.0 (5.0-7.0) 10/25/19 09:03 Ur Specific Williams 1.017 (1.003-1.030) 10/25/19 09:03 Urine Protein <15 mg/dl mg/dL (Negative) 10/25/19 09:03 Urine Glucose (UA) Neg mg/dL (Negative) 10/25/19 09:03 Urine Ketones Neg mg/dL (Negative) 10/25/19 09:03 Urine Blood Neg (Negative) 10/25/19 09:03 Urine Nitrite Neg (Negative) 10/25/19 09:03 Urine Bilirubin Neg (Negative) 10/25/19 09:03 Urine Urobilinogen < 2.0 mg/dL (<2.0) 10/25/19 09:03 Ur Leukocyte Esterase Neg (Negative) 10/25/19 09:03 Urine WBC (Auto) 3.0 /HPF (0.0-6.0) 10/25/19 09:03 Urine RBC (Auto) 1.0 /HPF (0.0-6.0) 10/25/19 09:03 Urine Mucus Few /HPF 10/25/19 09:03 Active Medications - Current Medications Current Medications: Generic Name Dose Route Start Last Admin Trade Name Freq PRN Reason Stop Dose Admin Acetaminophen 650 mg 10/25/19 11:55 Tylenol PO Q4H PRN Pain MILD(1-3)/Fever >100.5/SANTANA Citalopram Hydrobromide 10 mg 10/26/19 10:00 10/27/19 10:06 Celexa PO 10 mg QDAY BRAXTON Administration Enoxaparin Sodium 40 mg 10/27/19 07:50 Enoxaparin SUB-Q QHS BRAXTON Sodium Bicarbonate 150 meq/ 1,150 mls @ 75 mls/hr 10/25/19 12:30 10/25/19 21:45 Dextrose IV 75 mls/hr DIRECT BRAXTON Administration Folic Acid 1 mg/ Sodium 50.2 mls @ 200.8 mls/hr 10/26/19 14:00 10/27/19 10:05 Chloride IV 200.8 mls/hr QDAY BRAXTON Administration Thiamine HCl 100 mg/ Sodium 51 mls @ 100 mls/hr 10/26/19 14:00 10/27/19 10:34 Chloride IV 100 mls/hr QDAY BRAXTON Administration Potassium Chloride 40 meq/ 1,020 mls @ 150 mls/hr 10/27/19 09:00 Dextrose IV DIRECT BRAXTON Potassium Phosphate 15 mmol/ 255 mls @ 63 mls/hr 10/27/19 14:00 10/27/19 14:13 Sodium Chloride IV 10/27/19 18:02 63 mls/hr ONCE ONE Administration Ondansetron HCl 4 mg 10/25/19 11:55 Zofran IV Q8H PRN Nausea And Vomiting Nutrition/Malnutrition Assess - Dietary Evaluation Nutrition/Malnutrition Findings: Nutrition Notes Start: 10/26/19 13:22 Freq: Status: Active Protocol: Document 10/26/19 13:23 LM (Rec: 10/26/19 13:48 LM [id number]) Nutrition Notes Need for Assessment generated from: MD Order,MST Initial or Follow up Assessment Current Diagnosis Acute Kidney Injury,Sepsis, Hypertension Other Pertinent Diagnosis SIRS, hypothermia, encephalopathy, ETOH dependence Current Diet Regular diet Labs/Tests K 3.1 Na 150 BUN 82 Cr 2.0 Mg 2.5 Pertinent Medications KCl at 125 ml/hr D5w at 150 ml/hr Height 5 ft 6 in Weight 74.843 kg [place] Body Weight (kg) 59.09 BMI 26.6 Weight change and time frame 17% wt loss in 3 years ( per chart from 2015) Weight Status Appropriate Subjective/Other Information MD consult for malnutrition. Pt lethargic and difficult to understand at time of visit. Unable to get accurate diet and weight history from pt. Per chart from 2105, pt weighed 89.7 kg. Lunch tray untouched at time of visit. Noticed pt to be missing teeth . Pt denied difficulty chewing or swallowing. Burn Absent Trauma Absent Current % PO Negligible Minimum of two criteria No Reduced [employer]ing [employer] Strength Measurably Reduced (severe) #1 Nutrition Diagnosis Inadequate oral intake Etiology encephalopathy As Evidenced by Signs and Symptoms pt not eating lunch Is patient on ventilator? No Is Patient Ambulatory and/or Out of Bed No REE-([facility]-confined to bed) 3773.964 Calculation Used for Recommendations [facility] Additional Notes Protein: 75-90g (1-1.2g/kg) Fluid: 1 ml/kcal Nutrition Intervention Change Diet Order: Continue current Add Supplement/Snack (indicate name/kcal Ensure Enlive Vanilla /protein ) Provides kCal: 350 Provides Protein (gm) 20 Goal #1 Meet at least 75% of energy and protein needs Anticipated Discharge Needs: Cardiac Follow-Up By: 10/28/19 Additional Comments F/U for intakes, full assessment
[2019-10-27] MEDS ORDERED: POTASSIUM CHLORIDE 40 MEQ in DEXTROSE 5% IN WATER 1,000 ML IV SCH (23:45)
[2019-10-28 06:27] LABS: BUN/Creatinine Ratio 35; Blood Urea Nitrogen 28 mg/dL (7-17); Calcium 8.2 mg/dL (8.4-10.2); Hemolysis Index 3
[2019-10-28] MEDS ORDERED: POTASSIUM CHLORIDE ER 20 MEQ TAB PO NR (09:20)
--- NOTE | 2019-10-28 09:32 | Progress Note ---
Assessment and Plan Assessment and plan: Patient is a 64 yo woman with a history of ETOH abuse, Nephrolithiasis and hypertension who presented to [facility] ED for AMS. She was found stuporous in her hotel room by a friend. In the ER patient was hypothermic, confused and appeared very dehydrated. Temp 93.4F, WBC 19.7, plt 131, Na 150, K 3.1, BUN 82, Cr 2.0 * Imaging reviewed, chest x-ray and CT head no acute findings. Labs show severe metabolic acidosis and acute kidney failure with a BUN of 88 and creatinine of 2.4. * Brain MRI IMPRESSION: No acute abnormality. Chronic white matter signal change. Correlate of basal ganglia and thalamic calcifications noted. * 10/25/2019 CT abd/pelvis without contrast IMPRESSION: 1. Possible mild colonic wall thickening suggesting colitis without obvious complication 2. Distended gallbladder with general increased density no definite acute abnormality and no definite calculi seen 3. Tiny (just under 4mm) right middle lobe nodule. See below==> (Solid Nodule size* <6 mm -- Single or Multiple - Low Risk Pa tient: No routine follow-up - High Risk Patient: Optional CT at 12 months) Sepsis due to Infectious Colitis, poa; received empiric abx in ER, will continue, Hypothermia; now resolved, TSH within normal limits Hypokalemia: replete, monitor closely Metabolic acidosis and lactic acidosis; bicarb drip Acute metabolic encephalopathy; likely due to kidney failure, MRI brain ordered, ammonia levels within normal limits ISMAEL, uremia due to vasomotor nephropathy; resolved, treated with IVF, bicarb drip, hx of etoh?, monitor for signs of withdrawal, thiamine and folate, thrombocytopenia is likely due to alcohol abuse, platelet counts 136 Moderate malnutrition, albumin of 3.2, CK 297, dietitian consulted Hypernatremia; resolved Dysphasia; speech therapy consulted, input noted to modify diet to mechanical soft with thin liquids Incidental very small Lung nodule Anemia, drop in H/H with +FOBT most likely acute anemia from GIB/colitis: Consulted GI 10/28/19: Looking back at Night Nurse's note from yesterday @ 0822, She doc umented one episode of black tarry foul smelling stool and unable to reach physician on Saturday night at 2200. The covering daytime nurse did not notified me yesterday as I started following patient. Will order stat CBC and stop Lovenox. Case management still trying to reach next of KIN. If H/H stable and no signs of bleeding then possible d/c tomorrow. Also ordered FOBT. Review of CT ab/pelvis shows colitis and with the knowledge of black tarry foul smelling stool with WBC 20.6, will start abx for infectious colitis. I met with daughter Tootie at bedside. Patient stopped living with daughter around July and moved in with a boyfriend. Disposition: Personal mcfp tomorrow. Consulted GI for ?GIB, colitis History Interval history: Patient was seen and examined. Follow-up on current diagnosis. Overnight uneventful as no events directly reported to me. Patient denies any chest pain, shortness breath, nausea/vomiting or severe headaches. Imaging, nursing note, chart, labs and old chart reviewed. Discussed with patient. Hospitalist Physical - Physical exam Narrative exam: Gen: unkempt, WDWN, NAD, Awake, Alert, Orientated HEENT: NCAT, alopecia, EOMI, PERRL, OP Clear Neck: supple, no adenopathy, no thyromegaly, no JVD CVS/Heart: RRR, normal S1S2, pulses present bilaterally Chest/Lungs: CTA B, Symmetrical chest expansion, good air entry bilaterally GI/Abdomen: soft, NTND, good bowel sounds, no guarding or rebound /Bladder: no suprapubic tenderness, no CVA or paraspinal tenderness Extermity/Skin: no c/c/e, no obvious rash MSK: FROM x 4 Neuro: CN 2-12 grossly intact, no new focal deficits Psych: calm - Constitutional Vitals: Temp Pulse Resp BP Pulse Ox 97.6 F 64 18 109/64 100 10/28/19 02:45 10/28/19 02:45 10/28/19 02:45 10/28/19 02:45 10/28/19 02:45 General appearance: Absent: mild distress Results - Labs CBC & Chem 7: 10/28/19 09:33 10/28/19 05:39 Labs: Laboratory Last Values WBC 20.6 K/mm3 (4.5-11.0) H 10/27/19 07:59 RBC 3.13 M/mm3 (3.65-5.03) L 10/27/19 07:59 Hgb 10.6 gm/dl (10.1-14.3) 10/27/19 07:59 Hct 32.1 % (30.3-42.9) 10/27/19 07:59 MCV 103 fl (79-97) H 10/27/19 07:59 MCH 34 pg (28-32) H 10/27/19 07:59 MCHC 33 % (30-34) 10/27/19 07:59 RDW 19.3 % (13.2-15.2) H 10/27/19 07:59 Plt Count 105 K/mm3 (140-440) L 10/27/19 07:59 Add Manual Diff Complete 10/27/19 07:59 Total Counted 100 10/27/19 07:59 Seg Neutrophils % Research Editor 10/26/19 05:21 Seg Neuts % (Manual) 89.0 % (40.0-70.0) H 10/27/19 07:59 Band Neutrophils % 0 % 10/27/19 07:59 Lymphocytes % (Manual) 6.0 % (13.4-35.0) L 10/27/19 07:59 Reactive Lymphs % (Man) 0 % 10/27/19 07:59 Monocytes % (Manual) 5.0 % (0.0-7.3) 10/27/19 07:59 Eosinophils % (Manual) 0 % (0.0-4.3) 10/27/19 07:59 Basophils % (Manual) 0 % (0.0-1.8) 10/27/19 07:59 Metamyelocytes % 0 % 10/27/19 07:59 Myelocytes % 0 % 10/27/19 07:59 Promyelocytes % 0 % 10/27/19 07:59 Blast Cells % 0 % 10/27/19 07:59 Nucleated RBC % Not Reportable 10/27/19 07:59 Seg Neutrophils # Man 18.3 K/mm3 (1.8-7.7) H 10/27/19 07:59 Band Neutrophils # 0.0 K/mm3 10/27/19 07:59 Lymphocytes # (Manual) 1.2 K/mm3 (1.2-5.4) 10/27/19 07:59 Abs React Lymphs (Man) 0.0 K/mm3 10/27/19 07:59 Monocytes # (Manual) 1.0 K/mm3 (0.0-0.8) H 10/27/19 07:59 Eosinophils # (Manual) 0.0 K/mm3 (0.0-0.4) 10/27/19 07:59 Basophils # (Manual) 0.0 K/mm3 (0.0-0.1) 10/27/19 07:59 Metamyelocytes # 0.0 K/mm3 10/27/19 07:59 Myelocytes # 0.0 K/mm3 10/27/19 07:59 Promyelocytes # 0.0 K/mm3 10/27/19 07:59 Blast Cells # 0.0 K/mm3 10/27/19 07:59 WBC Morphology Not Reportable 10/27/19 07:59 Hypersegmented Neuts Not Reportable 10/27/19 07:59 Hyposegmented Neuts Not Reportable 10/27/19 07:59 Hypogranular Neuts Not Reportable 10/27/19 07:59 Smudge Cells Not Reportable 10/27/19 07:59 Toxic Granulation Not Reportable 10/27/19 07:59 Toxic Vacuolation Not Reportable 10/27/19 07:59 Dohle Bodies Not Reportable 10/27/19 07:59 Pelger-Huet Anomaly Not Reportable 10/27/19 07:59 Boogie Rods Not Reportable 10/27/19 07:59 Platelet Estimate Consistent w auto 10/27/19 07:59 Clumped Platelets Not Reportable 10/27/19 07:59 Plt Clumps, EDTA Not Reportable 10/27/19 07:59 Large Platelets Not Reportable 10/27/19 07:59 Giant Platelets Not Reportable 10/27/19 07:59 Platelet Satelliting Not Reportable 10/27/19 07:59 Plt Morphology Comment Not Reportable 10/27/19 07:59 RBC Morphology Not Reportable 10/27/19 07:59 Dimorphic RBCs Not Reportable 10/27/19 07:59 Polychromasia Not Reportable 10/27/19 07:59 Hypochromasia Not Reportable 10/27/19 07:59 Poikilocytosis Not Reportable 10/27/19 07:59 Anisocytosis Few 10/27/19 07:59 Microcytosis Rare 10/27/19 07:59 Macrocytosis Not Reportable 10/27/19 07:59 Spherocytes Not Reportable 10/27/19 07:59 Pappenheimer Bodies Not Reportable 10/27/19 07:59 Sickle Cells Not Reportable 10/27/19 07:59 Target Cells Not Reportable 10/27/19 07:59 Tear Drop Cells Not Reportable 10/27/19 07:59 Ovalocytes Not Reportable 10/27/19 07:59 Helmet Cells Not Reportable 10/27/19 07:59 Walker-Ephrata Bodies Not Reportable 10/27/19 07:59 [place] Rings Not Reportable 10/27/19 07:59 Teddy Cells Not Reportable 10/27/19 07:59 Bite Cells Not Reportable 10/27/19 07:59 Crenated Cell Not Reportable 10/27/19 07:59 Elliptocytes Rare 10/27/19 07:59 Acanthocytes (Spur) Not Reportable 10/27/19 07:59 Rouleaux Not Reportable 10/27/19 07:59 Hemoglobin C Crystals Not Reportable 10/27/19 07:59 Schistocytes Not Reportable 10/27/19 07:59 Malaria parasites Not Reportable 10/27/19 07:59 Albert Bodies Not Reportable 10/27/19 07:59 Hem Pathologist Commnt No 10/27/19 07:59 PT 14.0 Sec. (12.2-14.9) 10/25/19 09:15 INR 1.07 (0.87-1.13) 10/25/19 09:15 APTT 30.4 Sec. (24.2-36.6) 10/25/19 09:15 VBG pH 7.370 (7.320-7.420) 10/25/19 09:15 Sodium 144 mmol/L (137-145) 10/28/19 05:39 Potassium 3.3 mmol/L (3.6-5.0) L 10/28/19 05:39 Chloride 108.9 mmol/L (98-107) H 10/28/19 05:39 Carbon Dioxide 23 mmol/L (22-30) 10/28/19 05:39 Anion Gap 15 mmol/L 10/28/19 05:39 BUN 28 mg/dL (7-17) H 10/28/19 05:39 Creatinine 0.8 mg/dL (0.7-1.2) 10/28/19 05:39 Estimated GFR > 60 ml/min 10/28/19 05:39 BUN/Creatinine Ratio 35 % 10/28/19 05:39 Glucose 117 mg/dL (65-100) H 10/28/19 05:39 POC Glucose 113 (70-105) H 10/27/19 20:59 Lactic Acid 1.60 mmol/L (0.7-2.0) 10/25/19 16:02 Calcium 8.2 mg/dL (8.4-10.2) L 10/28/19 05:39 Phosphorus 2.20 mg/dL (2.5-4.5) L D 10/27/19 07:59 Magnesium 2.30 mg/dL (1.7-2.3) 10/27/19 07:59 Total Bilirubin 0.40 mg/dL (0.1-1.2) 10/25/19 09:15 Direct Bilirubin < 0.2 mg/dL (0-0.2) 10/25/19 09:15 AST 98 units/L (5-40) H 10/25/19 09:15 ALT 85 units/L (7-56) H 10/25/19 09:15 Alkaline Phosphatase 121 units/L (35-129) 10/25/19 09:15 Ammonia 33.0 umol/L (25-60) 10/26/19 11:20 Total Creatine Kinase 297 units/L (30-135) H 10/25/19 09:15 CK-MB (CK-2) 5.5 ng/mL (0.0-4.0) H 10/25/19 09:15 CK-MB (CK-2) Rel Index 1.8 (0-4) 10/25/19 09:15 Troponin T < 0.010 ng/mL (0.00-0.029) 10/25/19 09:15 NT-Pro-B Natriuret Pep 806.3 pg/mL (0-900) 10/25/19 09:15 Total Protein 6.9 g/dL (6.3-8.2) 10/25/19 09:15 Albumin 3.2 g/dL (3.9-5) L 10/25/19 09:15 Albumin/Globulin Ratio 0.9 % 10/25/19 09:15 Lipase 194 units/L (13-60) H 10/25/19 09:15 TSH 3.640 mlU/mL (0.270-4.200) 10/25/19 13:30 Free T4 0.98 ng/dL (0.76-1.46) 10/25/19 13:30 Thyroxine (T4) 5.8 ug/dL (4.0-12.0) 10/25/19 13:30 Urine Color Meagan (Yellow) 10/25/19 09:03 Urine Turbidity Clear (Clear) 10/25/19 09:03 Urine pH 5.0 (5.0-7.0) 10/25/19 09:03 Ur Specific [place] 1.017 (1.003-1.030) 10/25/19 09:03 Urine Protein <15 mg/dl mg/dL (Negative) 10/25/19 09:03 Urine Glucose (UA) Neg mg/dL (Negative) 10/25/19 09:03 Urine Ketones Neg mg/dL (Negative) 10/25/19 09:03 Urine Blood Neg (Negative) 10/25/19 09:03 Urine Nitrite Neg (Negative) 10/25/19 09:03 Urine Bilirubin Neg (Negative) 10/25/19 09:03 Urine Urobilinogen < 2.0 mg/dL (<2.0) 10/25/19 09:03 Ur Leukocyte Esterase Neg (Negative) 10/25/19 09:03 Urine WBC (Auto) 3.0 /HPF (0.0-6.0) 10/25/19 09:03 Urine RBC (Auto) 1.0 /HPF (0.0-6.0) 10/25/19 09:03 Urine Mucus Few /HPF 10/25/19 09:03 Active Medications - Current Medications Current Medications: Generic Name Dose Route Start Last Admin Trade Name Freq PRN Reason Stop Dose Admin Acetaminophen 650 mg 10/25/19 11:55 Tylenol PO Q4H PRN Pain MILD(1-3)/Fever >100.5/SANTANA Citalopram Hydrobromide 10 mg 10/26/19 10:00 10/27/19 10:06 Celexa PO 10 mg QDAY BRAXTON Administration Enoxaparin Sodium 40 mg 10/27/19 07:50 10/27/19 23:12 Enoxaparin SUB-Q 40 mg QHS BRAXTON Administration Folic Acid 1 mg/ Sodium 50.2 mls @ 200.8 mls/hr 10/26/19 14:00 10/27/19 10:05 Chloride IV 200.8 mls/hr QDAY BRAXTON Administration Thiamine HCl 100 mg/ Sodium 51 mls @ 100 mls/hr 10/26/19 14:00 10/27/19 10:34 Chloride IV 100 mls/hr QDAY BRAXTON Administration Potassium Chloride 40 meq/ 1,020 mls @ 150 mls/hr 10/27/19 23:45 10/28/19 00:45 Dextrose IV 150 mls/hr DIRECT BRAXTON Administration Ondansetron HCl 4 mg 10/25/19 11:55 Zofran IV Q8H PRN Nausea And Vomiting Potassium Chloride 40 meq 10/28/19 09:20 K-Dur PO 10/28/19 11:00 ONCE NR Nutrition/Malnutrition Assess - Dietary Evaluation Nutrition/Malnutrition Findings: Nutrition Notes Start: 10/26/19 13:22 Freq: Status: Active Protocol: Document 10/26/19 13:23 LM (Rec: 10/26/19 13:48 LM [id number]) Nutrition Notes Need for Assessment generated from: MD Order,MST Initial or Follow up Assessment Current Diagnosis Acute Kidney Injury,Sepsis, Hypertension Other Pertinent Diagnosis SIRS, hypothermia, encephalopathy, ETOH dependence Current Diet Regular diet Labs/Tests K 3.1 Na 150 BUN 82 Cr 2.0 Mg 2.5 Pertinent Medications KCl at 125 ml/hr D5w at 150 ml/hr Height 5 ft 6 in Weight 74.843 kg [place] Body Weight (kg) 59.09 BMI 26.6 Weight change and time frame 17% wt loss in 3 years ( per chart from 2016) Weight Status Appropriate Subjective/Other Information MD consult for malnutrition. Pt lethargic and difficult to understand at time of visit. Unable to get accurate diet and weight history from pt. Per chart from 2016, pt weighed 89.7 kg. Lunch tray untouched at time of visit. Noticed pt to be missing teeth . Pt denied difficulty chewing or swallowing. Burn Absent Trauma Absent Current % PO Negligible Minimum of two criteria No Reduced Smooth Plater Strength Measurably Reduced (severe) #1 Nutrition Diagnosis Inadequate oral intake Etiology encephalopathy As Evidenced by Signs and Symptoms pt not eating lunch Is patient on ventilator? No Is Patient Ambulatory and/or Out of Bed No REE-([facility] Ruben[facility]-confined to bed) 0060.097 Calculation Used for Recommendations [facility] Additional Notes Protein: 75-90g (1-1.2g/kg) Fluid: 1 ml/kcal Nutrition Intervention Change Diet Order: Continue current Add Supplement/Snack (indicate name/kcal Ensure Enlive Vanilla /protein ) Provides kCal: 350 Provides Protein (gm) 20 Goal #1 Meet at least 75% of energy and protein needs Anticipated Discharge Needs: Cardiac Follow-Up By: 10/28/19 Additional Comments F/U for intakes, full assessment
--- NOTE | 2019-10-28 10:36 | Progress Note ---
Assessment and Plan - Patient Problems (1) Acute kidney injury Current Visit: Yes Status: Acute Plan to address problem: Elevated BUN/creatinine ratio suggests prerenal azotemia, improving with IVF. Continue empiric antibiotics. Follow-up electrolytes and renal function. Avoid potential nephrotoxins. (2) Systemic inflammatory response syndrome Current Visit: Yes Status: Acute Plan to address problem: s/p hypothermia, leukocytosis and lactic acidosis. Presumed sepsis source unclear. Cultures obtained. Continue empiric antibiotics. (3) Hypernatremia Current Visit: Yes Status: Acute Plan to address problem: resolved with D5w (4) Encephalopathy Current Visit: Yes Status: Acute Plan to address problem: Toxic/metabolic encephalopathy. Continue antibiotics. Follow-up electrolytes and renal function. (5) Hypertension Current Visit: Yes Status: Acute Plan to address problem: Blood pressure is normal. Continue to monitor (6) History of nephrolithiasis Current Visit: Yes Status: Acute Plan to address problem: No stones on CT scan. (7) History of alcohol abuse Current Visit: Yes Status: Acute Subjective Date of service: 10/28/19 Principal diagnosis: ISMAEL Interval history: Pt awake, alert, oriented x3, in no acute distress Objective - Vital Signs Vital signs: Vital Signs - 12hr 10/28/19 02:45 Temperature 97.6 F Pulse Rate 64 Respiratory 18 Rate Blood Pressure 109/64 [Left] O2 Sat by Pulse 100 Oximetry - General Appearance General appearance: well-developed, well-nourished, appears stated age EENT: ATNC, PERRL, mucous membranes moist Neck: no JVD Respiratory: Present: Clear to Ascultation Cardiology: regular, S1S2 Gastrointestinal: normoactive bowel sounds Integumentary: no rash, other (no edema ) Neurologic: no focal deficit, alert and oriented x3, strength 5/5, CN 3-12 intact Psychiatric: mood/affect appropriate, cooperative - Lab 10/27/19 07:59 10/28/19 05:39 Most recent lab results Calcium 8.2 mg/dL (8.4-10.2) L 10/28/19 05:39 Phosphorus 2.20 mg/dL (2.5-4.5) L D 10/27/19 07:59 Magnesium 2.30 mg/dL (1.7-2.3) 10/27/19 07:59 Medications & Allergies - Medications Allergies/Adverse Reactions: Allergies No Known Allergies Allergy (Verified 10/25/19 09:17) Home Medications: Home Medications Medication Instructions Recorded Confirmed Last Taken Type Citalopram [celeXA] 10 mg PO QDAY 08/27/15 08/27/15 08/24/15 History Folic Acid [Folvite] 1 mg PO QDAY #30 tablet 09/08/15 Unknown Rx Thiamine [Vitamin B-1] 100 mg PO QDAY #30 tablet 09/08/15 Unknown Rx Triamter/Hctz 37.5-25 mg 1 tab PO QDAY #30 tablet 09/08/15 Unknown Rx [Maxzide-25] Cyclobenzaprine [Flexeril] 10 mg PO TID PRN #14 tablet 08/22/16 Unknown Rx HYDROcodone/APAP 5-325 [[place] 1 - 2 each PO Q6HR PRN #14 tablet 08/22/16 Unknown Rx 5/325] Ibuprofen [Motrin 800 MG tab] 800 mg PO Q8HR PRN #20 tablet 08/22/16 Unknown Rx Active Medications: Generic Name Dose Route Start Last Admin Trade Name Freq PRN Reason Stop Dose Admin Acetaminophen 650 mg 10/25/19 11:55 Tylenol PO Q4H PRN Pain MILD(1-3)/Fever >100.5/SANTANA Citalopram Hydrobromide 10 mg 10/26/19 10:00 10/27/19 10:06 Celexa PO 10 mg QDAY BRAXTON Administration Folic Acid 1 mg 10/29/19 10:00 Folvite PO DAILY BRAXTON Folic Acid 1 mg/ Sodium 50.2 mls @ 200.8 mls/hr 10/26/19 14:00 10/27/19 10:05 Chloride IV 10/28/19 13:59 200.8 mls/hr QDAY BRAXTON Administration Thiamine HCl 100 mg/ Sodium 51 mls @ 100 mls/hr 10/26/19 14:00 10/27/19 10:34 Chloride IV 10/28/19 13:59 100 mls/hr QDAY BRAXTON Administration Potassium Chloride 40 meq/ 1,020 mls @ 150 mls/hr 10/27/19 23:45 10/28/19 00:45 Dextrose IV 150 mls/hr DIRECT BRAXTON Administration Levofloxacin 500 mg 10/28/19 10:00 Levaquin PO Q24HR BRAXTON Metronidazole 500 mg 10/28/19 14:00 Flagyl PO TID [facility] Protocol Ondansetron HCl 4 mg 10/25/19 11:55 Zofran IV Q8H PRN Nausea And Vomiting Potassium Chloride 40 meq 10/28/19 09:20 K-Dur PO 10/28/19 11:00 ONCE NR Thiamine HCl 100 mg 10/29/19 10:00 Vitamin B-1 PO QDAY BRAXTON
[2019-10-28 10:50] LABS: Hematocrit 28.7 % (30.3-42.9); Hemoglobin 9.6 gm/dl (10.1-14.3); Mean Corpuscular HGB Conc 33 % (30-34); Mean Corpuscular Volume 103 fl (79-97); Red Blood Count 2.78 M/mm3 (3.65-5.03)
[2019-10-28 10:54] LABS: Platelet Count 85 K/mm3 (140-440)
[2019-10-28] MEDS: levoFLOXacin 500 MG TAB PO SCH (14:03)
[2019-10-28] MEDS: FOLIC ACID 1 MG in SODIUM CHLORIDE 0.9% 50 ML IV SCH (14:03)
[2019-10-28] MEDS: CITALOPRAM 10 MG TAB PO SCH (14:03)
[2019-10-28] MEDS: THIAMINE 100 MG in SODIUM CHLORIDE 0.9% 50 ML IV SCH (14:03)
[2019-10-28] MEDS: metroNIDAZOLE 500 MG TAB PO SCH ×2 (14:05→21:05)
[2019-10-29 06:48] LABS: Hematocrit 30.2 % (30.3-42.9); Mean Corpuscular HGB Conc 33 % (30-34); Mean Corpuscular Volume 102 fl (79-97); Red Blood Count 2.96 M/mm3 (3.65-5.03)
[2019-10-29 06:54] LABS: Platelet Count 81 K/mm3 (140-440)
[2019-10-29 07:06] LABS: Alanine Aminotransferase 33 units/L (7-56); Albumin 2.6 g/dL (3.9-5); BUN/Creatinine Ratio 23; Blood Urea Nitrogen 16 mg/dL (7-17); Calcium 8.7 mg/dL (8.4-10.2); Hemolysis Index 8
--- NOTE | 2019-10-29 10:05 | Gastroenterology Consultation ---
<YOLANDA ABERNATHY - Last Filed: 10/29/19 10:53> History of Present Illness - Reason for Consult Consult date: 10/29/19 colitis Requesting physician: MIKAYLA NEVAREZ - History of Present Illness Patient is a 64 y/o female with PMH of ETOH abuse, kidney stones, and HTN who was brought to ED for evaluation of AMS after being found stuporous in her hotel room by a friend. Upon admission, she was found to be hypothermic, confused, and dehydrated. She was admitted and currently being treated for ISMAEL, SIRS, toxic/metabolic encephalopathy, hypokalemia/hypernatremia (resolved), hypothermia (resolved), malnutrition, and colitis seen on CT to which GI has been consulted. This morning patient was resting in bed w/o acute distress. Noted to be confused with oriented to person only (unable to provide history and no family at bedside; hx obtained via chart review). No active signs of bleeding per nursing but has had multiple loose stools with last BM greenish/brown in color. No evidence of abd pain or N/V. Tolerating small amounts of PO. Prior GI history or colonoscopy unknown. Past medical history; history of nephrolithiasis, history of previous nephrostomy tube in the past, hypertension Past surgical history; , nephrostomy Social history; unknown, the patient was brought from a hotel room, questionable history of alcohol abuse, unclear Family history; hypertension Past History Past Medical History: hypertension, other (History of nephrolithiasis, history of obstructive uropathy with E. coli sepsis) Past Surgical History: , Other (Nephrostomy tube placement ) Social history: other (alcohol abuse?) Family history: other (unknown) Medications and Allergies Allergies Allergy/AdvReac Type Severity Reaction Status Date / Time No Known Allergies Allergy Verified 10/25/19 09:17 Home Medications Medication Instructions Recorded Confirmed Last Taken Type Citalopram [celeXA] 10 mg PO QDAY 08/27/15 08/27/15 08/24/15 History Folic Acid [Folvite] 1 mg PO QDAY #30 tablet 09/08/15 Unknown Rx Thiamine [Vitamin B-1] 100 mg PO QDAY #30 tablet 09/08/15 Unknown Rx Triamter/Hctz 37.5-25 mg 1 tab PO QDAY #30 tablet 09/08/15 Unknown Rx [Maxzide-25] Cyclobenzaprine [Flexeril] 10 mg PO TID PRN #14 tablet 08/22/16 Unknown Rx HYDROcodone/APAP 5-325 [[place] 1 - 2 each PO Q6HR PRN #14 tablet 08/22/16 Unknown Rx 5/325] Ibuprofen [Motrin 800 MG tab] 800 mg PO Q8HR PRN #20 tablet 08/22/16 Unknown Rx Active Meds: Active Medications Acetaminophen (Tylenol) 650 mg PO Q4H PRN PRN Reason: Pain MILD(1-3)/Fever >100.5/SANTANA Citalopram Hydrobromide (Celexa) 10 mg PO QDAY [facility] Last Admin: 10/28/19 14:03 Dose: 10 mg Documented by: Folic Acid (Folvite) 1 mg PO DAILY [facility] Levofloxacin (Levaquin) 500 mg PO Q24HR [facility] Last Admin: 10/28/19 14:03 Dose: 500 mg Documented by: Metronidazole (Flagyl) 500 mg PO TID [facility]; Protocol Last Admin: 10/28/19 21:05 Dose: 500 mg Documented by: Ondansetron HCl (Zofran) 4 mg IV Q8H PRN PRN Reason: Nausea And Vomiting Thiamine HCl (Vitamin B-1) 100 mg PO QDAY [facility] medications reviewed/updated as required Review of Systems - Review of Systems ROS unobtainable: due to mental status Exam - Constitutional Vital Signs: Temp Pulse Resp BP Pulse Ox 97.9 F 68 20 100/69 100 10/29/19 06:44 10/29/19 06:44 10/29/19 06:44 10/29/19 06:44 10/29/19 06:44 General appearance: no acute distress - EENT Eyes: PERRL, EOM intact ENT: hearing intact - Respiratory Respiratory effort: normal Respiratory: bilateral: diminished - Cardiovascular Rhythm: regular - Gastrointestinal General gastrointestinal: Present: soft, non-distended, normal bowel sounds - Integumentary Integumentary: Present: warm - Neurologic Neurological: oriented to person - Labs CBC & Chem 7: 10/29/19 05:40 10/29/19 05:40 Lab Results: Laboratory Results - last 24 hr 10/28/19 10/29/19 10/29/19 09:33 05:40 05:40 WBC 20.2 H 14.5 H RBC 2.78 L 2.96 L Hgb 9.6 L 10.0 L Hct 28.7 L 30.2 L MCV 103 H 102 H MCH 34 H 34 H MCHC 33 33 RDW 19.0 H 19.0 H Plt Count 85 L 81 L Sodium 141 Potassium 3.6 Chloride 107.1 H Carbon Dioxide 21 L Anion Gap 17 BUN 16 Creatinine 0.7 Estimated GFR > 60 BUN/Creatinine Ratio 23 Glucose 80 Calcium 8.7 Total Bilirubin 0.20 AST 23 ALT 33 Alkaline Phosphatase 86 Total Protein 5.1 L D Albumin 2.6 L Albumin/Globulin Ratio 1.0 Assessment and Plan 1.colitis 2.drop in H/H/+FOBT 3.ETOH abuse? -afebrile -WBC 14.5-trending down -plt 81, LFTs WNL -H/H 10.0/30.2-stable -continue to monitor H/H and transfuse as needed -abd CT showed colitis (liver normal) -etiology unclear-likely infectious vs inflammatory vs other -clinically, patient with multiple loose stools but no active signs of bleeding (Last BM with greening/brown) per nursing. No evidence of abd pain or N/V. -no plan for scope at this time (pt may need colonoscopy as outpatient once acute process has resolved for further evaluation) -stool studies r/o infection -continue empiric antibiotics (flagyl/levaquin) and PPI -continue supportive care -electrolyte management per primary/nephrology -diet as tolerated per HEAVY EQUIPMENT OPERATOR/PAVER recommendations -will follow <RANDALL DORANTES - Last Filed: 10/29/19 19:04> Medications and Allergies Active Meds: Active Medications Acetaminophen (Tylenol) 650 mg PO Q4H PRN PRN Reason: Pain MILD(1-3)/Fever >100.5/SANTANA Citalopram Hydrobromide (Celexa) 10 mg PO QDAY [facility] Last Admin: 10/29/19 13:18 Dose: 10 mg Documented by: Folic Acid (Folvite) 1 mg PO DAILY [facility] Last Admin: 10/29/19 13:18 Dose: 1 mg Documented by: Levofloxacin (Levaquin) 500 mg PO Q24HR [facility] Last Admin: 10/29/19 13:18 Dose: 500 mg Documented by: Metronidazole (Flagyl) 500 mg PO TID [facility]; Protocol Last Admin: 10/29/19 13:18 Dose: 500 mg Documented by: Ondansetron HCl (Zofran) 4 mg IV Q8H PRN PRN Reason: Nausea And Vomiting Thiamine HCl (Vitamin B-1) 100 mg PO QDAY [facility] Last Admin: 10/29/19 13:19 Dose: 100 mg Documented by: Exam - Constitutional Vital Signs: Temp Pulse Resp BP Pulse Ox 97.9 F 75 16 104/62 100 10/29/19 13:16 10/29/19 13:16 10/29/19 13:16 10/29/19 13:16 10/29/19 13:16 - Labs CBC & Chem 7: 10/29/19 05:40 10/29/19 05:40 Lab Results: Laboratory Results - last 24 hr 10/29/19 10/29/19 05:40 05:40 WBC 14.5 H RBC 2.96 L Hgb 10.0 L Hct 30.2 L MCV 102 H MCH 34 H MCHC 33 RDW 19.0 H Plt Count 81 L Sodium 141 Potassium 3.6 Chloride 107.1 H Carbon Dioxide 21 L Anion Gap 17 BUN 16 Creatinine 0.7 Estimated GFR > 60 BUN/Creatinine Ratio 23 Glucose 80 Calcium 8.7 Total Bilirubin 0.20 AST 23 ALT 33 Alkaline Phosphatase 86 Total Protein 5.1 L D Albumin 2.6 L Albumin/Globulin Ratio 1.0 Assessment and Plan Patient seen and examined. I have reviewed the advanced practitioner's evaluation, assessment, and plan, and agree with them. I note the following additions: given improving symptoms and hgb stable, more likely acute self limited etiology rather than chronic colitis which would require colonoscopy at this juncture. If patient continues to improve can discharge with outpatient follow-up with GI Randall Dorantes M.D. - Patient Problems (1) Colitis Current Visit: Yes Status: Acute
[2019-10-29] MEDS: metroNIDAZOLE 500 MG TAB PO SCH ×3 (13:17→19:37)
[2019-10-29] MEDS: CITALOPRAM 10 MG TAB PO SCH (13:18)
[2019-10-29] MEDS: FOLIC ACID 1 MG TAB PO SCH (13:18)
[2019-10-29] MEDS: levoFLOXacin 500 MG TAB PO SCH (13:18)
[2019-10-29] MEDS: THIAMINE 100 MG TAB PO SCH (13:19)
--- NOTE | 2019-10-29 14:58 | Progress Note ---
Assessment and Plan - Patient Problems (1) Acute kidney injury Current Visit: Yes Status: Acute Plan to address problem: Elevated BUN/creatinine ratio suggests prerenal azotemia, improving with IVF. Continue empiric antibiotics. Follow-up electrolytes and renal function. Avoid potential nephrotoxins. will sign off for now, please call with any questions (2) Systemic inflammatory response syndrome Current Visit: Yes Status: Acute Plan to address problem: s/p hypothermia, leukocytosis and lactic acidosis. Presumed sepsis source unclear. Cultures obtained. Continue empiric antibiotics. (3) Hypernatremia Current Visit: Yes Status: Acute Plan to address problem: resolved with D5w (4) Encephalopathy Current Visit: Yes Status: Acute Plan to address problem: Toxic/metabolic encephalopathy. Continue antibiotics. Follow-up electrolytes and renal function. (5) Hypertension Current Visit: Yes Status: Acute Plan to address problem: Blood pressure is normal. Continue to monitor (6) History of nephrolithiasis Current Visit: Yes Status: Acute Plan to address problem: No stones on CT scan. (7) History of alcohol abuse Current Visit: Yes Status: Acute Subjective Date of service: 10/29/19 Principal diagnosis: ISMAEL Interval history: Pt awake, alert, oriented x3, in no acute distress Objective - Vital Signs Vital signs: Vital Signs - 12hr 10/29/19 06:44 Temperature 97.9 F Pulse Rate 68 Respiratory 20 Rate Blood Pressure 100/69 O2 Sat by Pulse 100 Oximetry - General Appearance General appearance: well-developed, well-nourished, appears stated age EENT: ATNC, PERRL, mucous membranes moist Neck: no JVD Respiratory: Present: Clear to Ascultation Cardiology: regular, S1S2 Gastrointestinal: normoactive bowel sounds Integumentary: no rash, other (no edema ) Neurologic: no focal deficit, alert and oriented x3, strength 5/5, CN 3-12 intact Psychiatric: mood/affect appropriate, cooperative - Lab 10/29/19 05:40 10/29/19 05:40 Most recent lab results Calcium 8.7 mg/dL (8.4-10.2) 10/29/19 05:40 Phosphorus 2.20 mg/dL (2.5-4.5) L D 10/27/19 07:59 Magnesium 2.30 mg/dL (1.7-2.3) 10/27/19 07:59 Medications & Allergies - Medications Allergies/Adverse Reactions: Allergies No Known Allergies Allergy (Verified 10/25/19 09:17) Home Medications: Home Medications Medication Instructions Recorded Confirmed Last Taken Type Citalopram [celeXA] 10 mg PO QDAY 08/27/15 08/27/15 08/24/15 History Folic Acid [Folvite] 1 mg PO QDAY #30 tablet 09/08/15 Unknown Rx Thiamine [Vitamin B-1] 100 mg PO QDAY #30 tablet 09/08/15 Unknown Rx Triamter/Hctz 37.5-25 mg 1 tab PO QDAY #30 tablet 09/08/15 Unknown Rx [Maxzide-25] Cyclobenzaprine [Flexeril] 10 mg PO TID PRN #14 tablet 08/22/16 Unknown Rx HYDROcodone/APAP 5-325 [[place] 1 - 2 each PO Q6HR PRN #14 tablet 08/22/16 Unknown Rx 5/325] Ibuprofen [Motrin 800 MG tab] 800 mg PO Q8HR PRN #20 tablet 08/22/16 Unknown Rx Active Medications: Generic Name Dose Route Start Last Admin Trade Name Freq PRN Reason Stop Dose Admin Acetaminophen 650 mg 10/25/19 11:55 Tylenol PO Q4H PRN Pain MILD(1-3)/Fever >100.5/SANTANA Citalopram Hydrobromide 10 mg 10/26/19 10:00 10/29/19 13:18 Celexa PO 10 mg QDAY [facility] Administration Folic Acid 1 mg 10/29/19 10:00 10/29/19 13:18 Folvite PO 1 mg DAILY [facility] Administration Levofloxacin 500 mg 10/28/19 10:00 10/29/19 13:18 Levaquin PO 500 mg Q24HR [facility] Administration Metronidazole 500 mg 10/28/19 14:00 10/29/19 13:18 Flagyl PO 500 mg TID [facility] Administration Protocol Ondansetron HCl 4 mg 10/25/19 11:55 Zofran IV Q8H PRN Nausea And Vomiting Thiamine HCl 100 mg 10/29/19 10:00 10/29/19 13:19 Vitamin B-1 PO 100 mg QDAY [facility] Administration
--- NOTE | 2019-10-29 15:30 | Progress Note ---
Assessment and Plan Assessment and plan: Patient is a 64 yo woman with a history of ETOH abuse, Nephrolithiasis and hypertension who presented to [facility] ED for AMS. She was found stuporous in her hotel room by a friend. In the ER patient was hypothermic, confused and appeared very dehydrated. Temp 93.4F, WBC 19.7, plt 131, Na 150, K 3.1, BUN 82, Cr 2.0 * Imaging reviewed, chest x-ray and CT head no acute findings. Labs show severe metabolic acidosis and acute kidney failure with a BUN of 88 and creatinine of 2.4. * Brain MRI IMPRESSION: No acute abnormality. Chronic white matter signal change. Correlate of basal ganglia and thalamic calcifications noted. * 10/25/2019 CT abd/pelvis without contrast IMPRESSION: 1. Possible mild colonic wall thickening suggesting colitis without obvious complication 2. Distended gallbladder with general increased density no definite acute abnormality and no definite calculi seen 3. Tiny (just under 4mm) right middle lobe nodule. See below==> (Solid Nodule size* <6 mm -- Single or Multiple - Low Risk Pa tient: No routine follow-up - High Risk Patient: Optional CT at 12 months) Sepsis due to Infectious Colitis, poa; received empiric abx in ER, will continue, Hypothermia; now resolved, TSH within normal limits Hypokalemia: replete, monitor closely Metabolic acidosis and lactic acidosis; bicarb drip Acute metabolic encephalopathy; likely due to kidney failure, MRI brain ordered, ammonia levels within normal limits ISMAEL, uremia due to vasomotor nephropathy; resolved, treated with IVF, bicarb drip, hx of etoh?, monitor for signs of withdrawal, thiamine and folate, thrombocytopenia is likely due to alcohol abuse, platelet counts 136 Moderate malnutrition, albumin of 3.2, CK 297, dietitian consulted Hypernatremia; resolved Dysphasia; speech therapy consulted, input noted to modify diet to mechanical soft with thin liquids Incidental very small Lung nodule Anemia, drop in H/H with +FOBT most likely acute anemia from GIB/colitis: Consulted GI 10/28/19: Looking back at Night Nurse's note from yesterday @ 0822, She doc umented one episode of black tarry foul smelling stool and unable to reach physician on Saturday night at 2200. The covering daytime nurse did not notified me yesterday as I started following patient. Will order stat CBC and stop Lovenox. Case management still trying to reach next of KIN. If H/H stable and no signs of bleeding then possible d/c tomorrow. Also ordered FOBT. Review of CT ab/pelvis shows colitis and with the knowledge of black tarry foul smelling stool with WBC 20.6, will start abx for infectious colitis. I met with daughter Tootie at bedside. Patient stopped living with daughter around July and moved in with a boyfriend. Disposition: Personal fdc tomorrow. Consulted GI for ?GIB, colitis 10/29/19: Diarrhea slowing up, continue levaquin/flagyl, GI note reviewed. Main issue is Urinary retention: place [facility], home/SNF with [facility] and outpatient Urology follow-up. Physical Therapy recommends IRU, will see if insurance allows. We could always do [facility]/Transition home with outpatient Rehab, d/w case management History Interval history: Patient was seen and examined. Follow-up on current diagnosis. Overnight uneventful as no events directly reported to me. Patient denies any chest pain, shortness breath, nausea/vomiting or severe headaches. Imaging, nursing note, chart, labs and old chart reviewed. Discussed with patient. Hospitalist Physical - Physical exam Narrative exam: Gen: unkempt, WDWN, NAD, Awake, Alert, Orientated HEENT: NCAT, alopecia, EOMI, PERRL, OP Clear Neck: supple, no adenopathy, no thyromegaly, no JVD CVS/Heart: RRR, normal S1S2, pulses present bilaterally Chest/Lungs: CTA B, Symmetrical chest expansion, good air entry bilaterally GI/Abdomen: soft, NTND, good bowel sounds, no guarding or rebound /Bladder: no suprapubic tenderness, no CVA or paraspinal tenderness Extermity/Skin: no c/c/e, no obvious rash MSK: FROM x 4 Neuro: CN 2-12 grossly intact, no new focal deficits Psych: calm - Constitutional Vitals: Temp Pulse Resp BP Pulse Ox 97.9 F 75 16 104/62 100 10/29/19 13:16 10/29/19 13:16 10/29/19 13:16 10/29/19 13:16 10/29/19 13:16 General appearance: Absent: mild distress Results - Labs CBC & Chem 7: 02/27/20 05:40 10/29/19 05:40 Labs: Laboratory Last Values WBC 14.5 K/mm3 (4.5-11.0) H 10/29/19 05:40 RBC 2.96 M/mm3 (3.65-5.03) L 10/29/19 05:40 Hgb 10.0 gm/dl (10.1-14.3) L 10/29/19 05:40 Hct 30.2 % (30.3-42.9) L 10/29/19 05:40 MCV 102 fl (79-97) H 10/29/19 05:40 MCH 34 pg (28-32) H 10/29/19 05:40 MCHC 33 % (30-34) 10/29/19 05:40 RDW 19.0 % (13.2-15.2) H 10/29/19 05:40 Plt Count 81 K/mm3 (140-440) L 10/29/19 05:40 Add Manual Diff Complete 10/27/19 07:59 Total Counted 100 10/27/19 07:59 Seg Neutrophils % Podopediatrician 10/26/19 05:21 Seg Neuts % (Manual) 89.0 % (40.0-70.0) H 10/27/19 07:59 Band Neutrophils % 0 % 10/27/19 07:59 Lymphocytes % (Manual) 6.0 % (13.4-35.0) L 10/27/19 07:59 Reactive Lymphs % (Man) 0 % 10/27/19 07:59 Monocytes % (Manual) 5.0 % (0.0-7.3) 10/27/19 07:59 Eosinophils % (Manual) 0 % (0.0-4.3) 10/27/19 07:59 Basophils % (Manual) 0 % (0.0-1.8) 10/27/19 07:59 Metamyelocytes % 0 % 10/27/19 07:59 Myelocytes % 0 % 10/27/19 07:59 Promyelocytes % 0 % 10/27/19 07:59 Blast Cells % 0 % 10/27/19 07:59 Nucleated RBC % Not Reportable 10/27/19 07:59 Seg Neutrophils # Man 18.3 K/mm3 (1.8-7.7) H 10/27/19 07:59 Band Neutrophils # 0.0 K/mm3 10/27/19 07:59 Lymphocytes # (Manual) 1.2 K/mm3 (1.2-5.4) 10/27/19 07:59 Abs React Lymphs (Man) 0.0 K/mm3 10/27/19 07:59 Monocytes # (Manual) 1.0 K/mm3 (0.0-0.8) H 10/27/19 07:59 Eosinophils # (Manual) 0.0 K/mm3 (0.0-0.4) 10/27/19 07:59 Basophils # (Manual) 0.0 K/mm3 (0.0-0.1) 10/27/19 07:59 Metamyelocytes # 0.0 K/mm3 10/27/19 07:59 Myelocytes # 0.0 K/mm3 10/27/19 07:59 Promyelocytes # 0.0 K/mm3 10/27/19 07:59 Blast Cells # 0.0 K/mm3 10/27/19 07:59 WBC Morphology Not Reportable 10/27/19 07:59 Hypersegmented Neuts Not Reportable 10/27/19 07:59 Hyposegmented Neuts Not Reportable 10/27/19 07:59 Hypogranular Neuts Not Reportable 10/27/19 07:59 Smudge Cells Not Reportable 10/27/19 07:59 Toxic Granulation Not Reportable 10/27/19 07:59 Toxic Vacuolation Not Reportable 10/27/19 07:59 Dohle Bodies Not Reportable 10/27/19 07:59 Pelger-Huet Anomaly Not Reportable 10/27/19 07:59 Boogie Rods Not Reportable 10/27/19 07:59 Platelet Estimate Consistent w auto 10/27/19 07:59 Clumped Platelets Not Reportable 10/27/19 07:59 Plt Clumps, EDTA Not Reportable 10/27/19 07:59 Large Platelets Not Reportable 10/27/19 07:59 Giant Platelets Not Reportable 10/27/19 07:59 Platelet Satelliting Not Reportable 10/27/19 07:59 Plt Morphology Comment Not Reportable 10/27/19 07:59 RBC Morphology Not Reportable 10/27/19 07:59 Dimorphic RBCs Not Reportable 10/27/19 07:59 Polychromasia Not Reportable 10/27/19 07:59 Hypochromasia Not Reportable 10/27/19 07:59 Poikilocytosis Not Reportable 10/27/19 07:59 Anisocytosis Few 10/27/19 07:59 Microcytosis Rare 10/27/19 07:59 Macrocytosis Not Reportable 10/27/19 07:59 Spherocytes Not Reportable 10/27/19 07:59 Pappenheimer Bodies Not Reportable 10/27/19 07:59 Sickle Cells Not Reportable 10/27/19 07:59 Target Cells Not Reportable 10/27/19 07:59 Tear Drop Cells Not Reportable 10/27/19 07:59 Ovalocytes Not Reportable 10/27/19 07:59 Helmet Cells Not Reportable 10/27/19 07:59 [place] Bodies Not Reportable 10/27/19 07:59 [place] Rings Not Reportable 10/27/19 07:59 Teddy Cells Not Reportable 10/27/19 07:59 Bite Cells Not Reportable 10/27/19 07:59 Crenated Cell Not Reportable 10/27/19 07:59 Elliptocytes Rare 10/27/19 07:59 Acanthocytes (Spur) Not Reportable 10/27/19 07:59 Rouleaux Not Reportable 10/27/19 07:59 Hemoglobin C Crystals Not Reportable 10/27/19 07:59 Schistocytes Not Reportable 10/27/19 07:59 Malaria parasites Not Reportable 10/27/19 07:59 Albert Bodies Not Reportable 10/27/19 07:59 Hem Pathologist Commnt No 10/27/19 07:59 PT 14.0 Sec. (12.2-14.9) 10/25/19 09:15 INR 1.07 (0.87-1.13) 10/25/19 09:15 APTT 30.4 Sec. (24.2-36.6) 10/25/19 09:15 VBG pH 7.370 (7.320-7.420) 10/25/19 09:15 Sodium 141 mmol/L (137-145) 10/29/19 05:40 Potassium 3.6 mmol/L (3.6-5.0) 10/29/19 05:40 Chloride 107.1 mmol/L (98-107) H 10/29/19 05:40 Carbon Dioxide 21 mmol/L (22-30) L 10/29/19 05:40 Anion Gap 17 mmol/L 10/29/19 05:40 BUN 16 mg/dL (7-17) 10/29/19 05:40 Creatinine 0.7 mg/dL (0.7-1.2) 10/29/19 05:40 Estimated GFR > 60 ml/min 10/29/19 05:40 BUN/Creatinine Ratio 23 % 10/29/19 05:40 Glucose 80 mg/dL (65-100) 10/29/19 05:40 POC Glucose 113 (70-105) H 10/27/19 20:59 Lactic Acid 1.60 mmol/L (0.7-2.0) 10/25/19 16:02 Calcium 8.7 mg/dL (8.4-10.2) 10/29/19 05:40 Phosphorus 2.20 mg/dL (2.5-4.5) L D 10/27/19 07:59 Magnesium 2.30 mg/dL (1.7-2.3) 10/27/19 07:59 Total Bilirubin 0.20 mg/dL (0.1-1.2) 10/29/19 05:40 Direct Bilirubin < 0.2 mg/dL (0-0.2) 10/25/19 09:15 AST 23 units/L (5-40) 10/29/19 05:40 ALT 33 units/L (7-56) 10/29/19 05:40 Alkaline Phosphatase 86 units/L (35-129) 10/29/19 05:40 Ammonia 33.0 umol/L (25-60) 10/26/19 11:20 Total Creatine Kinase 297 units/L (30-135) H 10/25/19 09:15 CK-MB (CK-2) 5.5 ng/mL (0.0-4.0) H 10/25/19 09:15 CK-MB (CK-2) Rel Index 1.8 (0-4) 10/25/19 09:15 Troponin T < 0.010 ng/mL (0.00-0.029) 10/25/19 09:15 NT-Pro-B Natriuret Pep 806.3 pg/mL (0-900) 10/25/19 09:15 Total Protein 5.1 g/dL (6.3-8.2) L D 10/29/19 05:40 Albumin 2.6 g/dL (3.9-5) L 10/29/19 05:40 Albumin/Globulin Ratio 1.0 % 10/29/19 05:40 Lipase 194 units/L (13-60) H 10/25/19 09:15 TSH 3.640 mlU/mL (0.270-4.200) 10/25/19 13:30 Free T4 0.98 ng/dL (0.76-1.46) 10/25/19 13:30 Thyroxine (T4) 5.8 ug/dL (4.0-12.0) 10/25/19 13:30 Urine Color Meagan (Yellow) 10/25/19 09:03 Urine Turbidity Clear (Clear) 10/25/19 09:03 Urine pH 5.0 (5.0-7.0) 10/25/19 09:03 Ur Specific [place] 1.017 (1.003-1.030) 10/25/19 09:03 Urine Protein <15 mg/dl mg/dL (Negative) 10/25/19 09:03 Urine Glucose (UA) Neg mg/dL (Negative) 10/25/19 09:03 Urine Ketones Neg mg/dL (Negative) 10/25/19 09:03 Urine Blood Neg (Negative) 10/25/19 09:03 Urine Nitrite Neg (Negative) 10/25/19 09:03 Urine Bilirubin Neg (Negative) 10/25/19 09:03 Urine Urobilinogen < 2.0 mg/dL (<2.0) 10/25/19 09:03 Ur Leukocyte Esterase Neg (Negative) 10/25/19 09:03 Urine WBC (Auto) 3.0 /HPF (0.0-6.0) 10/25/19 09:03 Urine RBC (Auto) 1.0 /HPF (0.0-6.0) 10/25/19 09:03 Urine Mucus Few /HPF 10/25/19 09:03 Active Medications - Current Medications Current Medications: Generic Name Dose Route Start Last Admin Trade Name Freq PRN Reason Stop Dose Admin Acetaminophen 650 mg 10/25/19 11:55 Tylenol PO Q4H PRN Pain MILD(1-3)/Fever >100.5/SANTANA Citalopram Hydrobromide 10 mg 10/26/19 10:00 10/29/19 13:18 Celexa PO 10 mg QDAY [facility] Administration Folic Acid 1 mg 10/29/19 10:00 10/29/19 13:18 Folvite PO 1 mg DAILY [facility] Administration Levofloxacin 500 mg 10/28/19 10:00 10/29/19 13:18 Levaquin PO 500 mg Q24HR [facility] Administration Metronidazole 500 mg 10/28/19 14:00 10/29/19 13:18 Flagyl PO 500 mg TID [facility] Administration Protocol Ondansetron HCl 4 mg 10/25/19 11:55 Zofran IV Q8H PRN Nausea And Vomiting Thiamine HCl 100 mg 10/29/19 10:00 10/29/19 13:19 Vitamin B-1 PO 100 mg QDAY [facility] Administration Nutrition/Malnutrition Assess - Dietary Evaluation Nutrition/Malnutrition Findings: Nutrition Notes Start: 10/26/19 13:22 Freq: Status: Active Protocol: Document 10/28/19 11:10 LM (Rec: 10/28/19 11:16 LM [id number]) Nutrition Notes Initial or Follow up Reassessment Current Diagnosis Acute Kidney Injury,Sepsis, Hypertension Other Pertinent Diagnosis SIRS, hypothermia, encephalopathy, ETOH dependence Current Diet Renal diet Labs/Tests K 3.3 BUN 28 Pertinent Medications KCl at 150 ml/hr Height 5 ft 6 in Weight 74.843 kg [place] Body Weight (kg) 59.09 BMI 26.6 Weight Status Overweight Subjective/Other Information Pt less lethargic at time of visit. Pt just beginning to eat her breakfast at time of visit. Pt stated she has a " pretty good" appetite. Noted SHREDDING FLOOR EQUIPMENT OPERATOR recommends mechanical soft diet for pt. Changed diet to [facility] soft/renal. Noticed pt did not drink Ensure. Pt could not state if she has tried/ consumed Ensure. Burn Absent Trauma Absent Difficulty In Swallowing,Chewing Minimum of two criteria No Reduced Transcription Strength Measurably Reduced (severe) #1 Nutrition Diagnosis Inadequate oral intake Diagnosis Progress(for reassessment Continues documentation) Is patient on ventilator? No Is Patient Ambulatory and/or Out of Bed No REE-([facility]-confined to bed) [phone] Calculation Used for Recommendations Vipin Borja Additional Notes Protein: 75-90g (1-1.2g/kg) Fluid: 1 ml/kcal Nutrition Intervention Change Diet Order: Mechanical soft/renal Add Supplement/Snack (indicate name/kcal Ensure Enlive Vanilla daily /protein ) Provides kCal: 350 Provides Protein (gm) 20 Goal #1 Meet at least 75% of energy and protein needs Goal #2 diet tolerance Anticipated Discharge Needs: mechanical soft Follow-Up By: 10/30/19 Additional Comments F/U for intakes
[2019-10-30 06:22] LABS: Hematocrit 27.5 % (30.3-42.9); Hemoglobin 9.4 gm/dl (10.1-14.3); Mean Corpuscular HGB Conc 34 % (30-34); Mean Corpuscular Volume 101 fl (79-97); Red Blood Count 2.73 M/mm3 (3.65-5.03); Red Cell Distribution Width 18.9 % (13.2-15.2)
[2019-10-30 06:47] LABS: Platelet Count 85 K/mm3 (140-440)
[2019-10-30 06:49] LABS: Alanine Aminotransferase 28 units/L (7-56); Albumin 2.7 g/dL (3.9-5); BUN/Creatinine Ratio 14; Blood Urea Nitrogen 13 mg/dL (7-17); Calcium 8.6 mg/dL (8.4-10.2); Hemolysis Index 11
[2019-10-30] MEDS: FOLIC ACID 1 MG TAB PO SCH (10:46)
[2019-10-30] MEDS: metroNIDAZOLE 500 MG TAB PO SCH ×3 (10:46→20:12)
[2019-10-30] MEDS: THIAMINE 100 MG TAB PO SCH (10:46)
[2019-10-30] MEDS: levoFLOXacin 500 MG TAB PO SCH (10:46)
[2019-10-30] MEDS: CITALOPRAM 10 MG TAB PO SCH (10:46)
--- NOTE | 2019-10-30 12:22 | Progress Note ---
Assessment and Plan Assessment and plan: Patient is a 64 yo woman with a history of ETOH abuse, Nephrolithiasis and hypertension who presented to [facility] ED for AMS. She was found stuporous in her hotel room by a friend. In the ER patient was hypothermic, confused and appeared very dehydrated. Temp 93.4F, WBC 19.7, plt 131, Na 150, K 3.1, BUN 82, Cr 2.0 * Imaging reviewed, chest x-ray and CT head no acute findings. Labs show severe metabolic acidosis and acute kidney failure with a BUN of 88 and creatinine of 2.4. * Brain MRI IMPRESSION: No acute abnormality. Chronic white matter signal change. Correlate of basal ganglia and thalamic calcifications noted. * 10/25/2019 CT abd/pelvis without contrast IMPRESSION: 1. Possible mild colonic wall thickening suggesting colitis without obvious complication 2. Distended gallbladder with general increased density no definite acute abnormality and no definite calculi seen 3. Tiny (just under 4mm) right middle lobe nodule. See below==> (Solid Nodule size* <6 mm -- Single or Multiple - Low Risk Pa tient: No routine follow-up - High Risk Patient: Optional CT at 12 months) Sepsis due to Infectious Colitis, poa; received empiric abx in ER, will continue, Hypothermia; now resolved, TSH within normal limits Hypokalemia: replete, monitor closely Metabolic acidosis and lactic acidosis; bicarb drip Acute metabolic encephalopathy; likely due to kidney failure, MRI brain ordered, ammonia levels within normal limits ISMAEL, uremia due to vasomotor nephropathy; resolved, treated with IVF, bicarb drip, Alcohol abuse per daughter, monitor for signs of withdrawal, thiamine and folate, thrombocytopenia is likely due to alcohol abuse, platelet counts 136 Moderate malnutrition, albumin of 3.2, CK 297, dietitian consulted Hypernatremia; resolved Dysphagia; speech therapy consulted, input noted to modify diet to mechanical soft with thin liquids Incidental very small Lung nodule Anemia, drop in H/H with +FOBT most likely acute anemia from GIB/colitis: Consulted GI 10/28/19: Looking back at Night Nurse's note from yesterday @ 0822, She documented one episode of black tarry foul smelling stool and unable to reach physician on Saturday night at 2200. The covering daytime nurse did not notified me yesterday as I started following patient. Will order stat CBC and stop Lovenox. Case management still trying to reach next of KIN. If H/H stable and no signs of bleeding then possible d/c tomorrow. Also ordered FOBT. Review of CT ab/pelvis shows colitis and with the knowledge of black tarry foul smelling stool with WBC 20.6, will start abx for infectious colitis. I met with abel Sommers at bedside. Patient stopped living with daughter around July and moved in with a boyfriend. Disposition: Personal mcc tomorrow. Consulted GI for ?GIB, colitis 10/29/19: Diarrhea slowing up, continue levaquin/flagyl, GI note reviewed. Main issue is Urinary retention: [facility], home[facility] with [facility] and outpatient Urology follow-up. Physical Therapy recommends IRU, will see if insurance allows. We could always do [facility]/Transition home with outpatient Rehab, d/w case management 10/30/19: Doing better, h/h stable, electrolyte normal, ARF resolved, wbc decreasing, plt count still low, less diarrhea, still not eating much but drinking Boost supplemental shakes. IRU has declined her and recommend SNF, so the referral will be sent out today. I called and spoke with abel Sommers, , update given History Interval history: Patient was seen and examined. Follow-up on current diagnosis. Overnight uneventful as no events directly reported to me. Patient denies any chest pain, shortness breath, nausea/vomiting or severe headaches. Imaging, nursing note, chart, labs and old chart reviewed. Discussed with patient. Hospitalist Physical - Physical exam Narrative exam: Gen: unkempt, WDWN, NAD, Awake, Alert, Orientated HEENT: NCAT, alopecia, EOMI, PERRL, OP Clear Neck: supple, no adenopathy, no thyromegaly, no JVD CVS/Heart: RRR, normal S1S2, pulses present bilaterally Chest/Lungs: CTA B, Symmetrical chest expansion, good air entry bilaterally GI/Abdomen: soft, NTND, good bowel sounds, no guarding or rebound /Bladder: no suprapubic tenderness, no CVA or paraspinal tenderness Extermity/Skin: no c/c/e, no obvious rash MSK: FROM x 4 Neuro: CN 2-12 grossly intact, no new focal deficits Psych: calm - Constitutional Vitals: Temp Pulse Resp BP Pulse Ox 98.0 F 75 16 120/60 100 10/30/19 05:21 10/30/19 05:21 10/30/19 05:21 10/30/19 05:21 10/30/19 05:21 General appearance: Absent: mild distress Results - Labs CBC & Chem 7: 10/30/19 05:50 10/30/19 05:50 Labs: Laboratory Last Values WBC 13.1 K/mm3 (4.5-11.0) H 10/30/19 05:50 RBC 2.73 M/mm3 (3.65-5.03) L 10/30/19 05:50 Hgb 9.4 gm/dl (10.1-14.3) L 10/30/19 05:50 Hct 27.5 % (30.3-42.9) L 10/30/19 05:50 MCV 101 fl (79-97) H 10/30/19 05:50 MCH 34 pg (28-32) H 10/30/19 05:50 MCHC 34 % (30-34) 10/30/19 05:50 RDW 18.9 % (13.2-15.2) H 10/30/19 05:50 Plt Count 85 K/mm3 (140-440) L 10/30/19 05:50 Add Manual Diff Complete 10/27/19 07:59 Total Counted 100 10/27/19 07:59 Seg Neutrophils % Lease Examiner 10/26/19 05:21 Seg Neuts % (Manual) 89.0 % (40.0-70.0) H 10/27/19 07:59 Band Neutrophils % 0 % 10/27/19 07:59 Lymphocytes % (Manual) 6.0 % (13.4-35.0) L 10/27/19 07:59 Reactive Lymphs % (Man) 0 % 10/27/19 07:59 Monocytes % (Manual) 5.0 % (0.0-7.3) 10/27/19 07:59 Eosinophils % (Manual) 0 % (0.0-4.3) 10/27/19 07:59 Basophils % (Manual) 0 % (0.0-1.8) 10/27/19 07:59 Metamyelocytes % 0 % 10/27/19 07:59 Myelocytes % 0 % 10/27/19 07:59 Promyelocytes % 0 % 10/27/19 07:59 Blast Cells % 0 % 10/27/19 07:59 Nucleated RBC % Not Reportable 10/27/19 07:59 Seg Neutrophils # Man 18.3 K/mm3 (1.8-7.7) H 10/27/19 07:59 Band Neutrophils # 0.0 K/mm3 10/27/19 07:59 Lymphocytes # (Manual) 1.2 K/mm3 (1.2-5.4) 10/27/19 07:59 Abs React Lymphs (Man) 0.0 K/mm3 10/27/19 07:59 Monocytes # (Manual) 1.0 K/mm3 (0.0-0.8) H 10/27/19 07:59 Eosinophils # (Manual) 0.0 K/mm3 (0.0-0.4) 10/27/19 07:59 Basophils # (Manual) 0.0 K/mm3 (0.0-0.1) 10/27/19 07:59 Metamyelocytes # 0.0 K/mm3 10/27/19 07:59 Myelocytes # 0.0 K/mm3 10/27/19 07:59 Promyelocytes # 0.0 K/mm3 10/27/19 07:59 Blast Cells # 0.0 K/mm3 10/27/19 07:59 WBC Morphology Not Reportable 10/27/19 07:59 Hypersegmented Neuts Not Reportable 10/27/19 07:59 Hyposegmented Neuts Not Reportable 10/27/19 07:59 Hypogranular Neuts Not Reportable 10/27/19 07:59 Smudge Cells Not Reportable 10/27/19 07:59 Toxic Granulation Not Reportable 10/27/19 07:59 Toxic Vacuolation Not Reportable 10/27/19 07:59 Dohle Bodies Not Reportable 10/27/19 07:59 Pelger-Huet Anomaly Not Reportable 10/27/19 07:59 Boogie Rods Not Reportable 10/27/19 07:59 Platelet Estimate Consistent w auto 10/27/19 07:59 Clumped Platelets Not Reportable 10/27/19 07:59 Plt Clumps, EDTA Not Reportable 10/27/19 07:59 Large Platelets Not Reportable 10/27/19 07:59 Giant Platelets Not Reportable 10/27/19 07:59 Platelet Satelliting Not Reportable 10/27/19 07:59 Plt Morphology Comment Not Reportable 10/27/19 07:59 RBC Morphology Not Reportable 10/27/19 07:59 Dimorphic RBCs Not Reportable 10/27/19 07:59 Polychromasia Not Reportable 10/27/19 07:59 Hypochromasia Not Reportable 10/27/19 07:59 Poikilocytosis Not Reportable 10/27/19 07:59 Anisocytosis Few 10/27/19 07:59 Microcytosis Rare 10/27/19 07:59 Macrocytosis Not Reportable 10/27/19 07:59 Spherocytes Not Reportable 10/27/19 07:59 Pappenheimer Bodies Not Reportable 10/27/19 07:59 Sickle Cells Not Reportable 10/27/19 07:59 Target Cells Not Reportable 10/27/19 07:59 Tear Drop Cells Not Reportable 10/27/19 07:59 Ovalocytes Not Reportable 10/27/19 07:59 Helmet Cells Not Reportable 10/27/19 07:59 [place] Bodies Not Reportable 10/27/19 07:59 [place] Rings Not Reportable 10/27/19 07:59 Teddy Cells Not Reportable 10/27/19 07:59 Bite Cells Not Reportable 10/27/19 07:59 Crenated Cell Not Reportable 10/27/19 07:59 Elliptocytes Rare 10/27/19 07:59 Acanthocytes (Spur) Not Reportable 10/27/19 07:59 Rouleaux Not Reportable 10/27/19 07:59 Hemoglobin C Crystals Not Reportable 10/27/19 07:59 Schistocytes Not Reportable 10/27/19 07:59 Malaria parasites Not Reportable 10/27/19 07:59 Albert Bodies Not Reportable 10/27/19 07:59 Hem Pathologist Commnt No 10/27/19 07:59 PT 14.0 Sec. (12.2-14.9) 10/25/19 09:15 INR 1.07 (0.87-1.13) 10/25/19 09:15 APTT 30.4 Sec. (24.2-36.6) 10/25/19 09:15 VBG pH 7.370 (7.320-7.420) 10/25/19 09:15 Sodium 140 mmol/L (137-145) 10/30/19 05:50 Potassium 3.6 mmol/L (3.6-5.0) 10/30/19 05:50 Chloride 106.6 mmol/L (98-107) 10/30/19 05:50 Carbon Dioxide 18 mmol/L (22-30) L 10/30/19 05:50 Anion Gap 19 mmol/L 10/30/19 05:50 BUN 13 mg/dL (7-17) 10/30/19 05:50 Creatinine 0.9 mg/dL (0.7-1.2) 10/30/19 05:50 Estimated GFR > 60 ml/min 10/30/19 05:50 BUN/Creatinine Ratio 14 % 10/30/19 05:50 Glucose 87 mg/dL (65-100) 10/30/19 05:50 POC Glucose 113 (70-105) H 10/27/19 20:59 Lactic Acid 1.60 mmol/L (0.7-2.0) 10/25/19 16:02 Calcium 8.6 mg/dL (8.4-10.2) 10/30/19 05:50 Phosphorus 2.20 mg/dL (2.5-4.5) L D 10/27/19 07:59 Magnesium 2.30 mg/dL (1.7-2.3) 10/27/19 07:59 Total Bilirubin 0.30 mg/dL (0.1-1.2) 10/30/19 05:50 Direct Bilirubin < 0.2 mg/dL (0-0.2) 10/25/19 09:15 AST 18 units/L (5-40) 10/30/19 05:50 ALT 28 units/L (7-56) 10/30/19 05:50 Alkaline Phosphatase 89 units/L (35-129) 10/30/19 05:50 Ammonia 33.0 umol/L (25-60) 10/26/19 11:20 Total Creatine Kinase 297 units/L (30-135) H 10/25/19 09:15 CK-MB (CK-2) 5.5 ng/mL (0.0-4.0) H 10/25/19 09:15 CK-MB (CK-2) Rel Index 1.8 (0-4) 10/25/19 09:15 Troponin T < 0.010 ng/mL (0.00-0.029) 10/25/19 09:15 NT-Pro-B Natriuret Pep 806.3 pg/mL (0-900) 10/25/19 09:15 Total Protein 4.7 g/dL (6.3-8.2) L 10/30/19 05:50 Albumin 2.7 g/dL (3.9-5) L 10/30/19 05:50 Albumin/Globulin Ratio 1.4 % 10/30/19 05:50 Lipase 194 units/L (13-60) H 10/25/19 09:15 TSH 3.640 mlU/mL (0.270-4.200) 10/25/19 13:30 Free T4 0.98 ng/dL (0.76-1.46) 10/25/19 13:30 Thyroxine (T4) 5.8 ug/dL (4.0-12.0) 10/25/19 13:30 Urine Color Meagan (Yellow) 10/25/19 09:03 Urine Turbidity Clear (Clear) 10/25/19 09:03 Urine pH 5.0 (5.0-7.0) 10/25/19 09:03 Ur Specific [place] 1.017 (1.003-1.030) 10/25/19 09:03 Urine Protein <15 mg/dl mg/dL (Negative) 10/25/19 09:03 Urine Glucose (UA) Neg mg/dL (Negative) 10/25/19 09:03 Urine Ketones Neg mg/dL (Negative) 10/25/19 09:03 Urine Blood Neg (Negative) 10/25/19 09:03 Urine Nitrite Neg (Negative) 10/25/19 09:03 Urine Bilirubin Neg (Negative) 10/25/19 09:03 Urine Urobilinogen < 2.0 mg/dL (<2.0) 10/25/19 09:03 Ur Leukocyte Esterase Neg (Negative) 10/25/19 09:03 Urine WBC (Auto) 3.0 /HPF (0.0-6.0) 10/25/19 09:03 Urine RBC (Auto) 1.0 /HPF (0.0-6.0) 10/25/19 09:03 Urine Mucus Few /HPF 10/25/19 09:03 Active Medications - Current Medications Current Medications: Generic Name Dose Route Start Last Admin Trade Name Freq PRN Reason Stop Dose Admin Acetaminophen 650 mg 10/25/19 11:55 10/29/19 19:36 Tylenol PO 650 mg Q4H PRN Administration Pain MILD(1-3)/Fever >100.5/SANTANA Citalopram Hydrobromide 10 mg 10/26/19 10:00 10/30/19 10:46 Celexa PO 10 mg QDAY BRAXTON Administration Folic Acid 1 mg 10/29/19 10:00 10/30/19 10:46 Folvite PO 1 mg DAILY BRAXTON Administration Levofloxacin 500 mg 10/28/19 10:00 10/30/19 10:46 Levaquin PO 500 mg Q24HR BRAXTON Administration Metronidazole 500 mg 10/28/19 14:00 10/30/19 10:46 Flagyl PO 500 mg TID BRAXTON Administration Protocol Ondansetron HCl 4 mg 10/25/19 11:55 Zofran IV Q8H PRN Nausea And Vomiting Thiamine HCl 100 mg 10/29/19 10:00 10/30/19 10:46 Vitamin B-1 PO 100 mg QDAY BRAXTON Administration Nutrition/Malnutrition Assess - Dietary Evaluation Nutrition/Malnutrition Findings: Nutrition Notes Start: 10/26/19 13:22 Freq: Status: Active Protocol: Document 10/30/19 11:27 FARHAD (Rec: 10/30/19 11:34 FARHAD [id number] [email or web address]) Nutrition Notes Initial or Follow up Reassessment Current Diagnosis Sepsis,Hypertension Other Pertinent Diagnosis Colitis, metabolic encephalopathy, dysphagia Current Diet Renal mech soft + Ensure Enlive once daily Labs/Tests Reviewed Pertinent Medications Folic acid, Thiamine Height 5 ft 6 in Weight 66 kg [place] Body Weight (kg) 59.09 BMI 23.5 Subjective/Other Information Pt pleasantly confused at time of visit. She reports fair appetite; consumed ~25% of breakfast this am, but drank ONS. She consumed 38% of last 2 recorded meals. Percent of energy/protein needs met: 55% energy 45% pro (does not include ONS) Burn Absent Trauma Absent #1 Nutrition Diagnosis Inadequate oral intake Diagnosis Progress(for reassessment Continues documentation) Is patient on ventilator? No Is Patient Ambulatory and/or Out of Bed No REE-([facility]-confined to bed) 9429.601 Calculation Used for Recommendations [facility] Additional Notes Pro needs 1-1.2g/k-79g/ day Fluid needs 1ml/kcal Nutrition Intervention Change Diet Order: Continue current diet Add Supplement/Snack (indicate name/kcal Ensure Enlive once daily ( /protein ) chocolate) Provides kCal: 350 Provides Protein (gm) 20 Goal #1 PO intake of meals plus ONS to meet at least 75% energy and pro needs Follow-Up By: 11/04/19 Additional Comments F/U: intakes (meals/ONS), wt
--- NOTE | 2019-10-30 13:44 | Gastroenterology Progress Note ---
Assessment and Plan given improving symptoms and hgb stable, more likely acute self limited etiology rather than chronic colitis which would require colonoscopy at this juncture. If patient continues to improve can discharge today with outpatient follow-up with GI GI will sign off, please call back with any questions Lexx Buckley M.D. - Patient Problems (1) Colitis Current Visit: Yes Status: Acute Subjective Date of service: 10/30/19 Principal diagnosis: ISMAEL Interval history: patient tolerating breakfast Objective - Constitutional Vitals: Temp Pulse Resp BP Pulse Ox 98.0 F 75 16 120/60 100 10/30/19 05:21 10/30/19 05:21 10/30/19 05:21 10/30/19 05:21 10/30/19 05:21 General appearance: no acute distress - EENT ENT: hearing intact - Respiratory Respiratory effort: normal - Gastrointestinal General gastrointestinal: Present: soft - Labs CBC & Chem 7: 10/30/19 05:50 10/30/19 05:50 Labs: Laboratory Results - last 24 hr 10/30/19 10/30/19 05:50 05:50 WBC 13.1 H RBC 2.73 L Hgb 9.4 L Hct 27.5 L MCV 101 H MCH 34 H MCHC 34 RDW 18.9 H Plt Count 85 L Sodium 140 Potassium 3.6 Chloride 106.6 Carbon Dioxide 18 L Anion Gap 19 BUN 13 Creatinine 0.9 Estimated GFR > 60 BUN/Creatinine Ratio 14 Glucose 87 Calcium 8.6 Total Bilirubin 0.30 AST 18 ALT 28 Alkaline Phosphatase 89 Total Protein 4.7 L Albumin 2.7 L Albumin/Globulin Ratio 1.4
[2019-10-31] MEDS: CITALOPRAM 10 MG TAB PO SCH (10:51)
[2019-10-31] MEDS: FOLIC ACID 1 MG TAB PO SCH (10:51)
[2019-10-31] MEDS: THIAMINE 100 MG TAB PO SCH (10:51)
[2019-10-31] MEDS: metroNIDAZOLE 500 MG TAB PO SCH ×3 (10:51→20:57)
[2019-10-31] MEDS: levoFLOXacin 500 MG TAB PO SCH (10:51)
--- NOTE | 2019-10-31 15:25 | Progress Note ---
Assessment and Plan Assessment and plan: Patient is a 64 yo woman with a history of ETOH abuse, Nephrolithiasis and hypertension who presented to [facility] ED for AMS. She was found stuporous in her hotel room by a friend. In the ER patient was hypothermic, confused and appeared very dehydrated. Temp 93.4F, WBC 19.7, plt 131, Na 150, K 3.1, BUN 82, Cr 2.0 * Imaging reviewed, chest x-ray and CT head no acute findings. Labs show severe metabolic acidosis and acute kidney failure with a BUN of 88 and creatinine of 2.4. * Brain MRI IMPRESSION: No acute abnormality. Chronic white matter signal change. Correlate of basal ganglia and thalamic calcifications noted. * 10/25/2019 CT abd/pelvis without contrast IMPRESSION: 1. Possible mild colonic wall thickening suggesting colitis without obvious complication 2. Distended gallbladder with general increased density no definite acute abnormality and no definite calculi seen 3. Tiny (just under 4mm) right middle lobe nodule. See below==> (Solid Nodule size* <6 mm -- Single or Multiple - Low Risk Pa tient: No routine follow-up - High Risk Patient: Optional CT at 12 months) Sepsis due to Infectious Colitis, poa; received empiric abx in ER, will continue, Hypothermia; now resolved, TSH within normal limits Hypokalemia: replete, monitor closely Metabolic acidosis and lactic acidosis; bicarb drip Acute metabolic encephalopathy; likely due to kidney failure, MRI brain ordered, ammonia levels within normal limits ISMAEL, uremia due to vasomotor nephropathy; resolved, treated with IVF, bicarb drip, Alcohol abuse per daughter, monitor for signs of withdrawal, thiamine and folate, thrombocytopenia is likely due to alcohol abuse, platelet counts 136 Moderate malnutrition, albumin of 3.2, CK 297, dietitian consulted Hypernatremia; resolved Dysphagia; speech therapy consulted, input noted to modify diet to mechanical soft with thin liquids Incidental very small Lung nodule Anemia, drop in H/H with +FOBT most likely acute anemia from GIB/colitis: Consulted GI 10/28/19: Looking back at Night Nurse's note from yesterday @ 0822, She documented one episode of black tarry foul smelling stool and unable to reach physician on Saturday night at 2200. The covering daytime nurse did not notified me yesterday as I started following patient. Will order stat CBC and stop Lovenox. Case management still trying to reach next of KIN. If H/H stable and no signs of bleeding then possible d/c tomorrow. Also ordered FOBT. Review of CT ab/pelvis shows colitis and with the knowledge of black tarry foul smelling stool with WBC 20.6, will start abx for infectious colitis. I met with abel Sommers at bedside. Patient stopped living with daughter around July and moved in with a boyfriend. Disposition: Personal long term tomorrow. Consulted GI for ?GIB, colitis 10/29/19: Diarrhea slowing up, continue levaquin/flagyl, GI note reviewed. Main issue is Urinary retention: [facility], home[facility] with [facility] and outpatient Urology follow-up. Physical Therapy recommends IRU, will see if insurance allows. We could always do [facility]/Transition home with outpatient Rehab, d/w case management 10/30/19: Doing better, h/h stable, electrolyte normal, ARF resolved, wbc decreasing, plt count still low, less diarrhea, still not eating much but drinking Boost supplemental shakes. IRU has declined her and recommend SNF, so the referral will be sent out today. I called and spoke with abel Sommers, , update given 10/31/19: Doing well, wbc continues to decrease/improve. h/h stable. Awaiting placement History Interval history: Patient was seen and examined. Follow-up on current diagnosis. Overnight uneventful as no events directly reported to me. Patient denies any chest pain, shortness breath, nausea/vomiting or severe headaches. Imaging, nursing note, chart, labs and old chart reviewed. Discussed with patient. Hospitalist Physical - Physical exam Narrative exam: Gen: unkempt, WDWN, NAD, Awake, Alert, Orientated HEENT: NCAT, alopecia, EOMI, PERRL, OP Clear Neck: supple, no adenopathy, no thyromegaly, no JVD CVS/Heart: RRR, normal S1S2, pulses present bilaterally Chest/Lungs: CTA B, Symmetrical chest expansion, good air entry bilaterally GI/Abdomen: soft, NTND, good bowel sounds, no guarding or rebound /Bladder: no suprapubic tenderness, no CVA or paraspinal tenderness Extermity/Skin: no c/c/e, no obvious rash MSK: FROM x 4 Neuro: CN 2-12 grossly intact, no new focal deficits Psych: calm - Constitutional Vitals: Temp Pulse Resp BP Pulse Ox 98.8 F 91 H 18 97/62 99 10/31/19 06:19 10/31/19 06:19 10/31/19 06:19 10/31/19 06:19 10/31/19 06:19 General appearance: Absent: mild distress Results - Labs CBC & Chem 7: 10/30/19 05:50 10/30/19 05:50 Labs: Laboratory Last Values WBC 13.1 K/mm3 (4.5-11.0) H 10/30/19 05:50 RBC 2.73 M/mm3 (3.65-5.03) L 10/30/19 05:50 Hgb 9.4 gm/dl (10.1-14.3) L 10/30/19 05:50 Hct 27.5 % (30.3-42.9) L 10/30/19 05:50 MCV 101 fl (79-97) H 10/30/19 05:50 MCH 34 pg (28-32) H 10/30/19 05:50 MCHC 34 % (30-34) 10/30/19 05:50 RDW 18.9 % (13.2-15.2) H 10/30/19 05:50 Plt Count 85 K/mm3 (140-440) L 10/30/19 05:50 Add Manual Diff Complete 10/27/19 07:59 Total Counted 100 10/27/19 07:59 Seg Neutrophils % Cutter First 10/26/19 05:21 Seg Neuts % (Manual) 89.0 % (40.0-70.0) H 10/27/19 07:59 Band Neutrophils % 0 % 10/27/19 07:59 Lymphocytes % (Manual) 6.0 % (13.4-35.0) L 10/27/19 07:59 Reactive Lymphs % (Man) 0 % 10/27/19 07:59 Monocytes % (Manual) 5.0 % (0.0-7.3) 10/27/19 07:59 Eosinophils % (Manual) 0 % (0.0-4.3) 10/27/19 07:59 Basophils % (Manual) 0 % (0.0-1.8) 10/27/19 07:59 Metamyelocytes % 0 % 10/27/19 07:59 Myelocytes % 0 % 10/27/19 07:59 Promyelocytes % 0 % 10/27/19 07:59 Blast Cells % 0 % 10/27/19 07:59 Nucleated RBC % Not Reportable 10/27/19 07:59 Seg Neutrophils # Man 18.3 K/mm3 (1.8-7.7) H 10/27/19 07:59 Band Neutrophils # 0.0 K/mm3 10/27/19 07:59 Lymphocytes # (Manual) 1.2 K/mm3 (1.2-5.4) 10/27/19 07:59 Abs React Lymphs (Man) 0.0 K/mm3 10/27/19 07:59 Monocytes # (Manual) 1.0 K/mm3 (0.0-0.8) H 10/27/19 07:59 Eosinophils # (Manual) 0.0 K/mm3 (0.0-0.4) 10/27/19 07:59 Basophils # (Manual) 0.0 K/mm3 (0.0-0.1) 10/27/19 07:59 Metamyelocytes # 0.0 K/mm3 10/27/19 07:59 Myelocytes # 0.0 K/mm3 10/27/19 07:59 Promyelocytes # 0.0 K/mm3 10/27/19 07:59 Blast Cells # 0.0 K/mm3 10/27/19 07:59 WBC Morphology Not Reportable 10/27/19 07:59 Hypersegmented Neuts Not Reportable 10/27/19 07:59 Hyposegmented Neuts Not Reportable 10/27/19 07:59 Hypogranular Neuts Not Reportable 10/27/19 07:59 Smudge Cells Not Reportable 10/27/19 07:59 Toxic Granulation Not Reportable 10/27/19 07:59 Toxic Vacuolation Not Reportable 10/27/19 07:59 Dohle Bodies Not Reportable 10/27/19 07:59 Pelger-Huet Anomaly Not Reportable 10/27/19 07:59 Boogie Rods Not Reportable 10/27/19 07:59 Platelet Estimate Consistent w auto 10/27/19 07:59 Clumped Platelets Not Reportable 10/27/19 07:59 Plt Clumps, EDTA Not Reportable 10/27/19 07:59 Large Platelets Not Reportable 10/27/19 07:59 Giant Platelets Not Reportable 10/27/19 07:59 Platelet Satelliting Not Reportable 10/27/19 07:59 Plt Morphology Comment Not Reportable 10/27/19 07:59 RBC Morphology Not Reportable 10/27/19 07:59 Dimorphic RBCs Not Reportable 10/27/19 07:59 Polychromasia Not Reportable 10/27/19 07:59 Hypochromasia Not Reportable 10/27/19 07:59 Poikilocytosis Not Reportable 10/27/19 07:59 Anisocytosis Few 10/27/19 07:59 Microcytosis Rare 10/27/19 07:59 Macrocytosis Not Reportable 10/27/19 07:59 Spherocytes Not Reportable 10/27/19 07:59 Pappenheimer Bodies Not Reportable 10/27/19 07:59 Sickle Cells Not Reportable 10/27/19 07:59 Target Cells Not Reportable 10/27/19 07:59 Tear Drop Cells Not Reportable 10/27/19 07:59 Ovalocytes Not Reportable 10/27/19 07:59 Helmet Cells Not Reportable 10/27/19 07:59 Walker-Weems Bodies Not Reportable 10/27/19 07:59 [place] Rings Not Reportable 10/27/19 07:59 [place] Cells Not Reportable 10/27/19 07:59 Bite Cells Not Reportable 10/27/19 07:59 Crenated Cell Not Reportable 10/27/19 07:59 Elliptocytes Rare 10/27/19 07:59 Acanthocytes (Spur) Not Reportable 10/27/19 07:59 Rouleaux Not Reportable 10/27/19 07:59 Hemoglobin C Crystals Not Reportable 10/27/19 07:59 Schistocytes Not Reportable 10/27/19 07:59 Malaria parasites Not Reportable 10/27/19 07:59 Albert Bodies Not Reportable 10/27/19 07:59 Hem Pathologist Commnt No 10/27/19 07:59 PT 14.0 Sec. (12.2-14.9) 10/25/19 09:15 INR 1.07 (0.87-1.13) 10/25/19 09:15 APTT 30.4 Sec. (24.2-36.6) 10/25/19 09:15 VBG pH 7.370 (7.320-7.420) 10/25/19 09:15 Sodium 140 mmol/L (137-145) 10/30/19 05:50 Potassium 3.6 mmol/L (3.6-5.0) 10/30/19 05:50 Chloride 106.6 mmol/L (98-107) 10/30/19 05:50 Carbon Dioxide 18 mmol/L (22-30) L 10/30/19 05:50 Anion Gap 19 mmol/L 10/30/19 05:50 BUN 13 mg/dL (7-17) 10/30/19 05:50 Creatinine 0.9 mg/dL (0.7-1.2) 10/30/19 05:50 Estimated GFR > 60 ml/min 10/30/19 05:50 BUN/Creatinine Ratio 14 % 10/30/19 05:50 Glucose 87 mg/dL (65-100) 10/30/19 05:50 POC Glucose 113 (70-105) H 10/27/19 20:59 Lactic Acid 1.60 mmol/L (0.7-2.0) 10/25/19 16:02 Calcium 8.6 mg/dL (8.4-10.2) 10/30/19 05:50 Phosphorus 2.20 mg/dL (2.5-4.5) L D 10/27/19 07:59 Magnesium 2.30 mg/dL (1.7-2.3) 10/27/19 07:59 Total Bilirubin 0.30 mg/dL (0.1-1.2) 10/30/19 05:50 Direct Bilirubin < 0.2 mg/dL (0-0.2) 10/25/19 09:15 AST 18 units/L (5-40) 10/30/19 05:50 ALT 28 units/L (7-56) 10/30/19 05:50 Alkaline Phosphatase 89 units/L (35-129) 10/30/19 05:50 Ammonia 33.0 umol/L (25-60) 10/26/19 11:20 Total Creatine Kinase 297 units/L (30-135) H 10/25/19 09:15 CK-MB (CK-2) 5.5 ng/mL (0.0-4.0) H 10/25/19 09:15 CK-MB (CK-2) Rel Index 1.8 (0-4) 10/25/19 09:15 Troponin T < 0.010 ng/mL (0.00-0.029) 10/25/19 09:15 NT-Pro-B Natriuret Pep 806.3 pg/mL (0-900) 10/25/19 09:15 Total Protein 4.7 g/dL (6.3-8.2) L 10/30/19 05:50 Albumin 2.7 g/dL (3.9-5) L 10/30/19 05:50 Albumin/Globulin Ratio 1.4 % 10/30/19 05:50 Lipase 194 units/L (13-60) H 10/25/19 09:15 TSH 3.640 mlU/mL (0.270-4.200) 10/25/19 13:30 Free T4 0.98 ng/dL (0.76-1.46) 10/25/19 13:30 Thyroxine (T4) 5.8 ug/dL (4.0-12.0) 10/25/19 13:30 Urine Color Meagan (Yellow) 10/25/19 09:03 Urine Turbidity Clear (Clear) 10/25/19 09:03 Urine pH 5.0 (5.0-7.0) 10/25/19 09:03 Ur Specific [place] 1.017 (1.003-1.030) 10/25/19 09:03 Urine Protein <15 mg/dl mg/dL (Negative) 10/25/19 09:03 Urine Glucose (UA) Neg mg/dL (Negative) 10/25/19 09:03 Urine Ketones Neg mg/dL (Negative) 10/25/19 09:03 Urine Blood Neg (Negative) 10/25/19 09:03 Urine Nitrite Neg (Negative) 10/25/19 09:03 Urine Bilirubin Neg (Negative) 10/25/19 09:03 Urine Urobilinogen < 2.0 mg/dL (<2.0) 10/25/19 09:03 Ur Leukocyte Esterase Neg (Negative) 10/25/19 09:03 Urine WBC (Auto) 3.0 /HPF (0.0-6.0) 10/25/19 09:03 Urine RBC (Auto) 1.0 /HPF (0.0-6.0) 10/25/19 09:03 Urine Mucus Few /HPF 10/25/19 09:03 Active Medications - Current Medications Current Medications: Generic Name Dose Route Start Last Admin Trade Name Freq PRN Reason Stop Dose Admin Acetaminophen 650 mg 10/25/19 11:55 10/29/19 19:36 Tylenol PO 650 mg Q4H PRN Administration Pain MILD(1-3)/Fever >100.5/SANTANA Citalopram Hydrobromide 10 mg 10/26/19 10:00 10/31/19 10:51 Celexa PO 10 mg QDAY BRAXTON Administration Folic Acid 1 mg 10/29/19 10:00 10/31/19 10:51 Folvite PO 1 mg DAILY BRAXTON Administration Levofloxacin 500 mg 10/28/19 10:00 10/31/19 10:51 Levaquin PO 500 mg Q24HR BRAXTON Administration Metronidazole 500 mg 10/28/19 14:00 10/31/19 14:54 Flagyl PO 500 mg TID BRAXTON Administration Protocol Ondansetron HCl 4 mg 10/25/19 11:55 Zofran IV Q8H PRN Nausea And Vomiting Thiamine HCl 100 mg 10/29/19 10:00 10/31/19 10:51 Vitamin B-1 PO 100 mg QDAY BRAXTON Administration Nutrition/Malnutrition Assess - Dietary Evaluation Nutrition/Malnutrition Findings: Nutrition Notes Start: 10/26/19 13:22 Freq: Status: Active Protocol: Document 10/30/19 11:27 FARHAD (Rec: 10/30/19 11:34 FARHAD [id number] [email or web address]) Nutrition Notes Initial or Follow up Reassessment Current Diagnosis Sepsis,Hypertension Other Pertinent Diagnosis Colitis, metabolic encephalopathy, dysphagia Current Diet Renal mech soft + Ensure Enlive once daily Labs/Tests Reviewed Pertinent Medications Folic acid, Thiamine Height 5 ft 6 in Weight 66 kg [place] Body Weight (kg) 59.09 BMI 23.5 Subjective/Other Information Pt pleasantly confused at time of visit. She reports fair appetite; consumed ~25% of breakfast this am, but drank ONS. She consumed 38% of last 2 recorded meals. Percent of energy/protein needs met: 55% energy 45% pro (does not include ONS) Burn Absent Trauma Absent #1 Nutrition Diagnosis Inadequate oral intake Diagnosis Progress(for reassessment Continues documentation) Is patient on ventilator? No Is Patient Ambulatory and/or Out of Bed No REE-([facility]-confined to bed) [phone] Calculation Used for Recommendations [facility] Additional Notes Pro needs 1-1.2g/k-79g/ day Fluid needs 1ml/kcal Nutrition Intervention Change Diet Order: Continue current diet Add Supplement/Snack (indicate name/kcal Ensure Enlive once daily ( /protein ) chocolate) Provides kCal: 350 Provides Protein (gm) 20 Goal #1 PO intake of meals plus ONS to meet at least 75% energy and pro needs Follow-Up By: 11/04/19 Additional Comments F/U: intakes (meals/ONS), wt
[2019-11-01] MEDS: CITALOPRAM 10 MG TAB PO SCH (10:16)
[2019-11-01] MEDS: FOLIC ACID 1 MG TAB PO SCH (10:16)
[2019-11-01] MEDS: levoFLOXacin 500 MG TAB PO SCH (10:16)
[2019-11-01] MEDS: metroNIDAZOLE 500 MG TAB PO SCH ×3 (10:16→21:22)
[2019-11-01] MEDS: THIAMINE 100 MG TAB PO SCH (10:16)
--- NOTE | 2019-11-01 14:54 | Progress Note ---
Assessment and Plan Assessment and plan: Patient is a 64 yo woman with a history of ETOH abuse, Nephrolithiasis and hypertension who presented to [facility] ED for AMS. She was found stuporous in her hotel room by a friend. In the ER patient was hypothermic, confused and appeared very dehydrated. Temp 93.4F, WBC 19.7, plt 131, Na 150, K 3.1, BUN 82, Cr 2.0 * Imaging reviewed, chest x-ray and CT head no acute findings. Labs show severe metabolic acidosis and acute kidney failure with a BUN of 88 and creatinine of 2.4. * Brain MRI IMPRESSION: No acute abnormality. Chronic white matter signal change. Correlate of basal ganglia and thalamic calcifications noted. * 10/25/2019 CT abd/pelvis without contrast IMPRESSION: 1. Possible mild colonic wall thickening suggesting colitis without obvious complication 2. Distended gallbladder with general increased density no definite acute abnormality and no definite calculi seen 3. Tiny (just under 4mm) right middle lobe nodule. See below==> (Solid Nodule size* <6 mm -- Single or Multiple - Low Risk Pa tient: No routine follow-up - High Risk Patient: Optional CT at 12 months) Sepsis due to Infectious Colitis, poa; received empiric abx in ER, will continue, Hypothermia; now resolved, TSH within normal limits Hypokalemia: replete, monitor closely Metabolic acidosis and lactic acidosis; bicarb drip Acute metabolic encephalopathy; likely due to kidney failure, MRI brain ordered, ammonia levels within normal limits ISMAEL, uremia due to vasomotor nephropathy; resolved, treated with IVF, bicarb drip, Alcohol abuse per daughter, monitor for signs of withdrawal, thiamine and folate, thrombocytopenia is likely due to alcohol abuse, platelet counts 136 Moderate malnutrition, albumin of 3.2, CK 297, dietitian consulted Hypernatremia; resolved Dysphagia; speech therapy consulted, input noted to modify diet to mechanical soft with thin liquids Incidental very small Lung nodule Anemia, drop in H/H with +FOBT most likely acute anemia from GIB/colitis: Consulted GI 10/28/19: Looking back at Night Nurse's note from yesterday @ 0822, She documented one episode of black tarry foul smelling stool and unable to reach physician on Saturday night at 2200. The covering daytime nurse did not notified me yesterday as I started following patient. Will order stat CBC and stop Lovenox. Case management still trying to reach next of KIN. If H/H stable and no signs of bleeding then possible d/c tomorrow. Also ordered FOBT. Review of CT ab/pelvis shows colitis and with the knowledge of black tarry foul smelling stool with WBC 20.6, will start abx for infectious colitis. I met with abel Sommers at bedside. Patient stopped living with daughter around July and moved in with a boyfriend. Disposition: Personal long-term tomorrow. Consulted GI for ?GIB, colitis 10/29/19: Diarrhea slowing up, continue levaquin/flagyl, GI note reviewed. Main issue is Urinary retention: [facility], home[facility] with [facility] and outpatient Urology follow-up. Physical Therapy recommends IRU, will see if insurance allows. We could always do [facility]/Transition home with outpatient Rehab, d/w case management 10/30/19: Doing better, h/h stable, electrolyte normal, ARF resolved, wbc decreasing, plt count still low, less diarrhea, still not eating much but drinking Boost supplemental shakes. IRU has declined her and recommend SNF, so the referral will be sent out today. I called and spoke with abel Sommers, , update given 10/31/19: Doing well, wbc continues to decrease/improve. h/h stable. Awaiting placement 11/01/19: She is still not eating much. She is fixated on surgery (colonoscopy) which will be done outpatient per GI. Awaiting SNF placement History Interval history: Patient was seen and examined. Follow-up on current diagnosis. Overnight uneventful as no events directly reported to me. Patient denies any chest pain, shortness breath, nausea/vomiting or severe headaches. Imaging, nursing note, chart, labs and old chart reviewed. Discussed with patient. Hospitalist Physical - Physical exam Narrative exam: Gen: unkempt, WDWN, NAD, Awake, Alert, Orientated HEENT: NCAT, alopecia, EOMI, PERRL, OP Clear Neck: supple, no adenopathy, no thyromegaly, no JVD CVS/Heart: RRR, normal S1S2, pulses present bilaterally Chest/Lungs: CTA B, Symmetrical chest expansion, good air entry bilaterally GI/Abdomen: soft, NTND, good bowel sounds, no guarding or rebound /Bladder: no suprapubic tenderness, no CVA or paraspinal tenderness Extermity/Skin: no c/c/e, no obvious rash MSK: FROM x 4 Neuro: CN 2-12 grossly intact, no new focal deficits Psych: calm - Constitutional Vitals: Temp Pulse Resp BP Pulse Ox 98.5 F 102 H 16 111/66 99 11/01/19 04:49 11/01/19 14:24 11/01/19 04:49 11/01/19 04:49 11/01/19 04:49 General appearance: Absent: mild distress Results - Labs CBC & Chem 7: 10/30/19 05:50 10/30/19 05:50 Labs: Laboratory Last Values WBC 13.1 K/mm3 (4.5-11.0) H 10/30/19 05:50 RBC 2.73 M/mm3 (3.65-5.03) L 10/30/19 05:50 Hgb 9.4 gm/dl (10.1-14.3) L 10/30/19 05:50 Hct 27.5 % (30.3-42.9) L 10/30/19 05:50 MCV 101 fl (79-97) H 10/30/19 05:50 MCH 34 pg (28-32) H 10/30/19 05:50 MCHC 34 % (30-34) 10/30/19 05:50 RDW 18.9 % (13.2-15.2) H 10/30/19 05:50 Plt Count 85 K/mm3 (140-440) L 10/30/19 05:50 Add Manual Diff Complete 10/27/19 07:59 Total Counted 100 10/27/19 07:59 Seg Neutrophils % Cvt Tech 10/26/19 05:21 Seg Neuts % (Manual) 89.0 % (40.0-70.0) H 10/27/19 07:59 Band Neutrophils % 0 % 10/27/19 07:59 Lymphocytes % (Manual) 6.0 % (13.4-35.0) L 10/27/19 07:59 Reactive Lymphs % (Man) 0 % 10/27/19 07:59 Monocytes % (Manual) 5.0 % (0.0-7.3) 10/27/19 07:59 Eosinophils % (Manual) 0 % (0.0-4.3) 10/27/19 07:59 Basophils % (Manual) 0 % (0.0-1.8) 10/27/19 07:59 Metamyelocytes % 0 % 10/27/19 07:59 Myelocytes % 0 % 10/27/19 07:59 Promyelocytes % 0 % 10/27/19 07:59 Blast Cells % 0 % 10/27/19 07:59 Nucleated RBC % Not Reportable 10/27/19 07:59 Seg Neutrophils # Man 18.3 K/mm3 (1.8-7.7) H 10/27/19 07:59 Band Neutrophils # 0.0 K/mm3 10/27/19 07:59 Lymphocytes # (Manual) 1.2 K/mm3 (1.2-5.4) 10/27/19 07:59 Abs React Lymphs (Man) 0.0 K/mm3 10/27/19 07:59 Monocytes # (Manual) 1.0 K/mm3 (0.0-0.8) H 10/27/19 07:59 Eosinophils # (Manual) 0.0 K/mm3 (0.0-0.4) 10/27/19 07:59 Basophils # (Manual) 0.0 K/mm3 (0.0-0.1) 10/27/19 07:59 Metamyelocytes # 0.0 K/mm3 10/27/19 07:59 Myelocytes # 0.0 K/mm3 10/27/19 07:59 Promyelocytes # 0.0 K/mm3 10/27/19 07:59 Blast Cells # 0.0 K/mm3 10/27/19 07:59 WBC Morphology Not Reportable 10/27/19 07:59 Hypersegmented Neuts Not Reportable 10/27/19 07:59 Hyposegmented Neuts Not Reportable 10/27/19 07:59 Hypogranular Neuts Not Reportable 10/27/19 07:59 Smudge Cells Not Reportable 10/27/19 07:59 Toxic Granulation Not Reportable 10/27/19 07:59 Toxic Vacuolation Not Reportable 10/27/19 07:59 Dohle Bodies Not Reportable 10/27/19 07:59 Pelger-Huet Anomaly Not Reportable 10/27/19 07:59 Boogie Rods Not Reportable 10/27/19 07:59 Platelet Estimate Consistent w auto 10/27/19 07:59 Clumped Platelets Not Reportable 10/27/19 07:59 Plt Clumps, EDTA Not Reportable 10/27/19 07:59 Large Platelets Not Reportable 10/27/19 07:59 Giant Platelets Not Reportable 10/27/19 07:59 Platelet Satelliting Not Reportable 10/27/19 07:59 Plt Morphology Comment Not Reportable 10/27/19 07:59 RBC Morphology Not Reportable 10/27/19 07:59 Dimorphic RBCs Not Reportable 10/27/19 07:59 Polychromasia Not Reportable 10/27/19 07:59 Hypochromasia Not Reportable 10/27/19 07:59 Poikilocytosis Not Reportable 10/27/19 07:59 Anisocytosis Few 10/27/19 07:59 Microcytosis Rare 10/27/19 07:59 Macrocytosis Not Reportable 10/27/19 07:59 Spherocytes Not Reportable 10/27/19 07:59 Pappenheimer Bodies Not Reportable 10/27/19 07:59 Sickle Cells Not Reportable 10/27/19 07:59 Target Cells Not Reportable 10/27/19 07:59 Tear Drop Cells Not Reportable 10/27/19 07:59 Ovalocytes Not Reportable 10/27/19 07:59 Helmet Cells Not Reportable 10/27/19 07:59 Walker-Wells Bodies Not Reportable 10/27/19 07:59 [place] Rings Not Reportable 10/27/19 07:59 Teddy Cells Not Reportable 10/27/19 07:59 Bite Cells Not Reportable 10/27/19 07:59 Crenated Cell Not Reportable 10/27/19 07:59 Elliptocytes Rare 10/27/19 07:59 Acanthocytes (Spur) Not Reportable 10/27/19 07:59 Rouleaux Not Reportable 10/27/19 07:59 Hemoglobin C Crystals Not Reportable 10/27/19 07:59 Schistocytes Not Reportable 10/27/19 07:59 Malaria parasites Not Reportable 10/27/19 07:59 Albert Bodies Not Reportable 10/27/19 07:59 Hem Pathologist Commnt No 10/27/19 07:59 PT 14.0 Sec. (12.2-14.9) 10/25/19 09:15 INR 1.07 (0.87-1.13) 10/25/19 09:15 APTT 30.4 Sec. (24.2-36.6) 10/25/19 09:15 VBG pH 7.370 (7.320-7.420) 10/25/19 09:15 Sodium 140 mmol/L (137-145) 10/30/19 05:50 Potassium 3.6 mmol/L (3.6-5.0) 10/30/19 05:50 Chloride 106.6 mmol/L (98-107) 10/30/19 05:50 Carbon Dioxide 18 mmol/L (22-30) L 10/30/19 05:50 Anion Gap 19 mmol/L 10/30/19 05:50 BUN 13 mg/dL (7-17) 10/30/19 05:50 Creatinine 0.9 mg/dL (0.7-1.2) 10/30/19 05:50 Estimated GFR > 60 ml/min 10/30/19 05:50 BUN/Creatinine Ratio 14 % 10/30/19 05:50 Glucose 87 mg/dL (65-100) 10/30/19 05:50 POC Glucose 113 (70-105) H 10/27/19 20:59 Lactic Acid 1.60 mmol/L (0.7-2.0) 10/25/19 16:02 Calcium 8.6 mg/dL (8.4-10.2) 10/30/19 05:50 Phosphorus 2.20 mg/dL (2.5-4.5) L D 10/27/19 07:59 Magnesium 2.30 mg/dL (1.7-2.3) 10/27/19 07:59 Total Bilirubin 0.30 mg/dL (0.1-1.2) 10/30/19 05:50 Direct Bilirubin < 0.2 mg/dL (0-0.2) 10/25/19 09:15 AST 18 units/L (5-40) 10/30/19 05:50 ALT 28 units/L (7-56) 10/30/19 05:50 Alkaline Phosphatase 89 units/L (35-129) 10/30/19 05:50 Ammonia 33.0 umol/L (25-60) 10/26/19 11:20 Total Creatine Kinase 297 units/L (30-135) H 10/25/19 09:15 CK-MB (CK-2) 5.5 ng/mL (0.0-4.0) H 10/25/19 09:15 CK-MB (CK-2) Rel Index 1.8 (0-4) 10/25/19 09:15 Troponin T < 0.010 ng/mL (0.00-0.029) 10/25/19 09:15 NT-Pro-B Natriuret Pep 806.3 pg/mL (0-900) 10/25/19 09:15 Total Protein 4.7 g/dL (6.3-8.2) L 10/30/19 05:50 Albumin 2.7 g/dL (3.9-5) L 10/30/19 05:50 Albumin/Globulin Ratio 1.4 % 10/30/19 05:50 Lipase 194 units/L (13-60) H 10/25/19 09:15 TSH 3.640 mlU/mL (0.270-4.200) 10/25/19 13:30 Free T4 0.98 ng/dL (0.76-1.46) 10/25/19 13:30 Thyroxine (T4) 5.8 ug/dL (4.0-12.0) 10/25/19 13:30 Urine Color Meagan (Yellow) 10/25/19 09:03 Urine Turbidity Clear (Clear) 10/25/19 09:03 Urine pH 5.0 (5.0-7.0) 10/25/19 09:03 Ur Specific [place] 1.017 (1.003-1.030) 10/25/19 09:03 Urine Protein <15 mg/dl mg/dL (Negative) 10/25/19 09:03 Urine Glucose (UA) Neg mg/dL (Negative) 10/25/19 09:03 Urine Ketones Neg mg/dL (Negative) 10/25/19 09:03 Urine Blood Neg (Negative) 10/25/19 09:03 Urine Nitrite Neg (Negative) 10/25/19 09:03 Urine Bilirubin Neg (Negative) 10/25/19 09:03 Urine Urobilinogen < 2.0 mg/dL (<2.0) 10/25/19 09:03 Ur Leukocyte Esterase Neg (Negative) 10/25/19 09:03 Urine WBC (Auto) 3.0 /HPF (0.0-6.0) 10/25/19 09:03 Urine RBC (Auto) 1.0 /HPF (0.0-6.0) 10/25/19 09:03 Urine Mucus Few /HPF 10/25/19 09:03 Active Medications - Current Medications Current Medications: Generic Name Dose Route Start Last Admin Trade Name Freq PRN Reason Stop Dose Admin Acetaminophen 650 mg 10/25/19 11:55 10/29/19 19:36 Tylenol PO 650 mg Q4H PRN Administration Pain MILD(1-3)/Fever >100.5/SANTANA Citalopram Hydrobromide 10 mg 10/26/19 10:00 11/01/19 10:16 Celexa PO 10 mg QDAY BRAXTON Administration Folic Acid 1 mg 10/29/19 10:00 11/01/19 10:16 Folvite PO 1 mg DAILY BRAXTON Administration Levofloxacin 500 mg 10/28/19 10:00 11/01/19 10:16 Levaquin PO 500 mg Q24HR BRAXTON Administration Metronidazole 500 mg 10/28/19 14:00 11/01/19 13:36 Flagyl PO 500 mg TID BRAXTON Administration Protocol Ondansetron HCl 4 mg 10/25/19 11:55 Zofran IV Q8H PRN Nausea And Vomiting Thiamine HCl 100 mg 10/29/19 10:00 11/01/19 10:16 Vitamin B-1 PO 100 mg QDAY BRAXTON Administration Nutrition/Malnutrition Assess - Dietary Evaluation Nutrition/Malnutrition Findings: Nutrition Notes Start: 10/26/19 13: 22 Freq: Status: Active Protocol: Document 10/30/19 11:27 FARHAD (Rec: 10/30/19 11:34 FARHAD [id number] [email or web address]) Nutrition Notes Initial or Follow up Reassessment Current Diagnosis Sepsis,Hypertension Other Pertinent Diagnosis Colitis, metabolic encephalopathy, dysphagia Current Diet Renal mech soft + Ensure Enlive once daily Labs/Tests Reviewed Pertinent Medications Folic acid, Thiamine Height 5 ft 6 in Weight 66 kg [place] Body Weight (kg) 59.09 BMI 23.5 Subjective/Other Information Pt pleasantly confused at time of visit. She reports fair appetite; consumed ~25% of breakfast this am, but drank ONS. She consumed 38% of last 2 recorded meals. Percent of energy/protein needs met: 55% energy 45% pro (does not include ONS) Burn Absent Trauma Absent #1 Nutrition Diagnosis Inadequate oral intake Diagnosis Progress(for reassessment Continues documentation) Is patient on ventilator? No Is Patient Ambulatory and/or Out of Bed No REE-([facility]-confined to bed) 2849.069 Calculation Used for Recommendations [facility] Additional Notes Pro needs 1-1.2g/k-79g/ day Fluid needs 1ml/kcal Nutrition Intervention Change Diet Order: Continue current diet Add Supplement/Snack (indicate name/kcal Ensure Enlive once daily ( /protein ) chocolate) Provides kCal: 350 Provides Protein (gm) 20 Goal #1 PO intake of meals plus ONS to meet at least 75% energy and pro needs Follow-Up By: 11/04/19 Additional Comments F/U: intakes (meals/ONS), wt
[2019-11-02] MEDS: levoFLOXacin 500 MG TAB PO SCH (09:39)
[2019-11-02] MEDS: metroNIDAZOLE 500 MG TAB PO SCH ×3 (09:39→21:22)
[2019-11-02] MEDS: FOLIC ACID 1 MG TAB PO SCH (09:39)
[2019-11-02] MEDS: CITALOPRAM 10 MG TAB PO SCH (09:40)
[2019-11-02] MEDS: THIAMINE 100 MG TAB PO SCH (09:40)
--- NOTE | 2019-11-02 10:08 | Progress Note ---
Assessment and Plan Assessment and plan: Patient is a 64 yo woman with a history of ETOH abuse, Nephrolithiasis and hypertension who presented to [facility] ED for AMS. She was found stuporous in her hotel room by a friend. In the ER patient was hypothermic, confused and appeared very dehydrated. Temp 93.4F, WBC 19.7, plt 131, Na 150, K 3.1, BUN 82, Cr 2.0 * Imaging reviewed, chest x-ray and CT head no acute findings. Labs show severe metabolic acidosis and acute kidney failure with a BUN of 88 and creatinine of 2.4. * Brain MRI IMPRESSION: No acute abnormality. Chronic white matter signal change. Correlate of basal ganglia and thalamic calcifications noted. * 10/25/2019 CT abd/pelvis without contrast IMPRESSION: 1. Possible mild colonic wall thickening suggesting colitis without obvious complication 2. Distended gallbladder with general increased density no definite acute abnormality and no definite calculi seen 3. Tiny (just under 4mm) right middle lobe nodule. See below==> (Solid Nodule size* <6 mm -- Single or Multiple - Low Risk Pa tient: No routine follow-up - High Risk Patient: Optional CT at 12 months) Sepsis due to Infectious Colitis, poa; received empiric abx in ER, will continue, Hypothermia; now resolved, TSH within normal limits Hypokalemia: replete, monitor closely Metabolic acidosis and lactic acidosis; bicarb drip Acute metabolic encephalopathy; likely due to kidney failure, MRI brain ordered, ammonia levels within normal limits ISMAEL, uremia due to vasomotor nephropathy; resolved, treated with IVF, bicarb drip, Alcohol abuse per daughter, monitor for signs of withdrawal, thiamine and folate, thrombocytopenia is likely due to alcohol abuse, platelet counts 136 Moderate malnutrition, albumin of 3.2, CK 297, dietitian consulted Hypernatremia; resolved Dysphagia; speech therapy consulted, input noted to modify diet to mechanical soft with thin liquids Incidental very small Lung nodule Anemia, drop in H/H with +FOBT most likely acute anemia from GIB/colitis: Consulted GI 10/28/19: Looking back at Night Nurse's note from yesterday @ 0822, She documented one episode of black tarry foul smelling stool and unable to reach physician on Saturday night at 2200. The covering daytime nurse did not notified me yesterday as I started following patient. Will order stat CBC and stop Lovenox. Case management still trying to reach next of [facility]. If H/H stable and no signs of bleeding then possible d/c tomorrow. Also ordered FOBT. Review of CT ab/pelvis shows colitis and with the knowledge of black tarry foul smelling stool with WBC 20.6, will start abx for infectious colitis. I met with abel Sommers at bedside. Patient stopped living with daughter around July and moved in with a boyfriend. Disposition: Personal chcf tomorrow. Consulted GI for ?GIB, colitis 10/29/19: Diarrhea slowing up, continue levaquin/flagyl, GI note reviewed. Main issue is Urinary retention: [facility], home[facility] with [facility] and outpatient Urology follow-up. Physical Therapy recommends IRU, will see if insurance allows. We could always do [facility]/Transition home with outpatient Rehab, d/w case management 10/30/19: Doing better, h/h stable, electrolyte normal, ARF resolved, wbc decreasing, plt count still low, less diarrhea, still not eating much but drinking Boost supplemental shakes. IRU has declined her and recommend SNF, so the referral will be sent out today. I called and spoke with abel Sommers, , update given 10/31/19: Doing well, wbc continues to decrease/improve. h/h stable. Awaiting placement 11/01/19: She is still not eating much. She is fixated on surgery (colonoscopy) which will be done outpatient per GI. Awaiting SNF placement 11/02/19: Awaiting placement History Interval history: Patient was seen and examined. Follow-up on current diagnosis. Overnight uneventful as no events directly reported to me. Patient denies any chest pain, shortness breath, nausea/vomiting or severe headaches. Imaging, nursing note, chart, labs and old chart reviewed. Discussed with patient. Hospitalist Physical - Physical exam Narrative exam: Gen: unkempt, WDWN, NAD, Awake, Alert, Orientated HEENT: NCAT, alopecia, EOMI, PERRL, OP Clear Neck: supple, no adenopathy, no thyromegaly, no JVD CVS/Heart: RRR, normal S1S2, pulses present bilaterally Chest/Lungs: CTA B, Symmetrical chest expansion, good air entry bilaterally GI/Abdomen: soft, NTND, good bowel sounds, no guarding or rebound /Bladder: no suprapubic tenderness, no CVA or paraspinal tenderness Extermity/Skin: no c/c/e, no obvious rash MSK: FROM x 4 Neuro: CN 2-12 grossly intact, no new focal deficits Psych: calm - Constitutional Vitals: Temp Pulse Resp BP Pulse Ox 99.5 F 101 H 20 118/75 96 11/02/19 04:52 11/02/19 04:52 11/02/19 04:52 11/02/19 04:52 11/02/19 04:52 General appearance: Absent: mild distress Results - Labs CBC & Chem 7: 10/30/19 05:50 10/30/19 05:50 Labs: Laboratory Last Values WBC 13.1 K/mm3 (4.5-11.0) H 10/30/19 05:50 RBC 2.73 M/mm3 (3.65-5.03) L 10/30/19 05:50 Hgb 9.4 gm/dl (10.1-14.3) L 10/30/19 05:50 Hct 27.5 % (30.3-42.9) L 10/30/19 05:50 MCV 101 fl (79-97) H 10/30/19 05:50 MCH 34 pg (28-32) H 10/30/19 05:50 MCHC 34 % (30-34) 10/30/19 05:50 RDW 18.9 % (13.2-15.2) H 10/30/19 05:50 Plt Count 85 K/mm3 (140-440) L 10/30/19 05:50 Add Manual Diff Complete 10/27/19 07:59 Total Counted 100 10/27/19 07:59 Seg Neutrophils % Chlorine Cells Operator 10/26/19 05:21 Seg Neuts % (Manual) 89.0 % (40.0-70.0) H 10/27/19 07:59 Band Neutrophils % 0 % 10/27/19 07:59 Lymphocytes % (Manual) 6.0 % (13.4-35.0) L 10/27/19 07:59 Reactive Lymphs % (Man) 0 % 10/27/19 07:59 Monocytes % (Manual) 5.0 % (0.0-7.3) 10/27/19 07:59 Eosinophils % (Manual) 0 % (0.0-4.3) 10/27/19 07:59 Basophils % (Manual) 0 % (0.0-1.8) 10/27/19 07:59 Metamyelocytes % 0 % 10/27/19 07:59 Myelocytes % 0 % 10/27/19 07:59 Promyelocytes % 0 % 10/27/19 07:59 Blast Cells % 0 % 10/27/19 07:59 Nucleated RBC % Not Reportable 10/27/19 07:59 Seg Neutrophils # Man 18.3 K/mm3 (1.8-7.7) H 10/27/19 07:59 Band Neutrophils # 0.0 K/mm3 10/27/19 07:59 Lymphocytes # (Manual) 1.2 K/mm3 (1.2-5.4) 10/27/19 07:59 Abs React Lymphs (Man) 0.0 K/mm3 10/27/19 07:59 Monocytes # (Manual) 1.0 K/mm3 (0.0-0.8) H 10/27/19 07:59 Eosinophils # (Manual) 0.0 K/mm3 (0.0-0.4) 10/27/19 07:59 Basophils # (Manual) 0.0 K/mm3 (0.0-0.1) 10/27/19 07:59 Metamyelocytes # 0.0 K/mm3 10/27/19 07:59 Myelocytes # 0.0 K/mm3 10/27/19 07:59 Promyelocytes # 0.0 K/mm3 10/27/19 07:59 Blast Cells # 0.0 K/mm3 10/27/19 07:59 WBC Morphology Not Reportable 10/27/19 07:59 Hypersegmented Neuts Not Reportable 10/27/19 07:59 Hyposegmented Neuts Not Reportable 10/27/19 07:59 Hypogranular Neuts Not Reportable 10/27/19 07:59 Smudge Cells Not Reportable 10/27/19 07:59 Toxic Granulation Not Reportable 10/27/19 07:59 Toxic Vacuolation Not Reportable 10/27/19 07:59 Dohle Bodies Not Reportable 10/27/19 07:59 Pelger-Huet Anomaly Not Reportable 10/27/19 07:59 Boogie Rods Not Reportable 10/27/19 07:59 Platelet Estimate Consistent w auto 10/27/19 07:59 Clumped Platelets Not Reportable 10/27/19 07:59 Plt Clumps, EDTA Not Reportable 10/27/19 07:59 Large Platelets Not Reportable 10/27/19 07:59 Giant Platelets Not Reportable 10/27/19 07:59 Platelet Satelliting Not Reportable 10/27/19 07:59 Plt Morphology Comment Not Reportable 10/27/19 07:59 RBC Morphology Not Reportable 10/27/19 07:59 Dimorphic RBCs Not Reportable 10/27/19 07:59 Polychromasia Not Reportable 10/27/19 07:59 Hypochromasia Not Reportable 10/27/19 07:59 Poikilocytosis Not Reportable 10/27/19 07:59 Anisocytosis Few 10/27/19 07:59 Microcytosis Rare 10/27/19 07:59 Macrocytosis Not Reportable 10/27/19 07:59 Spherocytes Not Reportable 10/27/19 07:59 Pappenheimer Bodies Not Reportable 10/27/19 07:59 Sickle Cells Not Reportable 10/27/19 07:59 Target Cells Not Reportable 10/27/19 07:59 Tear Drop Cells Not Reportable 10/27/19 07:59 Ovalocytes Not Reportable 10/27/19 07:59 Helmet Cells Not Reportable 10/27/19 07:59 Walker-Narciso Pena Bodies Not Reportable 10/27/19 07:59 Fallon Rings Not Reportable 10/27/19 07:59 Teddy Cells Not Reportable 10/27/19 07:59 Bite Cells Not Reportable 10/27/19 07:59 Crenated Cell Not Reportable 10/27/19 07:59 Elliptocytes Rare 10/27/19 07:59 Acanthocytes (Spur) Not Reportable 10/27/19 07:59 Rouleaux Not Reportable 10/27/19 07:59 Hemoglobin C Crystals Not Reportable 10/27/19 07:59 Schistocytes Not Reportable 10/27/19 07:59 Malaria parasites Not Reportable 10/27/19 07:59 Albert Bodies Not Reportable 10/27/19 07:59 Hem Pathologist Commnt No 10/27/19 07:59 PT 14.0 Sec. (12.2-14.9) 10/25/19 09:15 INR 1.07 (0.87-1.13) 10/25/19 09:15 APTT 30.4 Sec. (24.2-36.6) 10/25/19 09:15 VBG pH 7.370 (7.320-7.420) 10/25/19 09:15 Sodium 140 mmol/L (137-145) 10/30/19 05:50 Potassium 3.6 mmol/L (3.6-5.0) 10/30/19 05:50 Chloride 106.6 mmol/L (98-107) 10/30/19 05:50 Carbon Dioxide 18 mmol/L (22-30) L 10/30/19 05:50 Anion Gap 19 mmol/L 10/30/19 05:50 BUN 13 mg/dL (7-17) 10/30/19 05:50 Creatinine 0.9 mg/dL (0.7-1.2) 10/30/19 05:50 Estimated GFR > 60 ml/min 10/30/19 05:50 BUN/Creatinine Ratio 14 % 10/30/19 05:50 Glucose 87 mg/dL (65-100) 10/30/19 05:50 POC Glucose 113 (70-105) H 10/27/19 20:59 Lactic Acid 1.60 mmol/L (0.7-2.0) 10/25/19 16:02 Calcium 8.6 mg/dL (8.4-10.2) 10/30/19 05:50 Phosphorus 2.20 mg/dL (2.5-4.5) L D 10/27/19 07:59 Magnesium 2.30 mg/dL (1.7-2.3) 10/27/19 07:59 Total Bilirubin 0.30 mg/dL (0.1-1.2) 10/30/19 05:50 Direct Bilirubin < 0.2 mg/dL (0-0.2) 10/25/19 09:15 AST 18 units/L (5-40) 10/30/19 05:50 ALT 28 units/L (7-56) 10/30/19 05:50 Alkaline Phosphatase 89 units/L (35-129) 10/30/19 05:50 Ammonia 33.0 umol/L (25-60) 10/26/19 11:20 Total Creatine Kinase 297 units/L (30-135) H 10/25/19 09:15 CK-MB (CK-2) 5.5 ng/mL (0.0-4.0) H 10/25/19 09:15 CK-MB (CK-2) Rel Index 1.8 (0-4) 10/25/19 09:15 Troponin T < 0.010 ng/mL (0.00-0.029) 10/25/19 09:15 NT-Pro-B Natriuret Pep 806.3 pg/mL (0-900) 10/25/19 09:15 Total Protein 4.7 g/dL (6.3-8.2) L 10/30/19 05:50 Albumin 2.7 g/dL (3.9-5) L 10/30/19 05:50 Albumin/Globulin Ratio 1.4 % 10/30/19 05:50 Lipase 194 units/L (13-60) H 10/25/19 09:15 TSH 3.640 mlU/mL (0.270-4.200) 10/25/19 13:30 Free T4 0.98 ng/dL (0.76-1.46) 10/25/19 13:30 Thyroxine (T4) 5.8 ug/dL (4.0-12.0) 10/25/19 13:30 Urine Color Meagan (Yellow) 10/25/19 09:03 Urine Turbidity Clear (Clear) 10/25/19 09:03 Urine pH 5.0 (5.0-7.0) 10/25/19 09:03 Ur Specific [place] 1.017 (1.003-1.030) 10/25/19 09:03 Urine Protein <15 mg/dl mg/dL (Negative) 10/25/19 09:03 Urine Glucose (UA) Neg mg/dL (Negative) 10/25/19 09:03 Urine Ketones Neg mg/dL (Negative) 10/25/19 09:03 Urine Blood Neg (Negative) 10/25/19 09:03 Urine Nitrite Neg (Negative) 10/25/19 09:03 Urine Bilirubin Neg (Negative) 10/25/19 09:03 Urine Urobilinogen < 2.0 mg/dL (<2.0) 10/25/19 09:03 Ur Leukocyte Esterase Neg (Negative) 10/25/19 09:03 Urine WBC (Auto) 3.0 /HPF (0.0-6.0) 10/25/19 09:03 Urine RBC (Auto) 1.0 /HPF (0.0-6.0) 10/25/19 09:03 Urine Mucus Few /HPF 10/25/19 09:03 Active Medications - Current Medications Current Medications: Generic Name Dose Route Start Last Admin Trade Name Freq PRN Reason Stop Dose Admin Acetaminophen 650 mg 10/25/19 11:55 10/29/19 19:36 Tylenol PO 650 mg Q4H PRN Administration Pain MILD(1-3)/Fever >100.5/SANTANA Citalopram Hydrobromide 10 mg 10/26/19 10:00 11/02/19 09:40 Celexa PO 10 mg QDAY BRAXTON Administration Folic Acid 1 mg 10/29/19 10:00 11/02/19 09:39 Folvite PO 1 mg DAILY BRAXTON Administration Levofloxacin 500 mg 10/28/19 10:00 11/02/19 09:39 Levaquin PO 500 mg Q24HR BRAXTON Administration Metronidazole 500 mg 10/28/19 14:00 11/02/19 09:39 Flagyl PO 500 mg TID BRAXTON Administration Protocol Ondansetron HCl 4 mg 10/25/19 11:55 Zofran IV Q8H PRN Nausea And Vomiting Thiamine HCl 100 mg 10/29/19 10:00 11/02/19 09:40 Vitamin B-1 PO 100 mg QDAY BRAXTON Administration Nutrition/Malnutrition Assess - Dietary Evaluation Nutrition/Malnutrition Findings: Nutrition Notes Start: 10/26/19 13:22 Freq: Status: Active Protocol: Document 10/30/19 11:27 FARHAD (Rec: 10/30/19 11:34 FARHAD NAVAW- [email or web address]) Nutrition Notes Initial or Follow up Reassessment Current Diagnosis Sepsis,Hypertension Other Pertinent Diagnosis Colitis, metabolic encephalopathy, dysphagia Current Diet Renal mech soft + Ensure Enlive once daily Labs/Tests Reviewed Pertinent Medications Folic acid, Thiamine Height 5 ft 6 in Weight 66 kg Roberts Body Weight (kg) 59.09 BMI 23.5 Subjective/Other Information Pt pleasantly confused at time of visit. She reports fair appetite; consumed ~25% of breakfast this am, but drank ONS. She consumed 38% of last 2 recorded meals. Percent of energy/protein needs met: 55% energy 45% pro (does not include ONS) Burn Absent Trauma Absent #1 Nutrition Diagnosis Inadequate oral intake Diagnosis Progress(for reassessment Continues documentation) Is patient on ventilator? No Is Patient Ambulatory and/or Out of Bed No REE-([facility]-confined to bed) 4703.215 Calculation Used for Recommendations [facility] Additional Notes Pro needs 1-1.2g/k-79g/ day Fluid needs 1ml/kcal Nutrition Intervention Change Diet Order: Continue current diet Add Supplement/Snack (indicate name/kcal Ensure Enlive once daily ( /protein ) chocolate) Provides kCal: 350 Provides Protein (gm) 20 Goal #1 PO intake of meals plus ONS to meet at least 75% energy and pro needs Follow-Up By: 11/04/19 Additional Comments F/U: intakes (meals/ONS), wt
[2019-11-03] MEDS: THIAMINE 100 MG TAB PO SCH (09:41)
[2019-11-03] MEDS: FOLIC ACID 1 MG TAB PO SCH (09:41)
[2019-11-03] MEDS: levoFLOXacin 500 MG TAB PO SCH (09:41)
[2019-11-03] MEDS: metroNIDAZOLE 500 MG TAB PO SCH ×2 (09:41→22:02)
[2019-11-03] MEDS: CITALOPRAM 10 MG TAB PO SCH (09:42)
--- NOTE | 2019-11-03 15:04 | Progress Note ---
Assessment and Plan Sepsis due to Infectious Colitis, poa; - treated with empiric abx, cont to monitor Hypothermia; now resolved, TSH within normal limits Hypokalemia: replete and monitor closely Metabolic acidosis and lactic acidosis; s/p bicarb drip, likely from colitis Acute metabolic encephalopathy; likely due to kidney failure, MRI brain ordered - no acute change, ammonia levels within normal limits ISMAEL, uremia due to vasomotor nephropathy; resolved, treated with IVF, bicarb drip, Alcohol abuse per daughter, monitor for signs of withdrawal, thiamine and folate, thrombocytopenia is likely due to alcohol abuse, platelet counts 136 Moderate malnutrition, albumin of 3.2, CK 297, dietitian consulted Hypernatremia; resolved Dysphagia; speech therapy consulted, input noted to modify diet to mechanical soft with thin liquids Incidental very small Lung nodule, outpt f/u with repeat scan Anemia, drop in H/H with +FOBT most likely acute anemia from GIB/colitis: Consulted GI - colonoscopy as outpt. cont to monitor Awaiting placement - d/c pending on placement Brief History Patient is a 64 yo woman with a history of ETOH abuse, Nephrolithiasis and hypertension who presented to [facility] ED for AMS. She was found stuporous in her hotel room by a friend. In the ER patient was hypothermic, confused and appeared very dehydrated. Temp 93.4F, WBC 19.7, plt 131, Na 150, K 3.1, BUN 82, Cr 2.0. Placed on iv abx, iv fluid, monitored renal function. GI consulted. Improved clinically, treated for colitis. Now waiting on placement. * Imaging reviewed, chest x-ray and CT head no acute findings. Labs show severe metabolic acidosis and acute kidney failure with a BUN of 88 and creatinine of 2.4. * Brain MRI IMPRESSION: No acute abnormality. Chronic white matter signal change. Correlate of basal ganglia and thalamic calcifications noted. * 10/25/2019 CT abd/pelvis without contrast IMPRESSION: 1. Possible mild colonic wall thickening suggesting colitis without obvious complication 2. Distended gallbladder with general increased density no definite acute abnormality and no definite calculi seen 3. Tiny (just under 4mm) right middle lobe nodule. See below==> (Solid Nodule size* <6 mm -- Single or Multiple - Low Risk Patient: No routine follow-up - High Risk Patient: Optional CT at 12 months) Hospitalist Physical Gen: unkempt, WDWN, NAD, Awake, Alert, Orientated HEENT: NCAT, alopecia, EOMI, PERRL, OP Clear Neck: supple, no adenopathy, no thyromegaly, no JVD CVS/Heart: RRR, normal S1S2, pulses present bilaterally Chest/Lungs: CTA B, Symmetrical chest expansion, good air entry bilaterally GI/Abdomen: soft, NTND, good bowel sounds, no guarding or rebound /Bladder: no suprapubic tenderness, no CVA or paraspinal tenderness Extermity/Skin: no c/c/e, no obvious rash MSK: FROM x 4 Neuro: CN 2-12 grossly intact, no new focal deficits Psych: calm Subjective Date of service: 11/03/19 Principal diagnosis: ISMAEL Interval history: patient seen and examined no acute issue, d/c pending on placement Objective - Constitutional Vitals: Vital Signs - 12hr 11/03/19 05:11 Temperature 97.8 F Pulse Rate 89 Respiratory 20 Rate Blood Pressure 96/60 O2 Sat by Pulse 100 Oximetry - Labs CBC & Chem 7: 10/30/19 05:50 10/30/19 05:50
[2019-11-04] MEDS: metroNIDAZOLE 500 MG TAB PO SCH (09:49)
[2019-11-04] MEDS: THIAMINE 100 MG TAB PO SCH (09:49)
[2019-11-04] MEDS: FOLIC ACID 1 MG TAB PO SCH (09:49)
[2019-11-04] MEDS: CITALOPRAM 10 MG TAB PO SCH (09:49)
--- NOTE | 2019-11-04 12:57 | Progress Note ---
Assessment and Plan Sepsis due to Infectious Colitis, poa; - treated with empiric abx, cont to monitor Hypothermia; now resolved, TSH within normal limits Hypokalemia: replete and monitor closely Metabolic acidosis and lactic acidosis; s/p bicarb drip, likely from colitis Acute metabolic encephalopathy; likely due to kidney failure, MRI brain ordered - no acute change, ammonia levels within normal limits ISMAEL, uremia due to vasomotor nephropathy; resolved, treated with IVF, bicarb drip, Alcohol abuse per daughter, monitor for signs of withdrawal, thiamine and folate, thrombocytopenia is likely due to alcohol abuse, platelet counts 136 Moderate malnutrition, albumin of 3.2, CK 297, dietitian consulted Hypernatremia; resolved Dysphagia; speech therapy consulted, input noted to modify diet to mechanical soft with thin liquids Incidental very small Lung nodule, outpt f/u with repeat scan Anemia, drop in H/H with +FOBT most likely acute anemia from GIB/colitis: Consulted GI - colonoscopy as outpt. cont to monitor Awaiting placement - d/c pending on placement Brief History Patient is a 64 yo woman with a history of ETOH abuse, Nephrolithiasis and hypertension who presented to [facility] ED for AMS. She was found stuporous in her hotel room by a friend. In the ER patient was hypothermic, confused and appeared very dehydrated. Temp 93.4F, WBC 19.7, plt 131, Na 150, K 3.1, BUN 82, Cr 2.0. Placed on iv abx, iv fluid, monitored renal function. GI consulted. Improved clinically, treated for colitis. Now waiting on placement. * Imaging reviewed, chest x-ray and CT head no acute findings. Labs show severe metabolic acidosis and acute kidney failure with a BUN of 88 and creatinine of 2.4. * Brain MRI IMPRESSION: No acute abnormality. Chronic white matter signal change. Correlate of basal ganglia and thalamic calcifications noted. * 10/25/2019 CT abd/pelvis without contrast IMPRESSION: 1. Possible mild colonic wall thickening suggesting colitis without obvious complication 2. Distended gallbladder with general increased density no definite acute abnormality and no definite calculi seen 3. Tiny (just under 4mm) right middle lobe nodule. See below==> (Solid Nodule size* <6 mm -- Single or Multiple - Low Risk Patient: No routine follow-up - High Risk Patient: Optional CT at 12 months) Hospitalist Physical Gen: unkempt, WDWN, NAD, Awake, Alert, Orientated HEENT: NCAT, alopecia, EOMI, PERRL, OP Clear Neck: supple, no adenopathy, no thyromegaly, no JVD CVS/Heart: RRR, normal S1S2, pulses present bilaterally Chest/Lungs: CTA B, Symmetrical chest expansion, good air entry bilaterally GI/Abdomen: soft, NTND, good bowel sounds, no guarding or rebound /Bladder: no suprapubic tenderness, no CVA or paraspinal tenderness Extermity/Skin: no c/c/e, no obvious rash MSK: FROM x 4 Neuro: CN 2-12 grossly intact, no new focal deficits Psych: calm Subjective Date of service: 11/04/19 Principal diagnosis: ISMAEL Interval history: patient seen and examined no acute issue, d/c pending on placement Objective - Constitutional Vitals: Vital Signs - 12hr 11/04/19 11/04/19 04:00 06:24 Temperature 98.0 F Pulse Rate 97 H 97 H Respiratory 18 Rate Blood Pressure 114/78 O2 Sat by Pulse 99 Oximetry - Labs CBC & Chem 7: 10/30/19 05:50 10/30/19 05:50
[2019-11-05] MEDS: FOLIC ACID 1 MG TAB PO SCH (09:35)
[2019-11-05] MEDS: THIAMINE 100 MG TAB PO SCH (09:35)
[2019-11-05] MEDS: CITALOPRAM 10 MG TAB PO SCH (09:35)
--- NOTE | 2019-11-05 14:19 | Progress Note ---
Assessment and Plan Sepsis due to Infectious Colitis, poa; - treated with empiric abx, cont to monitor Hypothermia; now resolved, TSH within normal limits Hypokalemia: replete and monitor closely Metabolic acidosis and lactic acidosis; s/p bicarb drip, likely from colitis Acute metabolic encephalopathy; likely due to kidney failure, MRI brain ordered - no acute change, ammonia levels within normal limits ISMAEL, uremia due to vasomotor nephropathy; resolved, treated with IVF, bicarb drip, Alcohol abuse per daughter, monitor for signs of withdrawal, thiamine and folate, thrombocytopenia is likely due to alcohol abuse, platelet counts 136 Moderate malnutrition, albumin of 3.2, CK 297, dietitian consulted Hypernatremia; resolved Dysphagia; speech therapy consulted, input noted to modify diet to mechanical soft with thin liquids Incidental very small Lung nodule, outpt f/u with repeat scan Anemia, drop in H/H with +FOBT most likely acute anemia from GIB/colitis: Consulted GI - colonoscopy as outpt. cont to monitor Awaiting placement - d/c pending on placement Brief History Patient is a 64 yo woman with a history of ETOH abuse, Nephrolithiasis and hypertension who presented to [facility] ED for AMS. She was found stuporous in her hotel room by a friend. In the ER patient was hypothermic, confused and appeared very dehydrated. Temp 93.4F, WBC 19.7, plt 131, Na 150, K 3.1, BUN 82, Cr 2.0. Placed on iv abx, iv fluid, monitored renal function. GI consulted. Improved clinically, treated for colitis. Now waiting on placement. * Imaging reviewed, chest x-ray and CT head no acute findings. Labs show severe metabolic acidosis and acute kidney failure with a BUN of 88 and creatinine of 2.4. * Brain MRI IMPRESSION: No acute abnormality. Chronic white matter signal change. Correlate of basal ganglia and thalamic calcifications noted. * 10/25/2019 CT abd/pelvis without contrast IMPRESSION: 1. Possible mild colonic wall thickening suggesting colitis without obvious complication 2. Distended gallbladder with general increased density no definite acute abnormality and no definite calculi seen 3. Tiny (just under 4mm) right middle lobe nodule. See below==> (Solid Nodule size* <6 mm -- Single or Multiple - Low Risk Patient: No routine follow-up - High Risk Patient: Optional CT at 12 months) Hospitalist Physical Gen: Awake, Alert, Orientated HEENT: NCAT, alopecia, EOMI, PERRL, OP Clear Neck: supple, no adenopathy, no thyromegaly, no JVD CVS/Heart: RRR, normal S1S2, pulses present bilaterally Chest/Lungs: CTA B, Symmetrical chest expansion, good air entry bilaterally GI/Abdomen: soft, NTND, good bowel sounds, no guarding or rebound /Bladder: no suprapubic tenderness, no CVA or paraspinal tenderness Extermity/Skin: no c/c/e, no obvious rash MSK: FROM x 4 Neuro: CN 2-12 grossly intact, no new focal deficits Psych: calm Subjective Date of service: 11/05/19 Principal diagnosis: ISMAEL Interval history: patient seen and examined no acute issue, d/c pending on placement Objective - Constitutional Vitals: Vital Signs - 12hr 11/05/19 11/05/19 11/05/19 05:32 11:43 12:06 Temperature 97.8 F 98.2 F Pulse Rate 89 71 96 H Respiratory 20 18 Rate Blood Pressure 126/75 97/57 O2 Sat by Pulse 98 92 Oximetry - Labs CBC & Chem 7: 10/30/19 05:50 10/30/19 05:50
[2019-11-06] MEDS: THIAMINE 100 MG TAB PO SCH (10:20)
[2019-11-06] MEDS: FOLIC ACID 1 MG TAB PO SCH (10:20)
[2019-11-06] MEDS: CITALOPRAM 10 MG TAB PO SCH (10:20)
--- NOTE | 2019-11-06 11:14 | Discharge Summary ---
Providers - Providers Date of Admission: 10/25/19 11:14 Date of discharge: 11/06/19 Attending physician: LEONARD CARDENAS 10/25/19 11:47 Consult to Physician [CONS] Routine Comment: Consulting Provider: NELIA COPE Physician Instructions: Reason For Exam: ismael 10/25/19 11:56 Consult to Dietitian/Nutrition [CONS] Routine Physician Instructions: Reason For Exam: Reason for Consult: Malnutrition 10/26/19 13:46 Speech Therapy Evaluation and Treat [CONS] Routine Reason For Exam: dysphagia 10/28/19 09:32 Physical Therapy Evaluation and Treat [CONS] Routine Comment: Reason For Exam: Eval & treat 10/28/19 09:33 Occupational Therapy Evaluate and Treat [CONS] Routine Comment: Reason For Exam: Eval & Treat. 10/28/19 17:25 Consult to Physician [CONS] Routine Comment: Consulting Provider: RANDALL DORANTES Physician Instructions: Reason For Exam: anemia with +FOBT and colitis 11/01/19 05:16 Consult to Wound/ET Nurse [CONS] Routine Reason For Exam: wound eval 11/02/19 09:39 Physical Therapy Evaluation and Treat [CONS] Routine Comment: Reason For Exam: eval & treat 11/02/19 09:40 Occupational Therapy Evaluate and Treat [CONS] Routine Comment: Reason For Exam: Eval & Treat Hospitalization Condition: Stable Hospital course: Patient is a 64 yo woman with a history of ETOH abuse, Nephrolithiasis and hypertension who presented to [facility] ED for AMS. She was found stuporous in her hotel room by a friend. In the ER patient was hypothermic, confused and appeared very dehydrated. Temp 93.4F, WBC 19.7, plt 131, Na 150, K 3.1, BUN 82, Cr 2.0. Placed on iv abx, iv fluid, monitored renal function. GI was consulted. Improved clinically, treated for colitis. Then patient was waiting on placement. She was then discharge dto SNF in stable condition. * chest x-ray and CT head no acute findings. Labs show severe metabolic acidosis and acute kidney failure with a BUN of 88 and creatinine of 2.4 on admission. * Brain MRI IMPRESSION: No acute abnormality. Chronic white matter signal change. Correlate of basal ganglia and thalamic calcifications noted. * 10/25/2019 CT abd/pelvis without contrast IMPRESSION: 1. Possible mild colonic wall thickening suggesting colitis without obvious complication 2. Distended gallbladder with general increased density no definite acute abnormality and no definite calculi seen 3. Tiny (just under 4mm) right middle lobe nodule. See below==> (Solid Nodule size* <6 mm -- Single or Multiple - Low Risk Patient: No routine follow-up - High Risk Patient: Optional CT at 12 months) Discharge diagnosis and Mx: Sepsis due to Infectious Colitis, poa; - treated with empiric abx, Hypothermia; now resolved, TSH within normal limits Hypokalemia: repleted and monitored closely Metabolic acidosis and lactic acidosis; s/p bicarb drip, likely from colitis, resolved Acute metabolic encephalopathy; likely due to kidney failure, MRI brain ordered - no acute change, ammonia levels within normal limits - mental status at baseline now ISMAEL, uremia due to vasomotor nephropathy; resolved, treated with IVF, bicarb drip, Alcohol abuse per daughter, monitored for signs of withdrawal, on thiamine and folate, thrombocytopenia is likely due to alcohol abuse, platelet counts 136, monitored Moderate malnutrition, albumin of 3.2, CK 297, dietitian consulted Hypernatremia; resolved with iv fluid Dysphagia; speech therapy consulted, input noted to modify diet to mechanical soft with thin liquids Incidental very small Lung nodule, outpt f/u with repeat scan Anemia, drop in H/H with +FOBT most likely acute anemia from GIB/colitis: Consulted GI - colonoscopy as outpt. cont to monitor disposition: SNF Hospitalist Physical Gen: Awake, Alert, Orientated HEENT: NCAT, alopecia, EOMI, PERRL, OP Clear Neck: supple, no adenopathy, no thyromegaly, no JVD CVS/Heart: RRR, normal S1S2, pulses present bilaterally Chest/Lungs: CTA B, Symmetrical chest expansion, good air entry bilaterally GI/Abdomen: soft, NTND, good bowel sounds, no guarding or rebound /Bladder: no suprapubic tenderness, no CVA or paraspinal tenderness Extermity/Skin: no c/c/e, no obvious rash MSK: FROM x 4 Neuro: CN 2-12 grossly intact, no new focal deficits Psych: calm Disposition: DC/[place]-03 SNF [facility] Time spent for discharge: 34 minutes Core Measure Documentation - Palliative Care Palliative Care/ Comfort Measures: Not Applicable - Core Measures Any of the following diagnoses?: none Exam - Constitutional Vitals: Temp Pulse Resp BP Pulse Ox 98.4 F 96 H 14 123/75 98 11/06/19 09:09 11/06/19 09:09 11/06/19 09:09 11/06/19 09:09 11/06/19 09:09 Plan Activity: advance as tolerated Weight Bearing Status: Weight Bear as Tolerated Diet: low fat Follow up with: RYAN DUKES MD [Referring] - 3-5 Days SHA BERKOWITZ MD [Staff Physician] - 7 Days
[2019-11-06 13:29] VITALS: BP 123/81
== END 2019-11-06 16:50 | DRG 871 ==
LOC: ED 08:40 → IMCU 11:14 → 3A 10-27 20:03
PROVIDERS: ADMIT Internal Medicine; ATTEND Internal Medicine
DX: A41.9 Sepsis, unspecified organism (principal); N17.0 Acute kidney failure with tubular necrosis; G93.41 Metabolic encephalopathy; E87.2 Acidosis; E44.0 Moderate protein-calorie malnutrition; A09 Infectious gastroenteritis and colitis, unspecified; E87.0 Hyperosmolality and hypernatremia; R79.89 Other specified abnormal findings of blood chemistry; I10 Essential (primary) hypertension; T68.XXXA Hypothermia, initial encounter; R65.20 Severe sepsis without septic shock; E86.0 Dehydration; F10.10 Alcohol abuse, uncomplicated; E87.6 Hypokalemia; R47.02 Dysphasia; D69.6 Thrombocytopenia, unspecified; D64.9 Anemia, unspecified; R91.1 Solitary pulmonary nodule; Z87.442 Personal history of urinary calculi; Z93.6 Other artificial openings of urinary tract status; Z82.49 Family history of ischemic heart disease and other diseases of the circulatory system; Z68.24 Body mass index [BMI] 24.0-24.9, adult; Z71.3 Dietary counseling and surveillance
CPT/HCPCS: 36415; 70450; 70551; 71045; 74176; 80048; 80053; 80076; 81001; 82140; 82270; 82550; 82553; 82805; 82962; 83690; 83735; 83880; 84100; 84436; 84439; 84443; 84484; 85007; 85025; 85027; 85610; 85730; 87040; 87045; 87086; 93005; 93010; 96374; G0378; J0692; J1650; J3370; J3411; J3480; J7030; J7040; J7050; J7070